=== PATIENT | male | born 1945 | race Caucasian/White ===

== ENCOUNTER 2019-06-29 15:12 | Inpatient (IN) ==
[2019-06-29 16:10] LABS: Appearance Urine Clear (Clear); Bacteria Urine Automated Negative (Negative); Blood Urine Negative (Negative); Color Urine Dark Yellow; Glucose Urine UA Negative (Negative); Ketones Urine Trace (Negative); Leukocyte Esterase Urine Negative (Negative); Nitrite Urine Negative (Negative); Protein Urine 1+ (Negative); RBC Urine Automated 0-4 /hpf (0-4); Specific Gravity Urine 1.032 (1.000-1.030); Urobilinogen Urine Negative (Negative)
[2019-06-29 16:12] LABS: Bilirubin Urine Negative (Negative); Ictotest Urine Negative (Negative)
[2019-06-29 16:20] LABS: Mucus Urine Present (None Prsent)
[2019-06-29 16:26] LABS: Basophils # (auto) 0.03 K/uL (0-0.2); Basophils % (auto) 0.3 %; Eosinophils # (auto) 0.03 K/uL (0-0.5); Eosinophils % (auto) 0.3 %; Hematocrit (blood only) 44.7 % (42-52); Immature Granulocytes # (auto) 0.03 K/uL (0.00-0.02); Immature Granulocytes % (auto) 0.3 %; Lymphocytes # (auto) 1.14 K/uL (1.2-3.4); Lymphocytes % (auto) 12.2 %; Mean Corpuscular Hemoglobin 32.9 pg (25-34); Mean Corpuscular Hgb Conc 35.8 g/dL (32-36); Mean Platelet Volume 8.2 fL (7.4-10.4); Monocytes # (auto) 1.09 K/uL (0.11-0.59); Monocytes % (auto) 11.6 %; Neutrophils # (auto) 7.04 K/uL (1.4-6.5); Neutrophils % (auto) 75.3 %; Platelet Count 213 K/uL (130-400); RDW Coefficient of Variation 12.8 % (11.5-14.5); RDW Standard Deviation 43.3 fL (36.4-46.3); Red Blood Count 4.86 M/uL (4.7-6.1); White Blood Count 9.36 K/uL (4.8-10.8)
[2019-06-29 16:33] LABS: Amphetamines+Metham, Urine Neg (Neg); Barbiturates, Urine Neg (Neg); Benzodiazepine, Urine Neg (Neg); Cocaine, Urine Neg (Neg); MDMA (Ecstacy), Urine Neg (Neg); Methadone, Urine Neg (Neg); Opiate, Urine Neg (Neg); Phencyclidine, Urine Neg (Neg)
[2019-06-29 16:44] LABS: Albumin Level 4.4 gm/dl (3.4-5.0); BUN Creatinine Ratio 20.8 (10-20); Calcium 9.7 mg/dl (8.5-10.1); Creatinine Clr Calc Pharmacy 63.5 ml/min; Est GFR (African American) 71.3; Est GFR (Non-African American) 61.5
[2019-06-29 16:49] LABS: Acetaminophen < 2 ug/ml (10-30)
[2019-06-29 16:50] LABS: Salicylate < 1.7 mg/dl (2.8-20)
[2019-06-29 16:55] LABS: Albumin Globulin Ratio 1.3 (0.9-2); Bilirubin,Total 0.9 mg/dl (0.2-1); Globulin 3.4 gm/dl (2.5-4.0); Thyroid Stimulating Hormone 2.57 uIu/ml (0.300-4.500); Total Protein 7.8 gm/dl (6.4-8.2)
--- NOTE | 2019-06-29 17:00 | CT Scan Report ---
CT head/brain wo con CLINICAL HISTORY: 73 years-old Male with confusion. Acutely altered mental status with confusion TECHNIQUE: Multiple axial CT images of the head were obtained without contrast. A dose lowering tech nique was utilized adhering to the principles of ALARA. CT DOSE: 614.27 mGy.cm COMPARISON: None. FINDINGS: No acute intracranial hemorrhage, midline shift, intracranial mass, hydrocephalus, territorial ischem ia or abnormal extra-axial collection. Mild age-related involutional changes. Cerebral vascular calci fications are noted. The calvarium is intact. Mastoid air cells are clear. Mild mucosal thickening about the paranasal si nuses. Soft tissues and orbits are unremarkable. Prior bilateral cataract repair. IMPRESSION: No acute intracranial abnormality. The above report was generated using voice recognition software. It may contain grammatical, syntax o r spelling errors. Electronically signed by: Bill Duffy M.D. 06/29/2019 4:59 PM
--- NOTE | 2019-06-29 17:24 | Emergency Department Note ---
Entered by Israel Adhikari acting as a scribe for History of Present Illness General Chief complaint: Mental Health Evaluation Stated complaint: MENTAL HEALTH EVALUATION Time Seen by Provider: 06/29/19 16:21 Source: patient Limitations: no limitations History of Present Illness Location: head Pain Consistency: + intermittent Quality: + other (hallucinations) Exacerbated By: + other (getting kicked out of son's house) Associated symptoms: + denies other symptoms (diarrhea, suicidality, ) and + other (hearing voices); no nausea/vomiting Treatments prior to arrival: none The patient is a 73 year old male who presents to the Emergency Room for a mental health evaluation. The patient states his son thinks he is crazy. He notes he used to live with his son and [id number] but states he was kicked out after his [id number]'s parents moved in. He states he has been either living his his car, his brother's house, or his daughter's house for the past few months. He notes people have been talking to him and he has been talking back. He states that no one else can see the people that he has been talking to. Nursing notes the patient's son is concerned because the patient is talking to people that are not there. The patient notes he can intermittently hear other people and nobody else can. The patient notes he has never been diagnosed with any mental disorder. He states he does not take any medications regularly. He notes he used to drink a lot of alcohol but now he usually drinks 2-3 beers a day. He notes he had his last drink 3 nights ago. The patient denies vomiting, diarrhea, trying to hurt himself before, and taking any drugs. He states he is not suicidal but he might go there. He states he chews tobacco. 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 and A total of 10 systems reviewed and were otherwise negative Physical Exam Vital Signs Vital Signs - 24 hr 06/29/19 15:22 06/29/19 17:21 Temperature 37.2 C Temperature Source Oral Sepsis Recent Fever Within 48 Hours No Sepsis Action Taken by Nursing No Action Required Pulse Rate 95 H Pulse Rate [Apical] 88 Pulse Rhythm Regular Pulse Strength Normal Respiratory Rate 16 18 Respiratory Effort / Characteristics Non-Labored Respiratory Depth Normal Respiratory Pattern Regular Blood Pressure 159/91 H Blood Pressure [Left Arm] 149/90 H Blood Pressure Mean 113 Blood Pressure Mean [Left Arm] 109 Blood Pressure Position Sitting Pulse Oximetry 97 97 Oxygen Delivery Method Room Air Room Air GENERAL: Patient is in no acute distress. HEENT: No acute trauma, normocephalic atraumatic, mucous membranes moist, no nasal congestion, no scleral icterus. NECK: No stridor, no adenopathy, no meningismus, trachea is midline. LUNGS: Clear to auscultation bilaterally, no wheeze, no rhonchi, breath sounds equal. HEART: Without murmurs gallops or rubs, regular rate and rhythm. ABDOMEN: Soft, nontender, bowel sounds positive, no hernias, no peritonitis. EXTREMITIES: No cyanosis or edema, full range of motion of all the joints without pain or difficulty, no signs for acute trauma. NEUROLOGIC: Oriented x 3, no acute motor or sensory deficits, no focal weakness. SKIN: No rash, no jaundice, no diaphoresis. PSYCH: Cooperative. Admits to hearing voices that others cannot. Denies active suicidality but is concerned that things could escalate quickly. Course 1626: The patient was evaluated in room A8, and a complete history and physical examination were performed. 1926: The patient is being referred to [address] [place] [address]. 2144: The patient has been admitted to [address] [place] [address]. Medical Decision Making Differential Diagnosis Differential Diagnosis: Intracranial bleeding, dementia, psychosis, suicidality, mental break, hallucinations, and electrolyte imbalance. Medical Records Attestation: I reviewed the patient's medical records. Home Medications Current Medication List: was personally reviewed by me Laboratory Data Attestation: I reviewed the patient's lab results. Result diagrams: 06/29/19 16:04 06/29/19 16:04 Lab Results 06/29/19 06/29/19 06/29/19 Range/Units 15:47 15:47 16:04 WBC 9.36 (4.8-10.8) K/uL RBC 4.86 (4.7-6.1) M/uL Hgb 16.0 (14.0-18.0) g/dL Hct 44.7 (42-52) % MCV 92.0 (80-100) fL MCH 32.9 (25-34) pg MCHC 35.8 (32-36) g/dL RDW Std Deviation 43.3 (36.4-46.3) fL RDW Coeff of Mavis 12.8 (11.5-14.5) % Plt Count 213 (130-400) K/uL MPV 8.2 (7.4-10.4) fL Immature Gran % (Auto) 0.3 % Neut % (Auto) 75.3 % Lymph % (Auto) 12.2 % [place] % (Auto) 11.6 % Eos % (Auto) 0.3 % Baso % (Auto) 0.3 % Immature Gran # (Auto) 0.03 H (0.00-0.02) K/uL Neut # (Auto) 7.04 H (1.4-6.5) K/uL Lymph # (Auto) 1.14 L (1.2-3.4) K/uL [place] # (Auto) 1.09 H (0.11-0.59) K/uL Eos # (Auto) 0.03 (0-0.5) K/uL Baso # (Auto) 0.03 (0-0.2) K/uL Sodium (136-145) mmol/L Potassium (3.5-5.1) mmol/L Chloride (98-107) mmol/L Carbon Dioxide (21-32) mmol/L Anion Gap (3-11) BUN (7-18) mg/dl Creatinine (0.6-1.4) mg/dl Est Cr Clr Drug Dosing ml/min Est GFR ( Amer) Est GFR (Non-Af Amer) BUN/Creatinine Ratio (10-20) Glucose (70-99) mg/dl Calcium (8.5-10.1) mg/dl Total Bilirubin (0.2-1) mg/dl AST (15-37) U/L ALT (12-78) U/L Alkaline Phosphatase (45-117) U/L Total Protein (6.4-8.2) gm/dl Albumin (3.4-5.0) gm/dl Globulin (2.5-4.0) gm/dl Albumin/Globulin Ratio (0.9-2) TSH (0.300-4.500) uIu/ml Urine Color Dark Yellow Urine Appearance Clear (Clear) Urine pH 5.0 (4.5-7.5) Ur Specific [place] 1.032 H (1.000-1.030) Urine Protein 1+ H (Negative) Urine Glucose (UA) Negative (Negative) Urine Ketones Trace H (Negative) Urine Blood Negative (Negative) Urine Nitrite Negative (Negative) Urine Bilirubin Negative (Negative) Urine Urobilinogen Negative (Negative) Ur Leukocyte Esterase Negative (Negative) Urine WBC (Auto) 1-5 (0-5) /hpf Urine RBC (Auto) 0-4 (0-4) /hpf U Hyaline Cast (Auto) 5-10 H (0-5) /lpf U Epithel Cells (Auto) 10-20 H (0-5) /lpf Urine Bacteria (Auto) Negative (Negative) Urine Mucus Present A (None Prsent) Salicylates (2.8-20) mg/dl Urine Opiates Screen Neg (Neg) Ur Methadone, Qual Neg (Neg) Acetaminophen (10-30) ug/ml Urine Barbiturates Neg (Neg) Ur Phencyclidine (PCP) Neg (Neg) U Amphetamin/Meth Scrn Neg (Neg) MDMA (Ecstasy) Screen Neg (Neg) U Benzodiazepines Scrn Neg (Neg) Ur Cocaine Metabolite Neg (Neg) U Marijuana (THC) Screen Neg (Neg) Ethyl Alcohol mg/dL (0-3) mg/dl 06/29/19 06/29/19 06/29/19 Range/Units 16:04 16:04 16:04 WBC (4.8-10.8) K/uL RBC (4.7-6.1) M/uL Hgb (14.0-18.0) g/dL Hct (42-52) % MCV (80-100) fL MCH (25-34) pg MCHC (32-36) g/dL RDW Std Deviation (36.4-46.3) fL RDW Coeff of Mavis (11.5-14.5) % Plt Count (130-400) K/uL MPV (7.4-10.4) fL Immature Gran % (Auto) % Neut % (Auto) % Lymph % (Auto) % [place] % (Auto) % Eos % (Auto) % Baso % (Auto) % Immature Gran # (Auto) (0.00-0.02) K/uL Neut # (Auto) (1.4-6.5) K/uL Lymph # (Auto) (1.2-3.4) K/uL [place] # (Auto) (0.11-0.59) K/uL Eos # (Auto) (0-0.5) K/uL Baso # (Auto) (0-0.2) K/uL Sodium 136 (136-145) mmol/L Potassium 4.0 (3.5-5.1) mmol/L Chloride 102 (98-107) mmol/L Carbon Dioxide 27 (21-32) mmol/L Anion Gap 8.0 (3-11) BUN 24 H (7-18) mg/dl Creatinine 1.17 (0.6-1.4) mg/dl Est Cr Clr Drug Dosing 63.5 ml/min Est GFR ( Amer) 71.3 Est GFR (Non-Af Amer) 61.5 BUN/Creatinine Ratio 20.8 H (10-20) Glucose 106 H (70-99) mg/dl Calcium 9.7 (8.5-10.1) mg/dl Total Bilirubin 0.9 (0.2-1) mg/dl AST 18 (15-37) U/L ALT 19 (12-78) U/L Alkaline Phosphatase 76 (45-117) U/L Total Protein 7.8 (6.4-8.2) gm/dl Albumin 4.4 (3.4-5.0) gm/dl Globulin 3.4 (2.5-4.0) gm/dl Albumin/Globulin Ratio 1.3 (0.9-2) TSH 2.570 (0.300-4.500) uIu/ml Urine Color Urine Appearance (Clear) Urine pH (4.5-7.5) Ur Specific [place] (1.000-1.030) Urine Protein (Negative) Urine Glucose (UA) (Negative) Urine Ketones (Negative) Urine Blood (Negative) Urine Nitrite (Negative) Urine Bilirubin (Negative) Urine Urobilinogen (Negative) Ur Leukocyte Esterase (Negative) Urine WBC (Auto) (0-5) /hpf Urine RBC (Auto) (0-4) /hpf U Hyaline Cast (Auto) (0-5) /lpf U Epithel Cells (Auto) (0-5) /lpf Urine Bacteria (Auto) (Negative) Urine Mucus (None Prsent) Salicylates < 1.7 L (2.8-20) mg/dl Urine Opiates Screen (Neg) Ur Methadone, Qual (Neg) Acetaminophen < 2 L (10-30) ug/ml Urine Barbiturates (Neg) Ur Phencyclidine (PCP) (Neg) U Amphetamin/Meth Scrn (Neg) MDMA (Ecstasy) Screen (Neg) U Benzodiazepines Scrn (Neg) Ur Cocaine Metabolite (Neg) U Marijuana (THC) Screen (Neg) Ethyl Alcohol mg/dL < 3.0 (0-3) mg/dl Imaging Data Radiologist's Impression: Radiology results as stated below per my review and the radiologist's interpretation: CT head/brain wo con CLINICAL HISTORY: 73 years-old Male with confusion. Acutely altered mental status with confusion TECHNIQUE: Multiple axial CT images of the head were obtained without contrast. A dose lowering technique was utilized adhering to the principles of ALARA. CT DOSE: 614.27 mGy.cm COMPARISON: None. FINDINGS: No acute intracranial hemorrhage, midline shift, intracranial mass, hydrocephalus, territorial ischemia or abnormal extra-axial collection. Mild age-related involutional changes. Cerebral vascular calcifications are noted. The calvarium is intact. Mastoid air cells are clear. Mild mucosal thickening about the paranasal sinuses. Soft tissues and orbits are unremarkable. Prior bilateral cataract repair. IMPRESSION: No acute intracranial abnormality. The above report was generated using voice recognition software. It may contain grammatical, syntax or spelling errors. Electronically signed by: Bill Duffy M.D. 06/29/2019 4:59 PM Blood Pressure Blood Pressure Findings: Elevated blood pressure Blood Pressure Disposition: further management by hospitalist CLARISSE Narrative There is no leukocytosis or concerning anemia. No significant electrolyte abnormality or kidney failure. No liver enzyme elevation. The patient appears to be in a euthyroid state. Urinalysis does not show evidence for infection, some contamination was seen. Urine tox was negative. Alcohol, Tylenol and aspirin levels were basically undetectable. Brain CT showed no acute bleed or mass-effect. The patient presents with hallucinations. He believes he is seeing people that no one else can see and he is talking to people that no one else can hear. He believes he is being watched. The patient denies active suicidality but is concerned that things may escalate to that point. His son is concerned about the patient's mental health and safety. The patient has been living out of his car and sometimes staying with family. Patient was seen by psychiatry case management. A referral was made to our psychiatric unit on [address]. They did accept the patient. Patient will be hospitalized for his psychosis. The patient has been cooperative during his ED stay. The patient was admitted voluntarily. Impression & Plan Suicidal ideation, Hallucination, Psychosis Discharge Plan Visit Data Chief Complaint: Mental Health Evaluation Stated Complaint: MENTAL HEALTH EVALUATION ED Provider: Abram Hughes Discharge Problem: Suicidal ideation, Hallucination, Psychosis Patient Disposition: Transfer Behavioral Health Fac Discharge Instructions Interventions: ED Discharge Assessment Last Done: 06/29/19 22:09 Discharge Problem: Psychosis Qualifiers: Psychosis type: unspecified psychosis type Qualified Code(s): F29 - Unspecified psychosis not due to a substance or known physiological condition The scribe's documentation has been prepared under my direction and personally reviewed by me in its entirety. I confirm that the note above accurately reflects all work, treatment, procedures, and medical decision making performed by me.
[2019-06-29] MEDS ORDERED: MAGNESIUM HYDROXIDE SUSP 30 ML UDC PO PRN (21:25)
[2019-06-29] MEDS ORDERED: BISMUTH SUBSALICYLATE PER ML OMNICELL CHARGE PO PRN (21:25)
[2019-06-29] MEDS ORDERED: SODIUM CHLORIDE 0.65% NA SOLN 45 ML (OCEAN) PRN (21:25)
[2019-06-29] MEDS ORDERED: ACETAMINOPHEN 325 MG TAB PO PRN (21:25)
[2019-06-29] MEDS ORDERED: ALUMINUM/MAGNESIUM SUSP 30 ML UDC PO PRN (21:25)
[2019-06-29 22:11] VITALS: O2SAT 98
--- NOTE | 2019-06-30 07:00 | History & Physical ---
Date of Service June 30, 2019 Impression / Recommendations Impression 73-year-old male admitted voluntarily for inpatient psychiatric treatment due to reports of auditory and visual hallucinations and paranoia. Pt demonstrated poor self-care, as he had believed he was kicked out of his son's home and began living in his car. Pt believes that he is being monitored by unknown individuals, and was told this will continue for "the rest of my life." Pt has no prior psychiatric history, which raises suspicion as to a possible organic cause for his presentation. We will require collateral information from the patient's family to better determine. Will treat as psychosis, NOS while additional information is gathered. While differential includes brief psychotic disorder, mood disorder with psychotic features, or other psychiatric etiology; it is also possible that the patient's condition may be related to organic causes. CT in the ED was unremarkable, and attempts to get an MRI prior to patient's admission were unsuccessful. Lab work in the ED was largely WNL. Would be beneficial to obtain a MoCA or other cognitive assessment during this admission as well. We will add B12, folic acid, and heavy metals testing to his fasting glucose and lipid panel tomorrow. Will suggest patient utilize risperidone 0.5mg q4h prn for psychosis/anxiety related to hallucinations. At this time, patient demonstrates a high risk of harm to self or others given reported suicidal and homicidal commands from his auditory hallucinations. Will maintain private room until his risk to others is better assessed. Inpatient psychiatric admission is medically necessary at this time due to hallucinations, paranoia, and demonstrated inability to care for self outside of a supervised setting. Dr. Pratibha Biswas was directly involved in review and discussion of the patient's case and participated in medical decision making regarding treatment recommendations. (1) Suicidal ideation: 06/30 - Denies intent to harm self, but admits to hearing commands to kill himself and others - Admitted to a locked inpatient behavioral health unit, on q15 minute safety checks - MNPR until safety can be adequately assessed - Encourage medication initiation/adjustments as indicated - Encourage participation in group and recreational therapies - Gather collateral information from outpatient providers - Suggest family meeting to involve outpatient supports in safety planning - Arrange appropriate aftercare (2) Psychosis: 06/30 - Very wide differential for this patient, as his presentation of psychosis is not typical given his age and lack of prior psychiatric history. - Gather collateral information from patient's family - Encourage use of risperidone 0.5mg q4h prn psychosis/anxiety - Fasting glucose and lipid panel ordered for tomorrow morning - Will attempt to further rule out organic cause of psychosis with additional blood work: B12, folic acid, heavy metals - Will be ideal for patient to have an MRI after discharge, as it is possible the patient's condition is organic in nature. Attempts to have an MRI prior to admission were not successful. Psychosis type: unspecified psychosis type Qualified Code(s): F29 - Unspecified psychosis not due to a substance or known physiological condition (3) Alcohol abuse: 06/30 - Pt reports rather significant history of alcohol abuse. States he has not been drinking for several days prior to admission. - Vitals every shift, with close observation for signs of withdrawal - can order AWSS protocol if needed - Pt unable to participate in intervention at this time, can readdress when more appropriate Inventory Assets Strengths: willingness for treatment, supportive family Needs: additional medical work-up, gather collateral information, initiation of medication to allow for resolution of hallucinations Risk Factors Assessment Male: Yes : Yes Do You Have Access To A Gun?: Yes (gives convoluted report, but ultimately admits to having access) Health Problems: No Mental Health Diagnoses: No Substance Use Disorders: Yes Previous Attempt: No Family History of Suicide: No Previous Psychiatric Hospitalization: No Hopelessness: No Protective Factors Assessment Anabaptist Beliefs: No : No Responsible for Young Children: No Employed: No (retired) Stable Relationships: No Supportive Family: Yes Psychiatric History Identifying Data KRISHNA CERVANTES is a 73-year-old M who reports he has been living in a car for the past 2 months, having previously lived with his son and [id number] for the past 5 years. Pt has no known psychiatric history but was admitted on 06/29/19 22:08 on a 201 voluntary commitment for reports of auditory/visual hallucinations, paranoia, disorganization, and inability to care for self. Daughter and son were reportedly concerned and suggested mental health evaluation. Information from the patient is not clearly reliable. Chief Complaint "Ok, I guess. I don't really like to talk, they're listening in now." History of Present Illness Krishna Cervantes (Russ) is a 73-year-old male admitted voluntarily for inpatient psychiatric treatment due to onset of hallucinations and paranoia in the past "couple months." Pt was reportedly living out of his car recently, and has demonstrated an inability to care for himself. Pt had reported the voices he hears are giving commands to harm both himself and others. Pt's son was present in the ED and confirmed that this is behavior that he has not previously noticed in his father, with whom he had been living for several years. Pt is agreeable to evaluation today; however, he reports he is concerned as "they are listening in now." Pt states that he believes he is being "monitored" by "them" - having people listening in on his conversations. Pt states the voices began about 2 months prior to his admission, and have informed him that they will continue to monitor him "for the rest of my life, they told me they would be with me til I ." Pt's best explanation of the voices' onset is - "They said they're getting back at me after I threatened Maddy's [DIL] parents." Pt reports that he had been living in a "rented room in my son's basement", and that "my [id number] parents lived across the stairs. They were talking about me, I could hear them." Pt states initially that he did not confront the individuals, but then later contradicts himself by reporting "I told them they're kimo I don't shoot them." Pt states that the current voices did not begin immediately after the situation, but with a "break in between." Pt reports hearing at least 6 voices, both male and female. He states they occur both individually and "altogether." When asked if there is any place he finds retreat from the voices, he states, "I haven't found it yet." Pt admits that they are listening in on the evaluation, and that they are "interrupting us." He states he is being told to "take my phone and put it in a dumpster." After making this statement, the patient huffs and shakes his head. He states they have been in his room since his admission and "even monitor me in the bathroom." When asked what patient feels he needs from this admission, he states, "You could help me figure out who these guys are, that way I can take them to court or have them arrested or something." When offered medication that could help the voices to lessen and allow him to think clearly, the patient states "ME taking a medication is going to make THEM go away, mendoza! They said they'll be here for the rest of my life." He does admit that they are telling him to harm himself - "like drive myself between two semis, or shoot myself between the eyes." Pt denies today that he has been told to harm others, but also shares with this provider that things the voices say are "things I can't repeat." In the ED, he did admit to hearing commands to harm others. Pt reports his mood has been lower that usual, but reports it is in the context of these voices. He states he has not been sleeping well, also blaming his difficulty falling and staying asleep on "the surveillance." Pt states he continues to have an appetite and is "hungry", but that he has not been eating as much since he has been living in his car. Pt believes he has been evicted from his son's house, which we were informed is not the case. Pt admits to difficulty concentrating because of the voices. He reports paranoia. Pt denies any prior history of psychiatric concerns. He has never been hospitalized for mental health conditions or was seen for counseling. He admits to consuming beer - 2-3 cans daily, for "mendoza, all my life." Pt states he has not had a drink in about 3-4 days. He denies use of illicit substances. Past Psychiatric History Previous Psych History: None Current Psychiatric Diagnosis: No prior MH diagnosis Outpatient Services: None Previous Psych Admissions: Denies Do You Have Access To A Gun?: Yes (gives convoluted report, but ultimately admits to having access) History of Previous Suicide Attempt: No Describe Attempts in the Past: None Past Medication Trials: None Past Head Trauma/Neuro History History of Concussion/Seizure: No Allergies Allergy/AdvReac Type Severity Reaction Status Date / Time Penicillins Allergy Unknown Unknown Verified 06/29/19 20:39 Home Medications Home Medications Medication Instructions Recorded Confirmed Type No Known Home Medications 06/29/19 06/29/19 History Family History Family History of: None Alcohol History Hx of Alcohol Use Over the Past 12 Months: Yes (2-3 beers daily. none past few days) AUDIT Total Score: 3 Pt reports consuming 2-3 beers a night, for "years". He states he may at times consume up to a 6-pack. Has not had a drink for several days prior to admission. He reports history of 5 DUIs, most recently in 2012. Incarcerated in 2002 for his 4th. 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 Beliefs That Will Affect Care: None Feels Safe at Home: Yes Smoking Status: Never smoker Review of Systems Review of Systems: Constitutional: reports increased fatigue Cardiovascular: reports tachycardia when hearing the voices Respiratory: reports SOB when hearing the voices Gastrointestinal: reports episodic abdominal pain Neurological: reports often feeling lightheaded in the AM, improves over the course of the day Psychiatric: denies symptoms other than stated above Musculoskeletal: reports generalized body aches, knee pain Total of at least 10 systems reviewed, pertinent positives as above and in HPI. Physical Exam Psychiatric: Orientation: alert, cooperative (superfically, preoccupied with hallucinations) and + guarded Apperance: appropriately dressed, appropriately groomed and appeared stated age Eye Contact: + fair eye contact Motor Behavior: steady gait and station and no abnormal motor movements Speech: normal rate/rhythm/volume of speech (only brief responses to questions) Affect: + flat affect Mood: + depressed mood ("really not too good") and + anxious mood Thought Process: + circumstantial thought process, + perseveration and + concrete thought process Thought Content: + preoccupation (with hallucinations, stopping conversations to report when they interrupt), + paranoid and + delusions Suicidal Thoughts: denies suicidal thoughts and denies suicidal intent But admits that voices are telling him to harm himself Homicidal Thoughts: denies homicidal thoughts but admitted in the ED that voices are telling him to harm others Hallucinations: + auditory hallucinations (at least 6 voices, male and female, occur constantly) and + visual hallucinations (verbalized visual hallucinations in the ED) Cognition: attention grossly intact and language grossly intact Estimated Intelligence: consistent with education level Insight: + severely impaired insight Judgement: + severely impaired judgement Vital Signs (Past 24 Hours): Last Vital Signs Temp 37.2 C 06/29/19 22:17 Pulse 77 06/29/19 22:17 Resp 19 06/29/19 22:17 BP 135/78 06/29/19 22:17 Pulse Ox 98 06/29/19 22:17 Exam Statement: A physical exam was performed in the ER prior to admission to the unit by Dr. Abram Hughes MD. I accept that physical as correct/medical clearance for the inpatient physical exam. Results & Data Laboratory Results Laboratory Results - last 24 hr 06/29/19 06/29/19 06/29/19 15:47 15:47 16:04 WBC 9.36 RBC 4.86 Hgb 16.0 Hct 44.7 MCV 92.0 MCH 32.9 MCHC 35.8 RDW Std Deviation 43.3 RDW Coeff of Mavis 12.8 Plt Count 213 MPV 8.2 Immature Gran % (Auto) 0.3 Neut % (Auto) 75.3 Lymph % (Auto) 12.2 Rapides % (Auto) 11.6 Eos % (Auto) 0.3 Baso % (Auto) 0.3 Immature Gran # (Auto) 0.03 H Neut # (Auto) 7.04 H Lymph # (Auto) 1.14 L Rapides # (Auto) 1.09 H Eos # (Auto) 0.03 Baso # (Auto) 0.03 Sodium Potassium Chloride Carbon Dioxide Anion Gap BUN Creatinine Est Cr Clr Drug Dosing Est GFR ( Amer) Est GFR (Non-Af Amer) BUN/Creatinine Ratio Glucose Calcium Total Bilirubin AST ALT Alkaline Phosphatase Total Protein Albumin Globulin Albumin/Globulin Ratio TSH Urine Color Dark Yellow Urine Appearance Clear Urine pH 5.0 Ur Specific Guthrie 1.032 H Urine Protein 1+ H Urine Glucose (UA) Negative Urine Ketones Trace H Urine Blood Negative Urine Nitrite Negative Urine Bilirubin Negative Urine Urobilinogen Negative Ur Leukocyte Esterase Negative Urine WBC (Auto) 1-5 Urine RBC (Auto) 0-4 U Hyaline Cast (Auto) 5-10 H U Epithel Cells (Auto) 10-20 H Urine Bacteria (Auto) Negative Urine Mucus Present A Salicylates Urine Opiates Screen Neg Ur Methadone, Qual Neg Acetaminophen Urine Barbiturates Neg Ur Phencyclidine (PCP) Neg U Amphetamin/Meth Scrn Neg MDMA (Ecstasy) Screen Neg U Benzodiazepines Scrn Neg Ur Cocaine Metabolite Neg U Marijuana (THC) Screen Neg Ethyl Alcohol mg/dL 06/29/19 06/29/19 06/29/19 16:04 16:04 16:04 WBC RBC Hgb Hct MCV MCH MCHC RDW Std Deviation RDW Coeff of Mavis Plt Count MPV Immature Gran % (Auto) Neut % (Auto) Lymph % (Auto) Rapides % (Auto) Eos % (Auto) Baso % (Auto) Immature Gran # (Auto) Neut # (Auto) Lymph # (Auto) Rapides # (Auto) Eos # (Auto) Baso # (Auto) Sodium 136 Potassium 4.0 Chloride 102 Carbon Dioxide 27 Anion Gap 8.0 BUN 24 H Creatinine 1.17 Est Cr Clr Drug Dosing 63.5 Est GFR ( Amer) 71.3 Est GFR (Non-Af Amer) 61.5 BUN/Creatinine Ratio 20.8 H Glucose 106 H Calcium 9.7 Total Bilirubin 0.9 AST 18 ALT 19 Alkaline Phosphatase 76 Total Protein 7.8 Albumin 4.4 Globulin 3.4 Albumin/Globulin Ratio 1.3 TSH 2.570 Urine Color Urine Appearance Urine pH Ur Specific Guthrie Urine Protein Urine Glucose (UA) Urine Ketones Urine Blood Urine Nitrite Urine Bilirubin Urine Urobilinogen Ur Leukocyte Esterase Urine WBC (Auto) Urine RBC (Auto) U Hyaline Cast (Auto) U Epithel Cells (Auto) Urine Bacteria (Auto) Urine Mucus Salicylates < 1.7 L Urine Opiates Screen Ur Methadone, Qual Acetaminophen < 2 L Urine Barbiturates Ur Phencyclidine (PCP) U Amphetamin/Meth Scrn MDMA (Ecstasy) Screen U Benzodiazepines Scrn Ur Cocaine Metabolite U Marijuana (THC) Screen Ethyl Alcohol mg/dL < 3.0 Current Inpatient Medications Current Inpatient Medications: Current Inpatient Medications Acetaminophen (Tylenol) 650 mg PO Q4H PRN PRN Reason: Headache or Minor Fever Stop: 07/29/19 21:24 Al Hydrox/Mg Hydrox/Simethicone (Maalox) 30 ml PO Q4H PRN PRN Reason: GI Upset Stop: 07/29/19 21:24 Bismuth Subsalicylate (Kaopectate) 15 ml PO PRN PRN PRN Reason: Loose Stool Stop: 07/29/19 21:24 Hydroxyzine HCl (Vistaril) 25 mg PO Q4H PRN PRN Reason: Anxiety Stop: 07/29/19 21:24 Hydroxyzine HCl (Vistaril) 50 mg PO HSZ PRN PRN Reason: Insomnia Stop: 07/29/19 21:24 Magnesium Hydroxide (Milk Of Magnesia) 30 ml PO DAILY PRN PRN Reason: Heartburn Stop: 07/29/19 21:24 Risperidone (Risperdal) 0.5 mg PO Q6H PRN PRN Reason: Agitation/Psychosis Stop: 07/29/19 21:26 Sodium Chloride ([place] Nasal) 1 - 2 sprays NA PRN PRN PRN Reason: Nasal Dryness/Congestion Stop: 07/29/19 21:24 CPT Code CPT Code Initial Hospital Care: 06238
[2019-06-30] MEDS: risperiDONE 0.5 MG TABLET PO PRN ×2 (13:24→20:45)
[2019-06-30] MEDS ORDERED: NICOTINE POLACRILEX 2 MG GUM MT PRN (14:13)
[2019-07-01] MEDS ORDERED: risperiDONE 0.5 MG TABLET PO PRN (07:02)
[2019-07-01] MEDS ORDERED: risperiDONE 1 MG TABLET PO PRN (07:58)
[2019-07-01 07:59] LABS: Glucose Fasting 103 mg/dl (70-99)
[2019-07-01 08:05] LABS: Chol HDL Ratio 3; Cholesterol 126 mg/dl (0-200); HDL Cholesterol 46 mg/dl; LDL Cholesterol Calculated 66 mg/dl; Triglycerides 68 mg/dl (0-150); VLDL Cholesterol 14 mg/dl
--- NOTE | 2019-07-01 08:26 | Psychiatric Progress Note ---
Date of Service July 01, 2019 Impression / Recommendations Impression 73-year-old male admitted voluntarily for inpatient psychiatric treatment due to reports of auditory and visual hallucinations and paranoia. Pt demonstrated poor self-care, as he had believed he was kicked out of his son's home and began living in his car. Pt believes that he is being monitored by unknown individuals, and was told this will continue for "the rest of my life." Pt has no prior psychiatric history, which raises suspicion as to a possible organic cause for his presentation. We will require collateral information from the patient's family to better determine. Will treat as psychosis, NOS while additional information is gathered. While differential includes brief psychotic disorder, mood disorder with psychotic features, or other psychiatric etiology; it is also possible that the patient's condition may be related to organic causes. CT in the ED was unremarkable, and attempts to get an MRI prior to patient's admission were unsuccessful. Lab work in the ED was largely WNL. Would be beneficial to obtain a MoCA or other cognitive assessment during this admission as well. Fasting lipid panel is WNL, glucose is slightly elevated at 103. Folic acid and B12 were WNL, heavy metals testing is pending. Risperidone was increased to 1mg PO q4h prn for psychosis/anxiety related to hallucinations. If risperidone remains ineffective, will consider trail of haloperidol. At this time, patient demonstrates a high risk of harm to self or others given reported suicidal and homicidal commands from his auditory hallucinations. Will maintain private room until his risk to others is better assessed. Inpatient psychiatric admission is medically necessary at this time due to hallucinations, paranoia, and demonstrated inability to care for self outside of a supervised setting. (1) Suicidal ideation: 06/30 - Denies intent to harm self, but admits to hearing commands to kill himself and others - Admitted to a locked inpatient behavioral health unit, on q15 minute safety checks - MNPR until safety can be adequately assessed - Encourage medication initiation/adjustments as indicated - Encourage participation in group and recreational therapies - Gather collateral information from outpatient providers - Suggest family meeting to involve outpatient supports in safety planning - Arrange appropriate aftercare 07/01 - Ongoing; both in that voices are telling him to hurt himself, and in that he is requesting assistance with ending his life - Continue MNPR until response to interventions is observed (2) Psychosis: 06/30 - Very wide differential for this patient, as his presentation of psychosis is not typical given his age and lack of prior psychiatric history. - Gather collateral information from patient's family - Encourage use of risperidone 0.5mg q4h prn psychosis/anxiety - Fasting glucose and lipid panel ordered for tomorrow morning - Will attempt to further rule out organic cause of psychosis with additional blood work: B12, folic acid, heavy metals - Will be ideal for patient to have an MRI after discharge, as it is possible the patient's condition is organic in nature. Attempts to have an MRI prior to admission were not successful. 07/01 - Risperidone increased to 1mg POq4h prn - if higher dosage remains ineffective, will likely trial haloperidol to target his ongoing hallucinations - Pt remains agreeable to medications, though does not believe they will be beneficial - Fasting glucose slightly elevated at 103; lipid panel is WNL - Folic acid and B12 are WNL - Heavy metals is pending (3) Alcohol abuse: 06/30 - Pt reports rather significant history of alcohol abuse. States he has not been drinking for several days prior to admission. - Vitals every shift, with close observation for signs of withdrawal - can order AWSS protocol if needed - Pt unable to participate in intervention at this time, can readdress when more appropriate 07/01 - Continue vitals every shift - no significant change to suggest AWSS is necessary at this time Inventory Assets Strengths: willingness for treatment, supportive family Needs: additional medical work-up, gather collateral information, initiation of medication to allow for resolution of hallucinations Risk Factors Assessment Male: Yes : Yes Do You Have Access To A Gun?: Yes (gives convoluted report, but ultimately admits to having access) Health Problems: No Mental Health Diagnoses: No Substance Use Disorders: Yes Previous Attempt: No Family History of Suicide: No Previous Psychiatric Hospitalization: No Hopelessness: No Protective Factors Assessment Church Beliefs: No : No Responsible for Young Children: No Employed: No (retired) Stable Relationships: No Supportive Family: Yes Interval History Identifying Information KRISHNA CERVANTES is a 73-year-old M who reports he has been living in a car for the past 2 months, having previously lived with his son and [id number] for the past 5 years. Pt has no known psychiatric history but was admitted on 06/29/19 22:08 on a 201 voluntary commitment for reports of auditory/visual hallucinations, paranoia, disorganization, and inability to care for self. Daughter and son were reportedly concerned and suggested mental health evaluation. Chief Complaint "I am feeling worse today." Review of Systems Notes Constitutional: reports fatigue Cardiovascular: denied Respiratory: denied Gastrointestinal: denied Neurological: denied Psychiatric: denies symptoms other than stated above Total of at least 10 systems reviewed, pertinent positives as above and in HPI. Sleep Information Total Hours of Sleep: 10.5 Meal Information Percent Meal Consumed - Breakfast: 0 Percent Meal Consumed - Lunch: 75 Percent Meal Consumed - Dinner: 100 Nutrition Comment: pt. asleep Subjective Subjective Patient was seen & assessed and interval progress reviewed with nursing and social work. Staff report the patient continues to isolate in his room at this time. He does feel that the voices follow him throughout the unit. Patient verbalized to staff that he wishes they would shoot him already. He reports little improvement with the use of risperidone. Patient was seen today to assess progress since admission. Patient states that he is not doing well today, believing that he is "worse than yesterday." Patient states that the auditory hallucinations are persistent, and admits that he is frustrated with having to put up with them. This provider took some time to explained to patient the medication changes that were recommended. Patient states he is agreeable to continuing to utilize medications, though he does not believe it will be helpful for him. Patient states "to have any pills that will kill me?" This provider reassured the patient that we are trying to find medications that will help him feel more comfortable here, and hopefully reduce the volume of the voices he is hearing. Patient is not optimistic that this will be helpful. He states he is not sure that he will eat lunch today as "the voices follow me, they will just tell me how to eat." The patient was encouraged to explore the unit if he felt up to it, and was reminded that there is a television, books, and other activities that he has access to. Patient requests to know where the books are located, but then states "it does not matter, I cannot read anyway. The voices just read the words over me." The patient denies specific needs or concerns at this time and continues to appear rather depressed. Physical Exam Psychiatric Orientation: alert, cooperative and + guarded Apperance: appropriately dressed, appropriately groomed and appeared stated age Eye Contact: + poor eye contact (Minimal direct eye contact, staring straight ahead) Motor Behavior: no abnormal motor movements (Observed while laying in bed) Speech: normal rate/rhythm/volume of speech (Soft volume, difficult to hear at times) Affect: + depressed affect Mood: + depressed mood Thought Process: goal directed thought process, clear/coherent thought process and + concrete thought process Thought Content: + preoccupation (With auditory hallucinations), + paranoid (Continues to believe that he is being monitored by these voices), + delusions and + hopelessness Suicidal Thoughts: + reports suicidal thoughts Patient asks this provider "do you have something that will kill me?", No reports or thoughts to harm himself here on the unit, but admits to wishing he was Hallucinations: + auditory hallucinations (Persistent) Cognition: attention grossly intact and language grossly intact Estimated Intelligence: consistent with education level Insight: + impaired insight Judgement: + impaired judgement Vital Signs (Past 24 Hours) Last Vital Signs Temp 36.3 C L 07/01/19 06:00 Pulse 102 H 07/01/19 06:58 Resp 18 07/01/19 06:00 BP 130/74 07/01/19 06:58 Pulse Ox 98 06/29/19 22:17 Results & Data Laboratory Results Laboratory Results - last 24 hr 07/01/19 07/01/19 07/01/19 07:22 07:22 07:22 Fasting Glucose 103 H Triglycerides 68 Cholesterol 126 LDL Cholesterol, Calc 66 VLDL Cholesterol, Calc 14 HDL Cholesterol 46 Cholesterol/HDL Ratio 3 Vitamin B12 Pending Folate Pending Heavy Metal Source Pending Arsenic Pending Lead Pending Mercury Pending Current Inpatient Medications Current Inpatient Medications: Current Inpatient Medications Acetaminophen (Tylenol) 650 mg PO Q4H PRN PRN Reason: Headache or Minor Fever Stop: 07/29/19 21:24 Al Hydrox/Mg Hydrox/Simethicone (Maalox) 30 ml PO Q4H PRN PRN Reason: GI Upset Stop: 07/29/19 21:24 Bismuth Subsalicylate (Kaopectate) 15 ml PO PRN PRN PRN Reason: Loose Stool Stop: 07/29/19 21:24 Hydroxyzine HCl (Vistaril) 25 mg PO Q4H PRN PRN Reason: Anxiety Stop: 07/29/19 21:24 Hydroxyzine HCl (Vistaril) 50 mg PO HSZ PRN PRN Reason: Insomnia Stop: 07/29/19 21:24 Magnesium Hydroxide (Milk Of Magnesia) 30 ml PO DAILY PRN PRN Reason: Heartburn Stop: 07/29/19 21:24 Nicotine Polacrilex (Nicorette 2mg) 1 piece MT PRN PRN PRN Reason: nicotine cravings Stop: 07/30/19 14:12 Last Admin: 06/30/19 14:47 Dose: 1 piece Documented by: Risperidone (Risperdal) 1 mg PO Q4H PRN PRN Reason: Agitation/Psychosis Stop: 07/29/19 21:26 Sodium Chloride ([place] Nasal) 1 - 2 sprays NA PRN PRN PRN Reason: Nasal Dryness/Congestion Stop: 07/29/19 21:24 Mental Health & Subst Abuse Tx Therapist Name of Therapist: None [employer]ressed [employer] Equipment Mechanic Name of Compressed Gas Equipment Mechanic: no providers Post Discharge Appointments Primary Care Physician Name Of Family Doctor: None - has not seen physician in over 53 years CPT Code CPT Code 50200 (1) Psychosis Psychosis type: unspecified psychosis type Qualified Code(s): F29 - Unspecified psychosis not due to a substance or known physiological condition
[2019-07-01 09:39] LABS: Folate (Folic Acid) 15.47 ng/ml (>5.38)
--- NOTE | 2019-07-01 12:37 | Communication Note ---
Date of Service: July 01, 2019 I personally met with the patient, and reviewed the case with MICHAEL Ramos. He was seen in his room, where he remains in bed midday. He says he does not want to get up or participate in treatment, as nothing will help. He endorses auditory hallucinations, "they're talking to me right now, saying they are going to shoot me." He is difficult to reassure that he is safe, and is declining a family meeting currently, stating it will not help. Social work contacted his daughter and confirmed that his guns have been removed and are not a family member's house. He is able to return to his son's home, and she is willing for a family meeting when the patient is able to tolerate it. Fasting lipid profile and glucose performed this morning for monitoring on an atypical antipsychotic, and notable for elevated glucose of 103. Vitamin B12 310, and folate 15.47. Heavy metals are pending.
[2019-07-01] MEDS: HALOPERIDOL 5 MG TAB PO PRN (15:33)
[2019-07-02] MEDS: HALOPERIDOL 5 MG TAB PO PRN (09:43)
--- NOTE | 2019-07-02 13:36 | Psychiatric Progress Note ---
Date of Service July 02, 2019 Impression / Recommendations Impression 73-year-old male admitted voluntarily for inpatient psychiatric treatment due to reports of auditory and visual hallucinations and paranoia. Pt demonstrated poor self-care, as he had believed he was kicked out of his son's home and began living in his car. Today, the patient provides additional information. More specifically, he is now saying that he believes that the persons who are monitoring him or who have him "under surveillance" are his zyckjcmw-qn-fpp's parents; i.e., the mother and bywxgp-lh-ryb of his son, a man with whom he had been living. Several possibly contributory factors were identified today. The patient reports that he is still grieving his 's which occurred 11 years ago. He tells me that she here at [facility] of heart disease following heart surgery and that he misses her "terribly." Also, but adds some unspecified point the patient's xtdtrrik-fn-dxe's parents moved into the home that the patient had been sharing with his son and daughter-in- law, and the patient is indicated that he felt somewhat usurped or betrayed by this decision. The patient notes that he did not get along well with the hggbqqaf-gf-aie's parents and, at one point following an argument, the patient acknowledges that he threatened at least vaguely to "shoot" the pnnzmn-yn-cgn. He acknowledges that this was an inappropriate threat, and he emphasizes that he did not have any plan or intent associated with the threat. But, because of this, the patient believes that his bdqcwmfb-ww-oxh's parents, and possibly others, are actually surveilling him and may have plans to cause him physical harm or . The patient's auditory hallucinations, as well as his delusions, appear to be mood congruent with depression. 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 The goal will be to actively treat the psychosis and the depression. (1) Suicidal ideation: 06/30 - Denies intent to harm self, but admits to hearing commands to kill himself and others - Admitted to a locked inpatient behavioral health unit, on q15 minute safety checks - MNPR until safety can be adequately assessed - Encourage medication initiation/adjustments as indicated - Encourage participation in group and recreational therapies - Gather collateral information from outpatient providers - Suggest family meeting to involve outpatient supports in safety planning - Arrange appropriate aftercare 07/01 - Ongoing; both in that voices are telling him to hurt himself, and in that he is requesting assistance with ending his life - Continue MNPR until response to interventions is observed 07/02 -Today, the patient says that he does not intend to kill himself and although at times wishes that he were , he does not want to be and has decided that he would like to live. - (2) Psychosis: 06/30 - Very wide differential for this patient, as his presentation of psychosis is not typical given his age and lack of prior psychiatric history. - Gather collateral information from patient's family - Encourage use of risperidone 0.5mg q4h prn psychosis/anxiety - Fasting glucose and lipid panel ordered for tomorrow morning - Will attempt to further rule out organic cause of psychosis with additional blood work: B12, folic acid, heavy metals - Will be ideal for patient to have an MRI after discharge, as it is possible the patient's condition is organic in nature. Attempts to have an MRI prior to admission were not successful. 07/01 - Risperidone increased to 1mg POq4h prn - if higher dosage remains ineffective, will likely trial haloperidol to target his ongoing hallucinations - Pt remains agreeable to medications, though does not believe they will be beneficial - Fasting glucose slightly elevated at 103; lipid panel is WNL - Folic acid and B12 are WNL - Heavy metals is pending (3) Alcohol abuse: 06/30 - Pt reports rather significant history of alcohol abuse. States he has not been drinking for several days prior to admission. - Vitals every shift, with close observation for signs of withdrawal - can order AWSS protocol if needed - Pt unable to participate in intervention at this time, can readdress when more appropriate 07/01 - Continue vitals every shift - no significant change to suggest AWSS is necessary at this time Inventory Assets Strengths: willingness for treatment, supportive family Needs: additional medical work-up, gather collateral information, initiation of medication to allow for resolution of hallucinations Risk Factors Assessment Male: Yes : Yes Do You Have Access To A Gun?: Yes (gives convoluted report, but ultimately admits to having access) Health Problems: No Mental Health Diagnoses: No Substance Use Disorders: Yes Previous Attempt: No Family History of Suicide: No Previous Psychiatric Hospitalization: No Hopelessness: No Protective Factors Assessment Congregation Beliefs: No : No Responsible for Young Children: No Employed: No (retired) Stable Relationships: No Supportive Family: Yes Interval History Identifying Information KRISHNA CERVANTES is a 73-year-old M who reports he has been living in a car for the past 2 months, having previously lived with his son and yjomtghw-ah-wvb for the past 5 years. Pt has no known psychiatric history but was admitted on 06/29/19 22:08 on a 201 voluntary commitment for reports of auditory/visual hallucinations, paranoia, disorganization, and inability to care for self. Daughter and son were reportedly concerned and suggested mental health evaluation. Chief Complaint "Surveillance". Review of Systems Sleep Information Total Hours of Sleep: 9 Meal Information Percent Meal Consumed - Breakfast: 0 Percent Meal Consumed - Lunch: 100 Percent Meal Consumed - Dinner: 100 Nutrition Comment: pt. asleep Subjective Subjective Patient was seen & assessed and interval progress reviewed with treatment team. I met with the patient individually in order to assess his current mental status, evaluate his response to treatment, make any necessary changes in the patient's treatment regimen, and address issues and concerns that may arise. The patient was perhaps a little bit more forthcoming today in terms of giving a history. He indicates he has been feeling depressed since his 's unexpected from heart disease approximately 11 years ago. The patient tearfully reports that he and his are very close and that she was "damn near perfect." She reportedly subsequent to open heart surgery, and the patient notes that he feels that he is never quite recovered from the loss. He had been living at the home of his adult son and snxjmdbe-vl-aaj, where he occupied the basement. At at some fairly recent point the patient's son's mother and and eurhvt-nd-ggf also moved into the home and the patient indicated that he began to feel usurped by their presence. He acknowledges that at one point he did verbally threatening to shoot his mynwbfja-qt-hmz's father, but emphasizes that this was an idle threat and was not associated with any actual plan or intent. At around this time, the patient began to "hear things through the ledezma," and noted that the voices that he was hearing where the voices of his dqvpfewa-nx-reo's parents making derogatory and threatening statements targeted at the patient. He noted at that point that he became "aware" that there was what he referred to as ongoing "surveillance" of the patient and his living spaces, and he reports that he believed that he was being monitored with video cameras as well as with sound devices. The patient notes that he reported this concern to his son on several occasions, and felt betrayed when his son refused to believe him and attempted to reassure him that he was imagining things. In frustration, the patient moved out of his son's home and has been mostly living in a car, but he notes that the car belongs to his son and the son has a backa circumstance that has rendered him not only homeless, but without a place to sleep. On questioning, the patient endorses depressed mood, apathy, anergia, initial and intermittent insomnia, anhedonia, and fleeting thoughts of suicide without any plan or intent. He explains, "sometimes I think it would be better to be , but I know that I do not want to and I am not going to." Physical Exam Psychiatric Orientation: oriented x 3 Apperance: appropriately dressed, appropriately groomed and appeared stated age Eye Contact: + fair eye contact Motor Behavior: no abnormal motor movements Speech is soft, slow, and monotonous. He does Affect: + depressed affect and + tearful affect Mood: + depressed mood and + anxious mood Thought Process: goal directed thought process Thought Content: + delusions (The patient remains convinced that his mkclcmsj-qv-gyv's parents, and possibly others are attempting to cause him physical harm and he states that he feels that he is in danger at the present time and does not feel safe because of this. The patient also continues to believe that he is under surveillance here in the hospital and that there are cameras and recording devices had been throughout the behavioral health unit.) Suicidal Thoughts: denies suicidal thoughts The patient says that he has in the past experienced fleeting thoughts of suicide but does not have any plan or. Homicidal Thoughts: denies homicidal thoughts As above, the patient acknowledges that he had once threatened to cause physical harm to his rbioxvit-bo-gkp's father, but says that he was voicing anger rather than any actual homicidal plan or intent. Hallucinations: + auditory hallucinations Patient reports the onset of "voices" that he believes are coming from his zzfvwesp-ml-ihk's parents. The content of the voices is derogatory, belittling, and at times threatening. He notes that he continued to hear the voices after he left his son's home and was living out of his car, and he notes that the voices have persisted here in the hospital. Cognition: recent memory grossly intact, remote memory grossly intact and language grossly intact Estimated Intelligence: average estimated intelligence Insight: + impaired insight The patient does acknowledge that he is depressed. He is also able to voice is feeling of betrayal associated with the fact that in his estimation his son is taking the "side" of his 's parents (i.e., the patient's qgzwsbwa-cq-ldu's parents). He seems to have no insight that the voices that he is hearing are perceptual disturbances, and he seems to be fully convinced that he is, in fact, under surveillance from his wuhjeojg-ee-khl's parents and, possibly others. Judgement: + poor judgement Vital Signs (Past 24 Hours) Last Vital Signs Temp 36.6 C 07/02/19 06:54 Pulse 78 07/02/19 06:55 Resp 16 07/02/19 06:54 BP 117/71 07/02/19 06:55 Pulse Ox 98 06/29/19 22:17 Results & Data Current Inpatient Medications Current Inpatient Medications: Current Inpatient Medications Acetaminophen (Tylenol) 650 mg PO Q4H PRN PRN Reason: Headache or Minor Fever Stop: 07/29/19 21:24 Al Hydrox/Mg Hydrox/Simethicone (Maalox) 30 ml PO Q4H PRN PRN Reason: GI Upset Stop: 07/29/19 21:24 Bismuth Subsalicylate (Kaopectate) 15 ml PO PRN PRN PRN Reason: Loose Stool Stop: 07/29/19 21:24 Haloperidol (Haldol) 5 mg PO Q6H PRN PRN Reason: psychosis/agitation Stop: 07/31/19 14:21 Last Admin: 07/02/19 09:43 Dose: 5 mg Documented by: Hydroxyzine HCl (Vistaril) 25 mg PO Q4H PRN PRN Reason: Anxiety Stop: 07/29/19 21:24 Hydroxyzine HCl (Vistaril) 50 mg PO HSZ PRN PRN Reason: Insomnia Stop: 07/29/19 21:24 Magnesium Hydroxide (Milk Of Magnesia) 30 ml PO DAILY PRN PRN Reason: Heartburn Stop: 07/29/19 21:24 Nicotine Polacrilex (Nicorette 2mg) 1 piece MT PRN PRN PRN Reason: nicotine cravings Stop: 07/30/19 14:12 Last Admin: 06/30/19 14:47 Dose: 1 piece Documented by: Risperidone (Risperdal) 1 mg PO Q4H PRN PRN Reason: Agitation/Psychosis Stop: 07/29/19 21:26 Last Admin: 07/01/19 12:55 Dose: 1 mg Documented by: Sodium Chloride ([place] Nasal) 1 - 2 sprays NA PRN PRN PRN Reason: Nasal Dryness/Congestion Stop: 07/29/19 21:24 Mental Health & Subst Abuse Tx Therapist Name of Therapist: None Advertising Specialist Name of Advertising Specialist: no providers Post Discharge Appointments Primary Care Physician Name Of Family Doctor: [facility] Date of Appointment with PCP: 07/19/19 Time of Appointment with PCP: 2:45pm Provider Appointment Comment: [address] [place] [id number] CPT Code CPT Code [id number] (1) Psychosis Psychosis type: unspecified psychosis type Qualified Code(s): F29 - Unspecified psychosis not due to a substance or known physiological condition
[2019-07-02] MEDS: SERTRALINE HCL 50 MG TABLET PO SCH (15:35)
[2019-07-02] MEDS: ARIPiprazole 5 MG TAB PO SCH (15:35)
[2019-07-03] MEDS: SERTRALINE HCL 50 MG TABLET PO SCH (08:35)
[2019-07-03] MEDS: ARIPiprazole 5 MG TAB PO SCH (08:35)
--- NOTE | 2019-07-03 09:37 | Psychiatric Progress Note ---
Date of Service July 03, 2019 Impression / Recommendations Impression 73-year-old male admitted voluntarily for inpatient psychiatric treatment due to reports of auditory and visual hallucinations and paranoia. Pt demonstrated poor self-care, as he had believed he was kicked out of his son's home and began living in his car. The patient has reported that he believes that the persons who are monitoring him or who have him "under surveillance" are his ikysqgns-bu-guo's parents; i.e., the mother and coqyox-ro-dcz of his son, a man with whom he had been living. Several possibly contributory factors were identified today. The patient reports that he is still grieving his 's which occurred 11 years ago. He tells me that she here at [facility] of heart disease following heart surgery and that he misses her "terribly." Also, but adds some unspecified point the patient's vsjdvtgw-zb-tqw's parents moved into the home that the patient had been sharing with his son and wkqxigii-jc-haz, and the patient is indicated that he felt somewhat usurped or betrayed by this decision. The patient notes that he did not get along well with the ppudyxbp-ab-umj's parents and, at one point following an argument, the patient acknowledges that he threatened at least vaguely to "shoot" the cgbwsx-st-wol. He acknowledges that this was an inappropriate threat, and he emphasizes that he did not have any plan or intent associated with the threat. But, because of this, the patient believes that his oszcxgsp-oy-psg's parents, and possibly others, are actually surveilling him and may have plans to cause him physical harm or . The patient's auditory hallucinations, as well as his delusions, appear to be mood congruent with depression. 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 The goal will be to actively treat the psychosis and the depression. Today, the patient reported no improvement in terms of his auditory hallucinations. He does indicate that his appetite is improved somewhat and, for example, today he ate 50% of his breakfast. Although nursing reports indicate that he slept as many as 10 hours last night, the patient says that he was not sleeping much of the time, even though he had his eyes closed. He notes that he is being distracted very frequently by [employer] [place] and derogatory auditory hallucinations. Thus far, he has tolerated sertraline and aripiprazole well with no noted side effects. Today, we will increase his dose of aripiprazole to a dose of 10 mg a day (with an additional 5 mg dose this evening) and, beginning tomorrow, his dose of sertraline will be increased to 100 mg a day. We have also added trazodone 50 mg at bedtime as a standing dose medication for both depression and for sleep. We are actively encouraging the patient to participate in group and activity therapies, but he declines and tells us that he is "not interested. (1) Suicidal ideation: 06/30 - Denies intent to harm self, but admits to hearing commands to kill himself and others - Admitted to a locked inpatient behavioral health unit, on q15 minute safety checks - MNPR until safety can be adequately assessed - Encourage medication initiation/adjustments as indicated - Encourage participation in group and recreational therapies - Gather collateral information from outpatient providers - Suggest family meeting to involve outpatient supports in safety planning - Arrange appropriate aftercare 07/01 - Ongoing; both in that voices are telling him to hurt himself, and in that he is requesting assistance with ending his life - Continue MNPR until response to interventions is observed 07/02 -The patient reports that he is having no suicidal thoughts. He also focuses today on future plans, such as finding a place to live. He notes that he thinks that his mind will be much relieved once he is able to locate a secure place to live. However, he also reports persistent auditory hallucinations, continues to harbor the belief that he is being persecuted by others and, in particular, by his hvatpczj-fv-vzx's parents, and he remains in need of inpatient psychiatric hospitalization because of his ongoing difficulty maintaining adequate oral intake and performing activities of daily living without the availability of 24- hour psychiatric services at the inpatient level of care. 07/03 -Today, the patient says that he does not intend to kill himself and although at times wishes that he were , he does not want to be and has decided that he would like to live. - (2) Psychosis: 06/30 - Very wide differential for this patient, as his presentation of psychosis is not typical given his age and lack of prior psychiatric history. - Gather collateral information from patient's family - Encourage use of risperidone 0.5mg q4h prn psychosis/anxiety - Fasting glucose and lipid panel ordered for tomorrow morning - Will attempt to further rule out organic cause of psychosis with additional blood work: B12, folic acid, heavy metals - Will be ideal for patient to have an MRI after discharge, as it is possible the patient's condition is organic in nature. Attempts to have an MRI prior to admission were not successful. 07/01 - Risperidone increased to 1mg POq4h prn - if higher dosage remains ineffective, will likely trial haloperidol to target his ongoing hallucinations - Pt remains agreeable to medications, though does not believe they will be beneficial - Fasting glucose slightly elevated at 103; lipid panel is WNL - Folic acid and B12 are WNL - Heavy metals is pending 07/03 -Risperidone was discontinued yesterday in favor of aripiprazole 5 mg. The patient indicated that he tolerated aripiprazole, and notes no side effects from it. However, he continues to demonstrate psychotic features. Specifically, his thought content includes paranoid and persecutory beliefs that he is at risk of being "shot" between the eyes by persons unseen. He also reports that he continues to hear persecutory and depreciating "voices," and indicates that these have not improved. -Today, we will be increasing his dose of aripiprazole to a dose of 10 mg daily to address psychosis and, hopefully, as an adjunct to sertraline. (3) Alcohol abuse: 06/30 - Pt reports rather significant history of alcohol abuse. States he has not been drinking for several days prior to admission. - Vitals every shift, with close observation for signs of withdrawal - can order AWSS protocol if needed - Pt unable to participate in intervention at this time, can readdress when more appropriate 07/01 - Continue vitals every shift - no significant change to suggest AWSS is necessary at this time 07/03 -The patient currently acknowledges that he was at one time a very heavy drinker and consumed whiskey as well as "may be 12 beers" a day. However, he reports that his alcohol consumption has more typically been "may be 2 beers a day, but not even every day." He has shown no signs of alcohol withdrawal. (4) Depression: 07/03 -The patient continues to report depression. His eyes well up when he is talking about his late , a woman who in her 50s approximately 11 years ago of heart disease following open heart surgery. The patient continues to describe his in glowing terms, and tells us that she was "very sweet" and "very kind." He also notes that he is continuing to miss her on a daily basis. He also discusses his feelings about having his fhkcbnqk-ng-xtf insist upon his returning the car that he has been using because it belongs to the son and aejfjvdf-ij-tse. (We do not know if this is true, and the son has given no indication that it is.) -Sertraline was added at 50 mg daily. The patient reports that he has had no trouble tolerating it, and plan will be to increase his dose to 100 mg a day beginning tomorrow, provided that no significant side effects emerge during the balance of today. -As noted above, aripiprazole 5 mg daily was added both for psychosis and, hopefully, as an adjunct for sertraline. The dose of aripiprazole is being increased to 10 mg daily (with an additional 5 mg dose this evening) because of persistent auditory hallucinations and delusional thought content. Present on Admission?: Yes Inventory Assets Strengths: willingness for treatment, supportive family Needs: additional medical work-up, gather collateral information, initiation of medication to allow for resolution of hallucinations Risk Factors Assessment Male: Yes : Yes Do You Have Access To A Gun?: Yes (gives convoluted report, but ultimately admits to having access) Health Problems: No Mental Health Diagnoses: No Substance Use Disorders: Yes Previous Attempt: No Family History of Suicide: No Previous Psychiatric Hospitalization: No Hopelessness: No Protective Factors Assessment Shinto Beliefs: No : No Responsible for Young Children: No Employed: No (retired) Stable Relationships: No Supportive Family: Yes Interval History Identifying Information KRISHNA CERVANTES is a 73-year-old M who reports he has been living in a car for the past 2 months, having previously lived with his son and nnabwzda-ed-rag for the past 5 years. Pt has no known psychiatric history but was admitted on 06/29/19 22:08 on a 201 voluntary commitment for reports of auditory/visual hallucinations, paranoia, disorganization, and inability to care for self. Daughter and son were reportedly concerned and suggested mental health evaluation. Chief Complaint "Still under surveillance". Review of Systems Sleep Information Total Hours of Sleep: 10 Meal Information Percent Meal Consumed - Breakfast: 50 Percent Meal Consumed - Lunch: 75 Percent Meal Consumed - Dinner: 75 Nutrition Comment: pt. asleep Subjective Subjective Patient was seen & assessed and interval progress reviewed with treatment team. I met individually with the patient in order to assess his current mental status, evaluate his response to treatment, coordinate any necessary changes in the patient's treatment regimen with the patient, and address issues and concerns that may arise. The patient begins by telling me today that he is not feeling any better, although he later notes that his appetite has improved. Nursing notes indicate that he has slept as many as 10 hours last night, but the patient tells me that although he had his eyes closed he was not sleeping because he was distracted by auditory hallucinations. We discussed the patient's long-term goals, and the patient notes that he is not interested in returning to his son's home-although the son reportedly has said that he would be welcome to return. The reason given by the patient is that he believes that the source of the "surveillance" is his daughter in law's parents. He also tells me that his jlowskhn-ob-jyb is insisting car that he is currently using be returned to her, which will leave him without transportation. The patient continues to report that he is being observed by cameras and is hearing the voices of unseen persons, such as his dprlbzna-jf-wkj's parents, making comments such as "were going to shoot him right between the eyes." Indicates that he is tolerated sertraline 50 mg well and has not noted in difficulty thus far. He also received his second dose of aripiprazole this morning notes no difficulty in this regard. The patient tells me that he is hoping that he can be discharged by tomorrow, , because he has a dental appointment to have teeth extractions. We explained to him that this would not likely be the case since we do not feel that he is ready for discharge inpatient treatment remains indicated. The family is indicated that they will reschedule his appointment. Much of today's encounter was devoted to processing issues related to the patient's 's 11 years ago. He has difficulty talking about her, but reiterates that she was a "sweet" and "very kind" woman, and he also tells me that his daughter is very much like her mother. He becomes quiet and somewhat tearful when talking about his . Physical Exam Psychiatric Orientation: oriented x 3 Apperance: appropriately dressed and + disheveled Eye Contact: + fair eye contact Motor Behavior: no abnormal motor movements The patient's speech is soft, slow, rarely spontaneous, and somewhat monotonous. Affect: + depressed affect and + tearful affect (When talking about his late .) Mood: + depressed mood and + anxious mood Thought Process: linear/logical thought process and + concrete thought process Thought Content: reality based without delusions Suicidal Thoughts: denies suicidal thoughts Homicidal Thoughts: denies homicidal thoughts Hallucinations: + auditory hallucinations; no visual hallucinations, no tactile hallucinations and no gustatory hallucinations Cognition: recent memory grossly intact, remote memory grossly intact, attention grossly intact and language grossly intact Today, he had some difficulty telling me when and where he and his met. His initial response is, "that was a long time ago. More than 50 years ago." However, when I ask a second time he told me that they had met at a dance and had on [birth year] 22[birth year] 1965. He also noted that at the time of the marriage his was with their daughter who was born in February 1966, but notes that the was not the reason for the marriage. Estimated Intelligence: average estimated intelligence Insight: + poor insight Judgement: + limited judgement Vital Signs (Past 24 Hours) Last Vital Signs Temp 36.6 C 07/03/19 07:03 Pulse 77 07/03/19 07:05 Resp 18 07/03/19 07:03 BP 114/77 07/03/19 07:05 Pulse Ox 98 06/29/19 22:17 Results & Data Laboratory Results Laboratory Results - last 24 hr 07/03/19 08:51 Lyme Disease IgG Ab Pending Lyme Disease IgM Ab Pending Current Inpatient Medications Current Inpatient Medications: Current Inpatient Medications Acetaminophen (Tylenol) 650 mg PO Q4H PRN PRN Reason: Headache or Minor Fever Stop: 07/29/19 21:24 Al Hydrox/Mg Hydrox/Simethicone (Maalox) 30 ml PO Q4H PRN PRN Reason: GI Upset Stop: 07/29/19 21:24 Aripiprazole (Abilify) 5 mg PO ONE ONE Stop: 07/03/19 16:01 Bismuth Subsalicylate (Kaopectate) 15 ml PO PRN PRN PRN Reason: Loose Stool Stop: 07/29/19 21:24 Haloperidol (Haldol) 5 mg PO Q6H PRN PRN Reason: psychosis/agitation Stop: 07/31/19 14:21 Last Admin: 07/02/19 09:43 Dose: 5 mg Documented by: Hydroxyzine HCl (Vistaril) 25 mg PO Q4H PRN PRN Reason: Anxiety Stop: 07/29/19 21:24 Hydroxyzine HCl (Vistaril) 50 mg PO HSZ PRN PRN Reason: Insomnia Stop: 07/29/19 21:24 Magnesium Hydroxide (Milk Of Magnesia) 30 ml PO DAILY PRN PRN Reason: Heartburn Stop: 07/29/19 21:24 Nicotine Polacrilex (Nicorette 2mg) 1 piece MT PRN PRN PRN Reason: nicotine cravings Stop: 07/30/19 14:12 Last Admin: 06/30/19 14:47 Dose: 1 piece Documented by: Sertraline HCl (Zoloft) 100 mg PO QAM CHAD Stop: 08/03/19 08:59 Sodium Chloride ([place] Nasal) 1 - 2 sprays NA PRN PRN PRN Reason: Nasal Dryness/Congestion Stop: 07/29/19 21:24 Mental Health & Subst Abuse Tx Therapist Name of Therapist: None Rail Grinder Name of Rail Grinder: no providers Post Discharge Appointments Primary Care Physician Name Of Family Doctor: [facility] Date of Appointment with PCP: 07/19/19 Time of Appointment with PCP: 2:45pm Provider Appointment Comment: [place] [id number] CPT Code CPT Code 17316 (1) Psychosis Psychosis type: unspecified psychosis type Qualified Code(s): F29 - Unspecified psychosis not due to a substance or known physiological condition :
[2019-07-03 13:06] LABS: Lyme Ab IgG w/WB Rflx Negative (Negative); Lyme Ab IgM w/WB Rflx Negative (Negative)
[2019-07-03 13:20] LABS: Arsenic Blood <3 mcg/L (<23); Collection Sample Venous; Lead Blood 2 mcg/dL (<5); Mercury, blood <4 mcg/L (<=10)
[2019-07-03] MEDS ORDERED: ARIPiprazole 5 MG TAB PO ONE (16:00)
[2019-07-03] MEDS: TRAZODONE HCL 50 MG TAB PO SCH (21:09)
[2019-07-04] MEDS: SERTRALINE HCL 100 MG TABLET PO SCH (08:59)
[2019-07-04] MEDS ORDERED: ARIPiprazole 10 MG TAB PO SCH (09:00)
--- NOTE | 2019-07-04 13:11 | Psychiatric Progress Note ---
Date of Service July 04, 2019 Impression / Recommendations Impression 73-year-old male admitted voluntarily for inpatient psychiatric treatment due to reports of auditory and visual hallucinations and paranoia. Pt demonstrated poor self-care, as he had believed he was kicked out of his son's home and began living in his car. The patient has reported that he believes that the persons who are monitoring him or who have him "under surveillance" are his tqzrxhrb-ml-mja's parents; i.e., the mother and vmykhm-yj-kgn of his son, a man with whom he had been living. Several possibly contributory factors were identified today. The patient reports that he is still grieving his 's which occurred 11 years ago. He tells me that she here at [facility] of heart disease following heart surgery and that he misses her "terribly." Also, but adds some unspecified point the patient's whztgbkj-il-ugv's parents moved into the home that the patient had been sharing with his son and csgmbyya-fq-zeu, and the patient is indicated that he felt somewhat usurped or betrayed by this decision. The patient notes that he did not get along well with the qhchmtgk-rz-ljd's parents and, at one point following an argument, the patient acknowledges that he threatened at least vaguely to "shoot" the qpipho-mc-ftr. He acknowledges that this was an inappropriate threat, and he emphasizes that he did not have any plan or intent associated with the threat. But, because of this, the patient believes that his fkkqgzol-hm-dtk's parents, and possibly others, are actually surveilling him and may have plans to cause him physical harm or . The patient's auditory hallucinations, as well as his delusions, appear to be mood congruent with depression. 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 The goal will be to actively treat the psychosis and the depression. Patient continues to verbalize that there has been no overwhelming improvement in his auditory hallucinations with various medication trials. Aripiprazole was titrated to 10 mg yesterday, with no additional improvements. Patient continues to be withdrawn and verbalizes hopelessness regarding his situation. Patient does appear to be apathetic in regard to medication recommendations. He then states today "give me whatever, maybe one of them will kill me." Prior to entirely discontinuing his aripiprazole, we will plan to offer patient a one- time dose of perphenazine 8 mg. If this medication makes a difference in his auditory hallucinations, we can consider scheduling the medication in place of aripiprazole, which has had no observed benefit thus far. These medication adjustments were reviewed with the patient who is agreeable. We will continue the remainder of his medication regimen as currently scheduled, with likely plan to continue titration of sertraline as tolerated. (1) Suicidal ideation: 06/30 - Denies intent to harm self, but admits to hearing commands to kill himself and others - Admitted to a locked inpatient behavioral health unit, on q15 minute safety checks - MNPR until safety can be adequately assessed - Encourage medication initiation/adjustments as indicated - Encourage participation in group and recreational therapies - Gather collateral information from outpatient providers - Suggest family meeting to involve outpatient supports in safety planning - Arrange appropriate aftercare 07/01 - Ongoing; both in that voices are telling him to hurt himself, and in that he is requesting assistance with ending his life - Continue MNPR until response to interventions is observed 07/02 -The patient reports that he is having no suicidal thoughts. He also focuses today on future plans, such as finding a place to live. He notes that he thinks that his mind will be much relieved once he is able to locate a secure place to live. However, he also reports persistent auditory hallucinations, continues to harbor the belief that he is being persecuted by others and, in particular, by his ytyczghk-ii-jda's parents, and he remains in need of inpatient psychiatric hospitalization because of his ongoing difficulty maintaining adequate oral intake and performing activities of daily living without the availability of 24- hour psychiatric services at the inpatient level of care. 07/03 -Today, the patient says that he does not intend to kill himself and although at times wishes that he were , he does not want to be and has decided that he would like to live. 07/04 - Pt does not verbalize active SI, but at one point in conversation about medication recommendations states "I'll try whatever, maybe one of them will kill me." He endorses ongoing hopelessness. (2) Psychosis: 06/30 - Very wide differential for this patient, as his presentation of psychosis is not typical given his age and lack of prior psychiatric history. - Gather collateral information from patient's family - Encourage use of risperidone 0.5mg q4h prn psychosis/anxiety - Fasting glucose and lipid panel ordered for tomorrow morning - Will attempt to further rule out organic cause of psychosis with additional blood work: B12, folic acid, heavy metals - Will be ideal for patient to have an MRI after discharge, as it is possible the patient's condition is organic in nature. Attempts to have an MRI prior to admission were not successful. 07/01 - Risperidone increased to 1mg POq4h prn - if higher dosage remains ineffective, will likely trial haloperidol to target his ongoing hallucinations - Pt remains agreeable to medications, though does not believe they will be beneficial - Fasting glucose slightly elevated at 103; lipid panel is WNL - Folic acid and B12 are WNL - Heavy metals is pending 07/03 -Risperidone was discontinued yesterday in favor of aripiprazole 5 mg. The patient indicated that he tolerated aripiprazole, and notes no side effects from it. However, he continues to demonstrate psychotic features. Specifically, his thought content includes paranoid and persecutory beliefs that he is at risk of being "shot" between the eyes by persons unseen. He also reports that he continues to hear persecutory and depreciating "voices," and indicates that these have not improved. -Today, we will be increasing his dose of aripiprazole to a dose of 10 mg daily to address psychosis and, hopefully, as an adjunct to sertraline. 07/04 - No profound benefit observed with titration of aripiprazole - patient denies any observed changes at this time. He continues to demonstrate psychotic features. Before entirely adjusting his scheduled medications, we will trial a one-time dose of perphenazine 8mg. If patient observes benefit - can consider 8mg BID dosing, with titration as tolerated. If no profound changes, would suggest titrating aripiprazole to 20mg as a consideration. (3) Alcohol abuse: 06/30 - Pt reports rather significant history of alcohol abuse. States he has not been drinking for several days prior to admission. - Vitals every shift, with close observation for signs of withdrawal - can order AWSS protocol if needed - Pt unable to participate in intervention at this time, can readdress when more appropriate 07/01 - Continue vitals every shift - no significant change to suggest AWSS is necessary at this time 07/03 -The patient currently acknowledges that he was at one time a very heavy drinker and consumed whiskey as well as "may be 12 beers" a day. However, he reports that his alcohol consumption has more typically been "may be 2 beers a day, but not even every day." He has shown no signs of alcohol withdrawal. (4) Depression: 07/03 -The patient continues to report depression. His eyes well up when he is talking about his late , a woman who in her 50s approximately 11 years ago of heart disease following open heart surgery. The patient continues to describe his in glowing terms, and tells us that she was "very sweet" and "very kind." He also notes that he is continuing to miss her on a daily basis. He also discusses his feelings about having his zifyntnc-bh-gpx insist upon his returning the car that he has been using because it belongs to the son and lftgmglm-dh-seg. (We do not know if this is true, and the son has given no indication that it is.) -Sertraline was added at 50 mg daily. The patient reports that he has had no trouble tolerating it, and plan will be to increase his dose to 100 mg a day beginning tomorrow, provided that no significant side effects emerge during the balance of today. -As noted above, aripiprazole 5 mg daily was added both for psychosis and, hopefully, as an adjunct for sertraline. The dose of aripiprazole is being increased to 10 mg daily (with an additional 5 mg dose this evening) because of persistent auditory hallucinations and delusional thought content. Inventory Assets Strengths: willingness for treatment, supportive family Needs: additional medical work-up, gather collateral information, initiation of medication to allow for resolution of hallucinations Risk Factors Assessment Male: Yes : Yes Do You Have Access To A Gun?: Yes (gives convoluted report, but ultimately admits to having access) Health Problems: No Mental Health Diagnoses: No Substance Use Disorders: Yes Previous Attempt: No Family History of Suicide: No Previous Psychiatric Hospitalization: No Hopelessness: No Protective Factors Assessment Mandaeism Beliefs: No : No Responsible for Young Children: No Employed: No (retired) Stable Relationships: No Supportive Family: Yes Interval History Identifying Information KRISHNA CERVANTES is a 73-year-old M who reports he has been living in a car for the past 2 months, having previously lived with his son and uljdzmnv-fs-zfs for the past 5 years. Pt has no known psychiatric history but was admitted on 06/29/19 22:08 on a 201 voluntary commitment for reports of auditory/visual hallucinations, paranoia, disorganization, and inability to care for self. Daughter and son were reportedly concerned and suggested mental health evaluation. Chief Complaint "About the same." Review of Systems Notes Constitutional: denied Cardiovascular: denied Respiratory: denied Gastrointestinal: reports RLQ abdominal pain, ongoing for 1 day with episodic worsening Neurological: denied Psychiatric: denies symptoms other than stated above Total of at least 10 systems reviewed, pertinent positives as above and in HPI. Sleep Information Total Hours of Sleep: 13 Meal Information Percent Meal Consumed - Breakfast: 50 Percent Meal Consumed - Lunch: 75 Percent Meal Consumed - Dinner: 100 Nutrition Comment: pt. asleep Subjective Subjective Patient was seen & assessed and interval progress reviewed with treatment team. Staff reports the patient continues to express delusional beliefs regarding being monitored and observed. Pt does not report a significant difference in the presence of his auditory hallucinations despite several medication trials. Pt's Lyme serology was negative and heavy metal testing was unremarkable. Pt was seen today to assess progress since admission. He is observed to be laying in bed, which has been his condition for most of the day. He states he has not noticed a difference in his auditory hallucinations, and continues to believe that medications will not be helpful. He states - "I've told you what you have to do. You have to find out who is doing this and figure out where they are. Medication is not going to help." Pt was informed that even if he does not believe the medications will help with the voices, that they may help with the distress he has been feeling. Pt was asked if he would be willing for adjustments to his medications - either titration of aripiprazole or trial of another agent. After discussing options, the patient states "I'll take wha tever, maybe one of them will kill me." He continues to appear very hopeless and depressed. He also reports abdominal pain, which he states is not unusual for him. Pain is located in his right lower quadrant, and is episodic. He states at its worst it is an 8/10, at its best a 1/10. Pt states this plan often lasts several days and then resolves on its own. Pt was offered to trial Tylenol or Maalox for the pain, which he declines at this time. Pt states, "I went from taking no medications to taking so much." This provider attempted to reassure the patient the he will only be discharged on medications that are effective. He states, "why bother, I'm not going to take anything when I leave." Pt was encouraged to continue medications, especially after we are able to find an effective medication to target his present concerns. He continues to report that medications will not help - "you have to find out who is behind this." Pt denies other needs or concerns at this time. Physical Exam Psychiatric Orientation: alert, oriented x 3 and cooperative (Superficially) Apperance: appropriately dressed (Casually, in T-shirt and jeans), appropriately groomed and appeared stated age Eye Contact: + poor eye contact (Only brief moments of direct eye contact) Motor Behavior: no abnormal motor movements (Observed while laying in bed) Speech: normal rate/rhythm/volume of speech (Brief responses to questions, nonspontaneous) Affect: + depressed affect Mood: + depressed mood ("There is no hope, nothing will work") Thought Process: + concrete thought process; + thought process not linear or logical Thought Content: + paranoid, + delusions, + persecution, + hopelessness and + worthlessness Suicidal Thoughts: + reports suicidal thoughts Ongoing passive suicidal ideation, but somewhat active wishes. Patient makes comments regularly suggesting his desire to no longer be alive Hallucinations: + auditory hallucinations; no visual hallucinations Cognition: attention grossly intact and language grossly intact Estimated Intelligence: average estimated intelligence Insight: + poor insight Judgement: + limited judgement Vital Signs (Past 24 Hours) Last Vital Signs Temp 36.7 C 07/04/19 06:53 Pulse 88 07/04/19 06:54 Resp 18 07/04/19 06:53 BP 107/70 07/04/19 06:54 Pulse Ox 98 06/29/19 22:17 Gastrointestinal (Abdomen) Inspection/Auscultation: abdomen normal to inspection and normal bowel sounds; abdomen not distended and no visible pulsation Percussion/Palpation: + abdomen tender (in right lower quadrant, elicited only mildly with deep palpation) and abdomen soft; no guarding, no abdominal mass and abdomen not firm Results & Data Laboratory Results Laboratory Results - last 24 hr 07/01/19 07:54 Heavy Metal Source Venous Arsenic <3 Lead 2 Mercury <4 Current Inpatient Medications Current Inpatient Medications: Current Inpatient Medications Acetaminophen (Tylenol) 650 mg PO Q4H PRN PRN Reason: Headache or Minor Fever Stop: 07/29/19 21:24 Al Hydrox/Mg Hydrox/Simethicone (Maalox) 30 ml PO Q4H PRN PRN Reason: GI Upset Stop: 07/29/19 21:24 A[facility]) [facility] [place] Stop: 08/03/19 08:59 Last Admin: 07/04/19 08:59 Dose: 10 mg Documented by: Bismuth Subsalicylate (Kaopectate) 15 ml PO PRN PRN PRN Reason: Loose Stool Stop: 07/29/19 21:24 Haloperidol (Haldol) 5 mg PO Q6H PRN PRN Reason: psychosis/agitation Stop: 07/31/19 14:21 Last Admin: 07/02/19 09:43 Dose: 5 mg Documented by: Hydroxyzine HCl (Vistaril) 25 mg PO Q4H PRN PRN Reason: Anxiety Stop: 07/29/19 21:24 Hydroxyzine HCl (Vistaril) 50 mg PO HSZ PRN PRN Reason: Insomnia Stop: 07/29/19 21:24 Magnesium Hydroxide (Milk Of Magnesia) 30 ml PO DAILY PRN PRN Reason: Heartburn Stop: 07/29/19 21:24 Nicotine Polacrilex (Nicorette 2mg) 1 piece MT PRN PRN PRN Reason: nicotine cravings Stop: 07/30/19 14:12 Last Admin: 06/30/19 14:47 Dose: 1 piece Documented by: Sertraline HCl (Zoloft) 100 [facility] [place] Stop: 08/03/19 08:59 Last Admin: 07/04/19 08:59 Dose: 100 mg Documented by: Sodium Chloride (Calvert Nasal) 1 - 2 sprays NA PRN PRN PRN Reason: Nasal Dryness/Congestion Stop: 07/29/19 21:24 Trazodone HCl (Desyrel) 50 mg PO HS [facility]AD Stop: 08/02/19 21:59 Last Admin: 07/03/19 21:09 Dose: 50 mg Documented by: Mental Health & Subst Abuse Tx Therapist Name of Therapist: None Economics Instructor Name of Economics Instructor: no providers Post Discharge Appointments Primary Care Physician Name Of Family Doctor: [facility] Date of Appointment with PCP: 07/19/19 Time of Appointment with PCP: 2:45pm Provider Appointment Comment: [facility] [place] [id number] CPT Code CPT Code 87980 (1) Psychosis Psychosis type: unspecified psychosis type Qualified Code(s): F29 - Unspecified psychosis not due to a substance or known physiological condition
[2019-07-04] MEDS ORDERED: PERPHENAZINE 2 MG TABLET PO ONE (14:33)
[2019-07-04] MEDS: TRAZODONE HCL 50 MG TAB PO SCH (21:09)
[2019-07-04] MEDS: PERPHENAZINE 2 MG TABLET PO SCH (21:09)
[2019-07-05] MEDS: SERTRALINE HCL 100 MG TABLET PO SCH (09:22)
[2019-07-05] MEDS: PERPHENAZINE 2 MG TABLET PO SCH (09:22)
--- NOTE | 2019-07-05 12:37 | Psychiatric Progress Note ---
Date of Service July 05, 2019 Impression / Recommendations Impression 73-year-old male admitted voluntarily for inpatient psychiatric treatment due to reports of auditory and visual hallucinations and paranoia. Pt demonstrated poor self-care, as he had believed he was kicked out of his son's home and began living in his car. The patient has reported that he believes that the persons who are monitoring him or who have him "under surveillance" are his fvhpvnkd-cv-jui's parents; i.e., the mother and jodayh-ig-qhp of his son, a man with whom he had been living. Several possibly contributory factors were identified today. The patient reports that he is still grieving his 's which occurred 11 years ago. He tells me that she here at [facility] of heart disease following heart surgery and that he misses her "terribly." Also, but adds some unspecified point the patient's sfnzvukc-wz-day's parents moved into the home that the patient had been sharing with his son and uphuvpgi-js-ecq, and the patient is indicated that he felt somewhat usurped or betrayed by this decision. The patient notes that he did not get along well with the bqyydewz-gl-eyq's parents and, at one point following an argument, the patient acknowledges that he threatened at least vaguely to "shoot" the ccrcgr-xx-zjj. He acknowledges that this was an inappropriate threat, and he emphasizes that he did not have any plan or intent associated with the threat. But, because of this, the patient believes that his ffpcfnjd-mm-shu's parents, and possibly others, are actually surveilling him and may have plans to cause him physical harm or . The patient's auditory hallucinations, as well as his delusions, appear to be mood congruent with depression. 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 The goal will be to actively treat the psychosis and the depression. This morning, the patient was refusing to take medications to use to believes that they will not make these individuals stop monitoring him. Patient also verbalized that he is not interested in taking multiple pills (a specific concern as jeremyazine is only formulary and 2 mg tablets). As the alternative this patient refusing to take medications that will likely benefit his symptoms of concern, this provider encouraged returning to a medication that can be given with fewer tablets. Pt is agreeable to retrail of aripiprazole at higher dosage, with continued titration. While patient continues to believe that medication could not help his condition, he is agreeable to trying the medications recommended. (1) Suicidal ideation: 06/30 - Denies intent to harm self, but admits to hearing commands to kill himself and others - Admitted to a locked inpatient behavioral health unit, on q15 minute safety checks - MNPR until safety can be adequately assessed - Encourage medication initiation/adjustments as indicated - Encourage participation in group and recreational therapies - Gather collateral information from outpatient providers - Suggest family meeting to involve outpatient supports in safety planning - Arrange appropriate aftercare 07/01 - Ongoing; both in that voices are telling him to hurt himself, and in that he is requesting assistance with ending his life - Continue MNPR until response to interventions is observed 07/02 -The patient reports that he is having no suicidal thoughts. He also focuses today on future plans, such as finding a place to live. He notes that he thinks that his mind will be much relieved once he is able to locate a secure place to live. However, he also reports persistent auditory hallucinations, continues to harbor the belief that he is being persecuted by others and, in particular, by his ejqcpxqp-ja-fyh's parents, and he remains in need of inpatient psychiatric hospitalization because of his ongoing difficulty maintaining adequate oral intake and performing activities of daily living without the availability of 24- hour psychiatric services at the inpatient level of care. 07/03 -Today, the patient says that he does not intend to kill himself and although at times wishes that he were , he does not want to be and has decided that he would like to live. 07/04 - Pt does not verbalize active SI, but at one point in conversation about medication recommendations states "I'll try whatever, maybe one of them will kill me." He endorses ongoing hopelessness. (2) Psychosis: 06/30 - Very wide differential for this patient, as his presentation of psychosis is not typical given his age and lack of prior psychiatric history. - Gather collateral information from patient's family - Encourage use of risperidone 0.5mg q4h prn psychosis/anxiety - Fasting glucose and lipid panel ordered for tomorrow morning - Will attempt to further rule out organic cause of psychosis with additional blood work: B12, folic acid, heavy metals - Will be ideal for patient to have an MRI after discharge, as it is possible the patient's condition is organic in nature. Attempts to have an MRI prior to admission were not successful. 07/01 - Risperidone increased to 1mg POq4h prn - if higher dosage remains ineffective, will likely trial haloperidol to target his ongoing hallucinations - Pt remains agreeable to medications, though does not believe they will be beneficial - Fasting glucose slightly elevated at 103; lipid panel is WNL - Folic acid and B12 are WNL - Heavy metals is pending 07/03 -Risperidone was discontinued yesterday in favor of aripiprazole 5 mg. The patient indicated that he tolerated aripiprazole, and notes no side effects from it. However, he continues to demonstrate psychotic features. Specifically, his thought content includes paranoid and persecutory beliefs that he is at risk of being "shot" between the eyes by persons unseen. He also reports that he continues to hear persecutory and depreciating "voices," and indicates that these have not improved. -Today, we will be increasing his dose of aripiprazole to a dose of 10 mg daily to address psychosis and, hopefully, as an adjunct to sertraline. 07/04 - No profound benefit observed with titration of aripiprazole - patient denies any observed changes at this time. He continues to demonstrate psychotic features. Before entirely adjusting his scheduled medications, we will trial a one-time dose of perphenazine 8mg. If patient observes benefit - can consider 8mg BID dosing, with titration as tolerated. If no profound changes, would suggest titrating aripiprazole to 20mg as a consideration. 07/05 - Pt had refused his medications this morning, and reported perphenazine 8mg last evening was not overly helpful. Although it would be suggested that his dose of perphenazine be titrated, the patient is unwilling to continue the medication because it is "too many pills". As the alternative is patient likely discontinuing medications even without relief of symptoms - this provider is suggesting return to aripiprazole with titration of the dose to 15mg today. Can continue titration of the medication as tolerated until his symptoms improve (3) Alcohol abuse: 06/30 - Pt reports rather significant history of alcohol abuse. States he has not been drinking for several days prior to admission. - Vitals every shift, with close observation for signs of withdrawal - can order AWSS protocol if needed - Pt unable to participate in intervention at this time, can readdress when more appropriate 07/01 - Continue vitals every shift - no significant change to suggest AWSS is necessary at this time 07/03 -The patient currently acknowledges that he was at one time a very heavy drinker and consumed whiskey as well as "may be 12 beers" a day. However, he reports that his alcohol consumption has more typically been "may be 2 beers a day, but not even every day." He has shown no signs of alcohol withdrawal. (4) Depression: 07/03 -The patient continues to report depression. His eyes well up when he is talking about his late , a woman who in her 50s approximately 11 years ago of heart disease following open heart surgery. The patient continues to describe his in glowing terms, and tells us that she was "very sweet" and "very kind." He also notes that he is continuing to miss her on a daily basis. He also discusses his feelings about having his ahnatjdw-ft-ajm insist upon his returning the car that he has been using because it belongs to the son and zynowgkl-bd-eum. (We do not know if this is true, and the son has given no indication that it is.) -Sertraline was added at 50 mg daily. The patient reports that he has had no trouble tolerating it, and plan will be to increase his dose to 100 mg a day beginning tomorrow, provided that no significant side effects emerge during the balance of today. -As noted above, aripiprazole 5 mg daily was added both for psychosis and, hopefully, as an adjunct for sertraline. The dose of aripiprazole is being increased to 10 mg daily (with an additional 5 mg dose this evening) because of persistent auditory hallucinations and delusional thought content. 07/05 - Continue medication regimen as above - as focus of today's conversation was adjusting his antipsychotic medication - we did not discuss adjustments to his dose of sertraline. Consider titration of the medication to 150mg if patient is willing to continue. Inventory Assets Strengths: willingness for treatment, supportive family Needs: additional medical work-up, gather collateral information, initiation of medication to allow for resolution of hallucinations Risk Factors Assessment Male: Yes : Yes Do You Have Access To A Gun?: Yes (gives convoluted report, but ultimately admits to having access) Health Problems: No Mental Health Diagnoses: No Substance Use Disorders: Yes Previous Attempt: No Family History of Suicide: No Previous Psychiatric Hospitalization: No Hopelessness: No Protective Factors Assessment Buddhist Beliefs: No : No Responsible for Young Children: No Employed: No (retired) Stable Relationships: No Supportive Family: Yes Interval History Identifying Information KRISHNA CERVANTES is a 73-year-old M who reports he has been living in a car for the past 2 months, having previously lived with his son and ywotlyrq-af-ngc for the past 5 years. Pt has no known psychiatric history but was admitted on 06/29/19 22:08 on a 201 voluntary commitment for reports of auditory/visual hallucinations, paranoia, disorganization, and inability to care for self. Daughter and son were reportedly concerned and suggested mental health evalua tion. Chief Complaint "Oh, about the same as before." Review of Systems Notes Constitutional: denied Cardiovascular: denied Respiratory: denied Gastrointestinal: reports episodic right lower abdominal/groin pain - improved from yesterday Neurological: denied Psychiatric: denies symptoms other than stated above Total of at least 10 systems reviewed, pertinent positives as above and in HPI. Sleep Information Total Hours of Sleep: 7.5 Meal Information Percent Meal Consumed - Breakfast: 50 Percent Meal Consumed - Lunch: 75 Percent Meal Consumed - Dinner: 90 Nutrition Comment: pt. asleep Subjective Subjective Patient was seen & assessed and interval progress reviewed with nursing and social work. Staff reports that the patient continues to be withdrawn to his room. It is reported that he may have noticed a small benefit from trial of perphenazine yesterday afternoon, but did not notice improvement with evening dose. He is not refusing to take his morning medications, per report. Pt did accept a visit from a friend yesterday evening. Pt was seen today to assess progress since admission. Pt states that he is "about the same as before." He states he does not want to take medications, as he continues to believe the solution to his problem is finding the people who are monitoring him. Pt admits that it is the voices of his wsvyxacz-gn-uqm's family that he hears; however, states they have "hired people to monitor me", explaining why he wants us to find these people or "the source." Pt then states, "or you can call them and ask them about it." This provider asked what his iqvbafnu-kf-fib's family would say if we called, and he states, "I don't know, you'll have to call and see." When patient was asked what would happen if the family said they weren't doing this to him and didn't know what was happening - he states, "they would lie to you like that." Pt continues to state that he has never had prior episodes of auditory hallucinations - and states, "so why would I take medicine now." This provider attempted to explain to the patient that individuals who do hear voices for most of their lives often benefit from these medications - and we think they could be helpful in his situation by translation. Pt continues to be resistant to this idea. Pt denies SI, but states the voices do continue to tell him they plan to "shoot me between the eyes." Pt denies needs at this time. Physical Exam Psychiatric Orientation: alert, oriented x 3 and + guarded Apperance: appropriately dressed (casually, in t-shirt and jeans) and appropriately groomed Eye Contact: + fair eye contact Motor Behavior: no abnormal motor movements (observed while laying in bed ) Speech: normal rate/rhythm/volume of speech (non-spontaneous, limite participation in conversation) Affect: + depressed affect Mood: + depressed mood and + anxious mood Thought Process: linear/logical thought process and + concrete thought process Thought Content: + paranoid ( believing he is being monitored ), + delusions and + hopelessness Suicidal Thoughts: denies suicidal thoughts and denies suicidal intent Homicidal Thoughts: denies homicidal thoughts Hallucinations: + auditory hallucinations (ongoing voices of D-I-L's family telling him to hurt himself); no visual hallucinations and no tactile hallucinations Cognition: attention grossly intact and language grossly intact Estimated Intelligence: consistent with education level Insight: + poor insight Judgement: + impaired judgement Vital Signs (Past 24 Hours) Last Vital Signs Temp 36.7 C 07/05/19 06:00 Pulse 88 07/05/19 06:46 Resp 17 07/05/19 06:00 BP 128/70 07/05/19 06:46 Pulse Ox 98 06/29/19 22:17 Results & Data Current Inpatient Medications Current Inpatient Medications: Current Inpatient Medications Acetaminophen (Tylenol) 650 mg PO Q4H PRN PRN Reason: Headache or Minor Fever Stop: 07/29/19 21:24 Al Hydrox/Mg Hydrox/Simethicone (Maalox) 30 ml PO Q4H PRN PRN Reason: GI Upset Stop: 07/29/19 21:24 Aripiprazole (Abilify) 15 mg PO QAM CHAD Stop: 08/04/19 12:44 Bismuth Subsalicylate (Kaopectate) 15 ml PO PRN PRN PRN Reason: Loose Stool Stop: 07/29/19 21:24 Haloperidol (Haldol) 5 mg PO Q6H PRN PRN Reason: psychosis/agitation Stop: 07/31/19 14:21 Last Admin: 07/02/19 09:43 Dose: 5 mg Documented by: Hydroxyzine HCl (Vistaril) 25 mg PO Q4H PRN PRN Reason: Anxiety Stop: 07/29/19 21:24 Hydroxyzine HCl (Vistaril) 50 mg PO HSZ PRN PRN Reason: Insomnia Stop: 07/29/19 21:24 Magnesium Hydroxide (Milk Of Magnesia) 30 ml PO DAILY PRN PRN Reason: Heartburn Stop: 07/29/19 21:24 Nicotine Polacrilex (Nicorette 2mg) 1 piece MT PRN PRN PRN Reason: nicotine cravings Stop: 07/30/19 14:12 Last Admin: 06/30/19 14:47 Dose: 1 piece Documented by: Sertraline HCl (Zoloft) 100 mg PO QAM CHAD Stop: 08/03/19 08:59 Last Admin: 07/05/19 09:22 Dose: Not Given Documented by: Sodium Chloride (Mustang Nasal) 1 - 2 sprays NA PRN PRN PRN Reason: Nasal Dryness/Congestion Stop: 07/29/19 21:24 Trazodone HCl (Desyrel) 50 mg PO HS CHAD Stop: 08/02/19 21:59 Last Admin: 07/04/19 21:09 Dose: 50 mg Documented by: Mental Health & Subst Abuse Tx Therapist Name of Therapist: None Fountain Operator Name of Fountain Operator: no providers Post Discharge Appointments Primary Care Physician Name Of Family Doctor: CATY Crawford [facility] Date of Appointment with PCP: 07/19/19 Time of Appointment with PCP: 2:45pm Provider Appointment Comment: [address] [place] [id number] CPT Code CPT Code 94143 (1) Psychosis Psychosis type: unspecified psychosis type Qualified Code(s): F29 - Unspecified psychosis not due to a substance or known physiological condition
[2019-07-05] MEDS: ARIPiprazole 10 MG TAB PO SCH (13:46)
[2019-07-05] MEDS: TRAZODONE HCL 50 MG TAB PO SCH (21:02)
[2019-07-06] MEDS: SERTRALINE HCL 100 MG TABLET PO SCH (10:32)
[2019-07-06] MEDS: ARIPiprazole 10 MG TAB PO SCH (10:32)
[2019-07-06] MEDS ORDERED: clonazePAM 0.5 MG TAB PO STA (16:48)
--- NOTE | 2019-07-06 17:16 | Psychiatric Progress Note ---
Date of Service July 06, 2019 Impression / Recommendations Impression 73-year-old male admitted voluntarily for inpatient psychiatric treatment due to reports of auditory and visual hallucinations and paranoia. Pt demonstrated poor self-care, as he had believed he was kicked out of his son's home and began living in his car. The patient has reported that he believes that the persons who are monitoring him or who have him "under surveillance" are his kzfyzces-ba-tay's parents; i.e., the mother and zvwfgt-gl-xdk of his son, a man with whom he had been living. Several possibly contributory factors were identified today. The patient reports that he is still grieving his 's which occurred 11 years ago. He tells me that she here at [facility] of heart disease following heart surgery and that he misses her "terribly." Also, but adds some unspecified point the patient's zcdneecl-jb-nwt's parents moved into the home that the patient had been sharing with his son and xscotxap-vx-fev, and the patient is indicated that he felt somewhat usurped or betrayed by this decision. The patient notes that he did not get along well with the yqmlurds-jq-zgp's parents and, at one point following an argument, the patient acknowledges that he threatened at least vaguely to "shoot" the hdpbxt-fs-gpk. He acknowledges that this was an inappropriate threat, and he emphasizes that he did not have any plan or intent associated with the threat. But, because of this, the patient believes that his qjespstw-ld-ulh's parents, and possibly others, are actually surveilling him and may have plans to cause him physical harm or . The patient's auditory hallucinations, as well as his delusions, appear to be mood congruent with depression. 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 The goal will be to actively treat the psychosis and the depression. The patient had had difficulty taking perphenazine because the unit dose from the pharmacy came as 2 mg tablets and the patient, who is somewhat concrete, had difficulty understanding that four 2 mg tablets of the same is one 8 mg tablet. Accordingly, we switched back to aripiprazole 15 mg a day. The patient may be responding slightly. Today, he is at least able to question whether some of what he has heard through the "surveillance voices" are real, or whether it is is just part of a "trick." What seems clear as the patient's associated anxious distress is interfering with his ability to function and he spends much of his time fretting because of the messages that he is receiving. Today, I am incr easing his dose of aripiprazole from 15 mg a day to 20 mg a day. I am giving him a test dose of clonazepam 0.5 mg as a way of judging whether a benzodiazepine will be helpful in managing the patient's anxiety and, possibly, and allowing him to stop focusing quite so heavily on the distress she is experiencing in association with messages that he receives through auditory hallucinations. The patient's complaint of right lower quadrant pain does not include rebound tenderness and is associated with essentially doing "sit ups" in bed periods more specifically, he notes that the pain arises when he sits up from a recumbent position. The pain does not persist when he is not putting strain on his abdominal muscles. He also tells us that he has had similar pain "off and on" for a number of years and that, in fact, the pain often is on the other side of his abdomen. I suggested that we consider a CAT scan to rule out any other problem, such as kidney stone or appendicitis, but the patient tells me that he is not concerned about it and would prefer not to pursue it at this time. (1) Suicidal ideation: 06/30 - Denies intent to harm self, but admits to hearing commands to kill himself and others - Admitted to a locked inpatient behavioral health unit, on q15 minute safety checks - MNPR until safety can be adequately assessed - Encourage medication initiation/adjustments as indicated - Encourage participation in group and recreational therapies - Gather collateral information from outpatient providers - Suggest family meeting to involve outpatient supports in safety planning - Arrange appropriate aftercare 07/01 - Ongoing; both in that voices are telling him to hurt himself, and in that he is requesting assistance with ending his life - Continue MNPR until response to interventions is observed 07/02 -The patient reports that he is having no suicidal thoughts. He also focuses today on future plans, such as finding a place to live. He notes that he thinks that his mind will be much relieved once he is able to locate a secure place to live. However, he also reports persistent auditory hallucinations, continues to harbor the belief that he is being persecuted by others and, in particular, by his fmisoslw-pq-zmp's parents, and he remains in need of inpatient psychiatric hospitalization because of his ongoing difficulty maintaining adequate oral intake and performing activities of daily living without the availability of 24- hour psychiatric services at the inpatient level of care. 07/03 -Today, the patient says that he does not intend to kill himself and although at times wishes that he were , he does not want to be and has decided that he would like to live. 07/04 - Pt does not verbalize active SI, but at one point in conversation about medication recommendations states "I'll try whatever, maybe one of them will kill me." He endorses ongoing hopelessness. 07/06 -The patient reports that he is not having any suicidal thoughts, although he acknowledges that he is very distressed by "all of the things that are going on." -The patient's son has confirmed that the guns that the patient had in his room have been locked in a safe, and the patient does not. (2) Psychosis: 06/30 - Very wide differential for this patient, as his presentation of psychosis is not typical given his age and lack of prior psychiatric history. - Gather collateral information from patient's family - Encourage use of risperidone 0.5mg q4h prn psychosis/anxiety - Fasting glucose and lipid panel ordered for tomorrow morning - Will attempt to further rule out organic cause of psychosis with additional blood work: B12, folic acid, heavy metals - Will be ideal for patient to have an MRI after discharge, as it is possible the patient's condition is organic in nature. Attempts to have an MRI prior to admission were not successful. 07/01 - Risperidone increased to 1mg POq4h prn - if higher dosage remains ineffective, will likely trial haloperidol to target his ongoing hallucinations - Pt remains agreeable to medications, though does not believe they will be beneficial - Fasting glucose slightly elevated at 103; lipid panel is WNL - Folic acid and B12 are WNL - Heavy metals is pending 07/03 -Risperidone was discontinued yesterday in favor of aripiprazole 5 mg. The patient indicated that he tolerated aripiprazole, and notes no side effects from it. However, he continues to demonstrate psychotic features. Specifically, his thought content includes paranoid and persecutory beliefs that he is at risk of being "shot" between the eyes by persons unseen. He also reports that he continues to hear persecutory and depreciating "voices," and indicates that these have not improved. -Today, we will be increasing his dose of aripiprazole to a dose of 10 mg daily to address psychosis and, hopefully, as an adjunct to sertraline. 07/04 - No profound benefit observed with titration of aripiprazole - patient denies any observed changes at this time. He continues to demonstrate psychotic features. Before entirely adjusting his scheduled medications, we will trial a one-time dose of perphenazine 8mg. If patient observes benefit - can consider 8mg BID dosing, with titration as tolerated. If no profound changes, would suggest titrating aripiprazole to 20mg as a consideration. 07/05 - Pt had refused his medications this morning, and reported perphenazine 8mg last evening was not overly helpful. Although it would be suggested that his dose of perphenazine be titrated, the patient is unwilling to continue the medication because it is "too many pills". As the alternative is patient likely discontinuing medications even without relief of symptoms - this provider is suggesting return to aripiprazole with titration of the dose to 15mg today. Can continue titration of the medication as tolerated until his symptoms improve 07/06 -We have discontinued perphenazine. It is not clear if perphenazine would or would not of help to him, but because it only comes from the pharmacy currently and 2 mg strength, and because the patient verbalizes distressed about the number of pills he is having to take (within the context of the fact that he generally does not take any medications at all) and we have decided to discontinue perphenazine and return to aripiprazole - -The patient's dose of aripiprazole is being increased to a dose of 20 mg a day. The patient was advised accordingly. -At least part of the issue in this case is that the patient's psychosis tends to lead to worsening anxiety, and there appears to be a " loop" of sorts between anxious distress and the intensity of the auditory hallucinations. Accordingly, we are offering the patient a trial of clonazepam 0.5 mg today to see if this might help reduce his anxiety and, therefore, reduce the degree to which he focuses on the distress associated with the content of the auditory hallucinations that he is continuing to experience.. (3) Alcohol abuse: 06/30 - Pt reports rather significant history of alcohol abuse. States he has not been drinking for several days prior to admission. - Vitals every shift, with close observation for signs of withdrawal - can order AWSS protocol if needed - Pt unable to participate in intervention at this time, can readdress when more appropriate 07/01 - Continue vitals every shift - no significant change to suggest AWSS is necessary at this time 07/03 -The patient currently acknowledges that he was at one time a very heavy drinker and consumed whiskey as well as "may be 12 beers" a day. However, he reports that his alcohol consumption has more typically been "may be 2 beers a day, but not even every day." He has shown no signs of alcohol withdrawal. 07/06 -There appears to possibly be discrepancy between what the patient reports as his typical alcohol consumption amount and what his son suggests may be as alcohol usage pattern. The son acknowledges that he is not sure that he is aware of his father's drinking habits, and suggests that he that his father sometimes will talk about "going down to the store" and returning him with beer. According to 1 report, the patient may be drinking as much as 30 beers over the course of a day or 2. When we talk to the patient about this, he laughed and assured us that he not only could not drink that many beers if he tried to, he could not afford to buy that many beers. He insists that he typically drinks 2, 3, or maybe 4 beers a day, but not every day. He acknowledges that on occasion he may drink a 6 pack, but he says he does not drink more than that and has not consumed alcohol in greater amounts for a number of years. (4) Depression: 07/03 -The patient continues to report depression. His eyes well up when he is talking about his late , a woman who in her 50s approximately 11 years ago of heart disease following open heart surgery. The patient continues to describe his in glowing terms, and tells us that she was "very sweet" and "very kind." He also notes that he is continuing to miss her on a daily basis. He also discusses his feelings about having his iuahneuk-vi-ifh insist upon his returning the car that he has been using because it belongs to the son and pbmduoug-jx-fuh. (We do not know if this is true, and the son has given no indication that it is.) -Sertraline was added at 50 mg daily. The patient reports that he has had no trouble tolerating it, and plan will be to increase his dose to 100 mg a day beginning tomorrow, provided that no significant side effects emerge during the balance of today. -As noted above, aripiprazole 5 mg daily was added both for psychosis and, hopefully, as an adjunct for sertraline. The dose of aripiprazole is being increased to 10 mg daily (with an additional 5 mg dose this evening) because of persistent auditory hallucinations and delusional thought content. 07/05 - Continue medication regimen as above - as focus of today's conversation was adjusting his antipsychotic medication - we did not discuss adjustments to his dose of sertraline. Consider titration of the medication to 150mg if patient is willing to continue. 07/06 -We are increasing his dose of sertraline from 100 mg a day to 150 mg a day. His working diagnosis remains major depressive disorder, severe, with psychotic features. The content of his hallucinations is mood congruent with depression. He endorses feelings of depression, and are hope is that he will respond favorably to antidepressant medications so that his psychotic features will resolve. -We will entertain the possibility of trying a different antidepressant medication if the patient continues to do not show much favorable response to sertraline. Inventory Assets Strengths: willingness for treatment, supportive family Needs: additional medical work-up, gather collateral information, initiation of medication to allow for resolution of hallucinations Risk Factors Assessment Male: Yes : Yes Do You Have Access To A Gun?: Yes (gives convoluted report, but ultimately admits to having access) Health Problems: No Mental Health Diagnoses: No Substance Use Disorders: Yes Previous Attempt: No Family History of Suicide: No Previous Psychiatric Hospitalization: No Hopelessness: No Protective Factors Assessment Confucianism Beliefs: No : No Responsible for Young Children: No Employed: No (retired) Stable Relationships: No Supportive Family: Yes Interval History Identifying Information KRISHNA CERVANTES is a 73-year-old M who reports he has been living in a car for the past 2 months, having previously lived with his son and mmecrrka-ps-tiv for the past 5 years. Pt has no known psychiatric history but was admitted on 06/29/19 22:08 on a 201 voluntary commitment for reports of auditory/visual hallucinations, paranoia, disorganization, and inability to care for self. Daughter and son were reportedly concerned and suggested mental health evaluation. Chief Complaint "You would be depressed too if you are under surveillance." Review of Systems Sleep Information Total Hours of Sleep: 8 Meal Information Percent Meal Consumed - Breakfast: 50 Percent Meal Consumed - Lunch: 100 Percent Meal Consumed - Dinner: 75 Nutrition Comment: per meal record Subjective Subjective Patient was seen & assessed and interval progress reviewed with treatment team. I met individually with the patient in order to assess his current mental status, evaluate his response to treatment, make any necessary changes in his treatment regimen and coordination with the patient, and address issues and concerns that may arise. Nursing staff have been concerned today because the patient has been complaining of right lower quadrant pain. I discussed this with him today, and he tells me that this is not a new problem for him and that he has for a number of years experienced episodic abdominal pain, sometimes on the right side, but more commonly on the left. He tells me the pain is only apparent when he strains or sits up, but he does not experience the pain at rest, such as when he is sitting or walking. "It just hurts if I try to sit up in bed. It is like a pulled muscle." The patient talked about a recent family session with his son, and he acknowledges that he feels angry at his son leaving him regarding the issue of "surveillance." He has clearly incorporated his eddbithd-oi-ogq into the delusional system, and today he was able to tell me that while the car that he drives is technically in his son's name, he makes the car payments and considers the car to be his. He further acknowledges that his belief that the car is about to be taken from him by his ozvpgwos-bf-bno comes from the "surveillance voices" that he hears. Perhaps as a positive sign, the patient is willing to accept that the idea that his son would, at his 's insistence, take the car away from him may be a matter of his mind "playing tricks on [him]." He acknowledges feeling depressed, but attributes it to hospitalization. At the same time, he acknowledges that he is also depressed because he does not have a place to live. We discussed the possibility of his living temporarily with his daughter, but his concern is that his daughter's boyfriend has a heart condition and the patient believes that it would not be "right" to add extra stress in the household. We talked about the patient's alcohol consumption amounts. Reportedly, the patient's son indicates that the patient is drinking more than he is telling us. Reportedly, the patient's son says that the patient sometimes buys "30" beers at a time. Today, the patient chuckled when I told him that has said, "for one thing, I do not have enough money to buy 30 beers. The most I ever drink is a 6 pack, but usually it is 2, 3 or sometimes 4 beers, but no more than that." He also points out that he has had no trouble not drinking since he has been in the hospital and says he does not crave alcohol, but does enjoy relaxing with a beer. He continues to believe that he is under surveillance, regardless of his location, by various persons who are organized by, and under the direction of, his dodxelus-ov-wur's parents and his jixffway-uv-qdu. At the same time, today, the patient tells me that he is feeling less distressed about it because he has come to accept that these are "just threats" and that he probably is not an actual danger since he has not had any harm come to him at all up to this point. The patient also reports that he becomes extremely anxious when he hears the voices. He says that they say things like "were going to make sure you go to [facility]!"" We are going to shoot you between the eyes!" He notes that when this happens, he feels a great deal of distress, even though he can tell himself that these are probably just threats and not actually going to happen. Physical Exam Psychiatric Orientation: alert and oriented x 3 Apperance: appropriately dressed and + disheveled Eye Contact: + fair eye contact Motor Behavior: steady gait and station Speech: normal rate/rhythm/volume of speech Affect: + depressed affect and + anxious affect Mood: + depressed mood and + anxious mood Thought Process: goal directed thought process and + concrete thought process Thought Content: + delusions (The patient harbors paranoid delusions that are mood congruent with depression) Suicidal Thoughts: denies suicidal thoughts Homicidal Thoughts: denies homicidal thoughts Hallucinations: + auditory hallucinations Cognition: recent memory grossly intact, remote memory grossly intact and language grossly intact Estimated Intelligence: average estimated intelligence Insight: + poor insight (The patient does not question is delusional believes. However, he does acknowledge that he is feeling depressed and anxious. He also understands that he is in need of detention and stable support.) Judgement: + fair judgement Vital Signs (Past 24 Hours) Last Vital Signs Temp 36.6 C 07/06/19 06:00 Pulse 78 07/06/19 06:37 Resp 17 07/06/19 06:00 BP 109/67 07/06/19 06:37 Pulse Ox 98 06/29/19 22:17 Results & Data Current Inpatient Medications Current Inpatient Medications: Current Inpatient Medications Acetaminophen (Tylenol) 650 mg PO Q4H PRN PRN Reason: Headache or Minor Fever Stop: 07/29/19 21:24 Al Hydrox/Mg Hydrox/Simethicone (Maalox) 30 ml PO Q4H PRN PRN Reason: GI Upset Stop: 07/29/19 21:24 Aripiprazole (Abilify) 20 mg PO QAM CHAD Stop: 08/06/19 08:59 Bismuth Subsalicylate (Kaopectate) 15 ml PO PRN PRN PRN Reason: Loose Stool Stop: 07/29/19 21:24 Clonazepam (Klonopin) 0.5 mg PO NOW STA Stop: 07/06/19 16:49 Haloperidol (Haldol) 5 mg PO Q6H PRN PRN Reason: psychosis/agitation Stop: 07/31/19 14:21 Last Admin: 07/02/19 09:43 Dose: 5 mg Documented by: Hydroxyzine HCl (Vistaril) 25 mg PO Q4H PRN PRN Reason: Anxiety Stop: 07/29/19 21:24 Hydroxyzine HCl (Vistaril) 50 mg PO HSZ PRN PRN Reason: Insomnia Stop: 07/29/19 21:24 Magnesium Hydroxide (Milk Of Magnesia) 30 ml PO DAILY PRN PRN Reason: Heartburn Stop: 07/29/19 21:24 Nicotine Polacrilex (Nicorette 2mg) 1 piece MT PRN PRN PRN Reason: nicotine cravings Stop: 07/30/19 14:12 Last Admin: 06/30/19 14:47 Dose: 1 piece Documented by: Sertraline HCl (Zoloft) 150 mg PO QAM CHAD Stop: 08/06/19 08:59 Sodium Chloride ([place] Nasal) 1 - 2 sprays NA PRN PRN PRN Reason: Nasal Dryness/Congestion Stop: 07/29/19 21:24 Trazodone HCl (Desyrel) 50 mg PO HS CHAD Stop: 08/02/19 21:59 Last Admin: 07/05/19 21:02 Dose: 50 mg Documented by: Mental Health & Subst Abuse Tx Therapist Name of Therapist: None Director Of Religious Activities Name of Director Of Religious Activities: no providers Post Discharge Appointments Primary Care Physician Name Of Family Doctor: [facility] Date of Appointment with PCP: 07/19/19 Time of Appointment with PCP: 2:45pm Provider Appointment Comment: [facility] [place] [id number] CPT Code CPT Code 23741 (1) Psychosis Psychosis type: unspecified psychosis type Qualified Code(s): F29 - Unspecified psychosis not due to a substance or known physiological condition
[2019-07-06] MEDS: TRAZODONE HCL 50 MG TAB PO SCH (21:40)
[2019-07-07] MEDS: ARIPiprazole 10 MG TAB PO SCH (09:22)
[2019-07-07] MEDS: SERTRALINE HCL 50 MG TABLET PO SCH (09:23)
--- NOTE | 2019-07-07 13:07 | Psychiatric Progress Note ---
Date of Service July 07, 2019 Impression / Recommendations Impression 73-year-old male admitted voluntarily for inpatient psychiatric treatment due to reports of auditory and visual hallucinations and paranoia. Pt demonstrated poor self-care, as he had believed he was kicked out of his son's home and began living in his car. The patient has reported that he believes that the persons who are monitoring him or who have him "under surveillance" are his qpjyiwyq-ih-ivy's parents; i.e., the mother and rdmvwo-lp-kkw of his son, a man with whom he had been living. Patient had a negative head CT in ED and refused an MRI as part of cognitive work up. He will not cooperate with a Mini-cog with me today (07/07). He appears to have RLQ at times but denies today and refused CT. (1) Suicidal ideation: 06/30 - Denies intent to harm self, but admits to hearing commands to kill himself and others - Admitted to a locked inpatient behavioral health unit, on q15 minute safety checks - MNPR until safety can be adequately assessed - Encourage medication initiation/adjustments as indicated - Encourage participation in group and recreational therapies - Gather collateral information from outpatient providers - Suggest family meeting to involve outpatient supports in safety planning - Arrange appropriate aftercare 07/01 - Ongoing; both in that voices are telling him to hurt himself, and in that he is requesting assistance with ending his life - Continue MNPR until response to interventions is observed 07/02 -The patient reports that he is having no suicidal thoughts. He also focuses today on future plans, such as finding a place to live. He notes that he thinks that his mind will be much relieved once he is able to locate a secure place to live. However, he also reports persistent auditory hallucinations, continues to harbor the belief that he is being persecuted by others and, in particular, by his tsgthett-dr-zsl's parents, and he remains in need of inpatient psychiatric hospitalization because of his ongoing difficulty maintaining adequate oral intake and performing activities of daily living without the availability of 24- hour psychiatric services at the inpatient level of care. 07/03 -Today, the patient says that he does not intend to kill himself and although at times wishes that he were , he does not want to be and has decided that he would like to live. 07/04 - Pt does not verbalize active SI, but at one point in conversation about medication recommendations states "I'll try whatever, maybe one of them will kill me." He endorses ongoing hopelessness. 07/06 -The patient reports that he is not having any suicidal thoughts, although he acknowledges that he is very distressed by "all of the things that are going on." -The patient's son has confirmed that the guns that the patient had in his room have been locked in a safe, and the patient does not. (2) Psychosis: 06/30 - Very wide differential for this patient, as his presentation of psychosis is not typical given his age and lack of prior psychiatric history. - Gather collateral information from patient's family - Encourage use of risperidone 0.5mg q4h prn psychosis/anxiety - Fasting glucose and lipid panel ordered for tomorrow morning - Will attempt to further rule out organic cause of psychosis with additional blood work: B12, folic acid, heavy metals - Will be ideal for patient to have an MRI after discharge, as it is possible the patient's condition is organic in nature. Attempts to have an MRI prior to admission were not successful. 07/01 - Risperidone increased to 1mg POq4h prn - if higher dosage remains ineffective, will likely trial haloperidol to target his ongoing hallucinations - Pt remains agreeable to medications, though does not believe they will be beneficial - Fasting glucose slightly elevated at 103; lipid panel is WNL - Folic acid and B12 are WNL - Heavy metals is pending 07/03 -Risperidone was discontinued yesterday in favor of aripiprazole 5 mg. The patient indicated that he tolerated aripiprazole, and notes no side effects from it. However, he continues to demonstrate psychotic features. Specifically, his thought content includes paranoid and persecutory beliefs that he is at risk of being "shot" between the eyes by persons unseen. He also reports that he continues to hear persecutory and depreciating "voices," and indicates that these have not improved. -Today, we will be increasing his dose of aripiprazole to a dose of 10 mg daily to address psychosis and, hopefully, as an adjunct to sertraline. 07/04 - No profound benefit observed with titration of aripiprazole - patient denies any observed changes at this time. He continues to demonstrate psychotic features. Before entirely adjusting his scheduled medications, we will trial a one-time dose of perphenazine 8mg. If patient observes benefit - can consider 8mg BID dosing, with titration as tolerated. If no profound changes, would suggest titrating aripiprazole to 20mg as a consideration. 07/05 - Pt had refused his medications this morning, and reported perphenazine 8mg last evening was not overly helpful. Although it would be suggested that his dose of perphenazine be titrated, the patient is unwilling to continue the medication because it is "too many pills". As the alternative is patient likely discontinuing medications even without relief of symptoms - this provider is suggesting return to aripiprazole with titration of the dose to 15mg today. Can continue titration of the medication as tolerated until his symptoms improve 07/06 -We have discontinued perphenazine. It is not clear if perphenazine would or would not of help to him, but because it only comes from the pharmacy currently and 2 mg strength, and because the patient verbalizes distressed about the number of pills he is having to take (within the context of the fact that he generally does not take any medications at all) and we have decided to discontinue perphenazine and return to aripiprazole - -The patient's dose of aripiprazole is being increased to a dose of 20 mg a day. The patient was advised accordingly. -At least part of the issue in this case is that the patient's psychosis tends to lead to worsening anxiety, and there appears to be a " loop" of sorts between anxious distress and the intensity of the auditory hallucinations. Accordingly, we are offering the patient a trial of clonazepam 0.5 mg today to see if this might help reduce his anxiety and, therefore, reduce the degree to which he focuses on the distress associated with the content of the auditory hallucinations that he is continuing to experience.. (3) Alcohol abuse: 06/30 - Pt reports rather significant history of alcohol abuse. States he has not been drinking for several days prior to admission. - Vitals every shift, with close observation for signs of withdrawal - can order AWSS protocol if needed - Pt unable to participate in intervention at this time, can readdress when more appropriate 07/01 - Continue vitals every shift - no significant change to suggest AWSS is necessary at this time 07/03 -The patient currently acknowledges that he was at one time a very heavy drinker and consumed whiskey as well as "may be 12 beers" a day. However, he reports that his alcohol consumption has more typically been "may be 2 beers a day, but not even every day." He has shown no signs of alcohol withdrawal. 07/06 -There appears to possibly be discrepancy between what the patient reports as his typical alcohol consumption amount and what his son suggests may be as alcohol usage pattern. The son acknowledges that he is not sure that he is aware of his father's drinking habits, and suggests that he that his father sometimes will talk about "going down to the store" and returning him with beer. According to 1 report, the patient may be drinking as much as 30 beers over the course of a day or 2. When we talk to the patient about this, he laughed and assured us that he not only could not drink that many beers if he tried to, he could not afford to buy that many beers. He insists that he typically drinks 2, 3, or maybe 4 beers a day, but not every day. He acknowledges that on occasion he may drink a 6 pack, but he says he does not drink more than that and has not consumed alcohol in greater amounts for a number of years. (4) Depression: 07/03 -The patient continues to report depression. His eyes well up when he is talking about his late , a woman who in her 50s approximately 11 years ago of heart disease following open heart surgery. The patient continues to describe his in glowing terms, and tells us that she was "very sweet" and "very kind." He also notes that he is continuing to miss her on a daily basis. He also discusses his feelings about having his dytekwse-wo-ysz insist upon his returning the car that he has been using because it belongs to the son and wuzadocf-no-hiq. (We do not know if this is true, and the son has given no indication that it is.) -Sertraline was added at 50 mg daily. The patient reports that he has had no trouble tolerating it, and plan will be to increase his dose to 100 mg a day beginning tomorrow, provided that no significant side effects emerge during the balance of today. -As noted above, aripiprazole 5 mg daily was added both for psychosis and, hopefully, as an adjunct for sertraline. The dose of aripiprazole is being increased to 10 mg daily (with an additional 5 mg dose this evening) because of persistent auditory hallucinations and delusional thought content. 07/05 - Continue medication regimen as above - as focus of today's conversation was adjusting his antipsychotic medication - we did not discuss adjustments to his dose of sertraline. Consider titration of the medication to 150mg if patient is willing to continue. 07/06 -We are increasing his dose of sertraline from 100 mg a day to 150 mg a day. His working diagnosis remains major depressive disorder, severe, with psychotic features. The content of his hallucinations is mood congruent with depression. He endorses feelings of depression, and are hope is that he will respond favorably to antidepressant medications so that his psychotic features will resolve. -We will entertain the possibility of trying a different antidepressant medication if the patient continues to do not show much favorable response to sertraline. Inventory Assets Strengths: willingness for treatment, supportive family Needs: additional medical work-up, gather collateral information, initiation of medication to allow for resolution of hallucinations Risk Factors Assessment Male: Yes : Yes Do You Have Access To A Gun?: Yes (gives convoluted report, but ultimately admits to having access) Health Problems: No Mental Health Diagnoses: No Substance Use Disorders: Yes Previous Attempt: No Family History of Suicide: No Previous Psychiatric Hospitalization: No Hopelessness: No Protective Factors Assessment Buddhism Beliefs: No : No Responsible for Young Children: No Employed: No (retired) Stable Relationships: No Supportive Family: Yes Interval History Identifying Information KRISHNA CERVANTES is a 73-year-old M who reports he has been living in a car for the past 2 months, having previously lived with his son and ykgmcafu-kn-iqx for the past 5 years. Pt has no known psychiatric history but was admitted on 06/29/19 22:08 on a 201 voluntary commitment for reports of auditory/visual hallucinations, paranoia, disorganization, and inability to care for self. Daughter and son were reportedly concerned and suggested mental health evaluation. Chief Complaint "Yeah I'm not going to take pills, it's not my thing.". Review of Systems Sleep Information Total Hours of Sleep: 7.5 Sleep Comments: snores softly at times Meal Information Percent Meal Consumed - Breakfast: 50 Percent Meal Consumed - Lunch: 100 Percent Meal Consumed - Dinner: 100 Nutrition Comment: per meal record Subjective Subjective Patient was seen & assessed and interval progress reviewed with nursing and social work. housing options limited as son remains concerned he will regress again, car is gone and patient also states he doesn't want to be "somewhere I'm monitored". He did complete application for [facility] but needs a check to have application processed. He only took 1 pill of Abilify 10 mg this am. Physical Exam Psychiatric Orientation: alert, oriented x 3 and + guarded Apperance: appropriately dressed, appropriately groomed and appeared stated age Eye Contact: + poor eye contact (Only brief moments of direct eye contact) Motor Behavior: steady gait and station Affect: + depressed affect, + anxious affect and + flat affect Thought Process: + perseveration and + concrete thought process Thought Content: + paranoid ( believing he is being monitored ) Suicidal Thoughts: denies suicidal thoughts and denies suicidal intent Homicidal Thoughts: denies homicidal thoughts Hallucinations: no visual hallucinations, no tactile hallucinations and no gustatory hallucinations Cognition: remote memory grossly intact and language grossly intact Estimated Intelligence: average estimated intelligence and consistent with education level Insight: + impaired insight Judgement: + poor judgement Vital Signs (Past 24 Hours) Last Vital Signs Temp 36.6 C 07/07/19 06:54 Pulse 73 07/07/19 06:55 Resp 18 07/07/19 06:54 BP 99/63 L 07/07/19 06:55 Pulse Ox 98 06/29/19 22:17 Results & Data Current Inpatient Medications Current Inpatient Medications: Current Inpatient Medications Acetaminophen (Tylenol) 650 mg PO Q4H PRN PRN Reason: Headache or Minor Fever Stop: 07/29/19 21:24 Al Hydrox/Mg Hydrox/Simethicone (Maalox) 30 ml PO Q4H PRN PRN Reason: GI Upset Stop: 07/29/19 21:24 Aripiprazole (Abilify) 20 mg PO QAM CHAD Stop: 08/06/19 08:59 Last Admin: 07/07/19 09:22 Dose: 10 mg Documented by: Bismuth Subsalicylate (Kaopectate) 15 ml PO PRN PRN PRN Reason: Loose Stool Stop: 07/29/19 21:24 Haloperidol (Haldol) 5 mg PO Q6H PRN PRN Reason: psychosis/agitation Stop: 07/31/19 14:21 Last Admin: 07/02/19 09:43 Dose: 5 mg Documented by: Hydroxyzine HCl (Vistaril) 25 mg PO Q4H PRN PRN Reason: Anxiety Stop: 07/29/19 21:24 Hydroxyzine HCl (Vistaril) 50 mg PO HSZ PRN PRN Reason: Insomnia Stop: 07/29/19 21:24 Magnesium Hydroxide (Milk Of Magnesia) 30 ml PO DAILY PRN PRN Reason: Heartburn Stop: 07/29/19 21:24 Nicotine Polacrilex (Nicorette 2mg) 1 piece MT PRN PRN PRN Reason: nicotine cravings Stop: 07/30/19 14:12 Last Admin: 06/30/19 14:47 Dose: 1 piece Documented by: Sertraline HCl (Zoloft) 150 mg PO QAM CHAD Stop: 08/06/19 08:59 Last Admin: 07/07/19 09:23 Dose: Not Given Documented by: Sodium Chloride ([place] Nasal) 1 - 2 sprays NA PRN PRN PRN Reason: Nasal Dryness/Congestion Stop: 07/29/19 21:24 Trazodone HCl (Desyrel) 50 mg PO HS CHAD Stop: 08/02/19 21:59 Last Admin: 07/06/19 21:40 Dose: 50 mg Documented by: Mental Health & Subst Abuse Tx Therapist Name of Therapist: None Event Promoter Name of Event Promoter: no providers Post Discharge Appointments Primary Care Physician Name Of Family Doctor: [facility] Date of Appointment with PCP: 07/19/19 Time of Appointment with PCP: 2:45pm Provider Appointment Comment: [address] [place] [id number] CPT Code CPT Code 88472 (1) Psychosis Psychosis type: unspecified psychosis type Qualified Code(s): F29 - Unspecified psychosis not due to a substance or known physiological condition
[2019-07-07] MEDS: TRAZODONE HCL 50 MG TAB PO SCH (20:57)
[2019-07-07] MEDS: HALOPERIDOL 5 MG TAB PO PRN (20:57)
[2019-07-08] MEDS: SERTRALINE HCL 50 MG TABLET PO SCH (10:22)
[2019-07-08] MEDS: ARIPiprazole 10 MG TAB PO SCH (10:22)
--- NOTE | 2019-07-08 13:24 | Psychiatric Progress Note ---
Date of Service July 08, 2019 Impression / Recommendations Impression 73-year-old male admitted voluntarily for inpatient psychiatric treatment due to reports of auditory and visual hallucinations and paranoia. Pt demonstrated poor self-care, as he had believed he was kicked out of his son's home and began living in his car. The patient has reported that he believes that the persons who are monitoring him or who have him "under surveillance" are his [id number]'s parents; i.e., the mother and buelbf-sd-nhl of his son, a man with whom he had been living. Patient had a negative head CT in ED and refused an MRI as part of cognitive work up. He will not cooperate with a Mini-cog with me today (07/07). He appears to have RLQ at times. (1) Suicidal ideation: 06/30 - Denies intent to harm self, but admits to hearing commands to kill himself and others - Admitted to a locked inpatient behavioral health unit, on q15 minute safety checks - MNPR until safety can be adequately assessed - Encourage medication initiation/adjustments as indicated - Encourage participation in group and recreational therapies - Gather collateral information from outpatient providers - Suggest family meeting to involve outpatient supports in safety planning - Arrange appropriate aftercare 07/01 - Ongoing; both in that voices are telling him to hurt himself, and in that he is requesting assistance with ending his life - Continue MNPR until response to interventions is observed 07/02 -The patient reports that he is having no suicidal thoughts. He also focuses today on future plans, such as finding a place to live. He notes that he thinks that his mind will be much relieved once he is able to locate a secure place to live. However, he also reports persistent auditory hallucinations, continues to harbor the belief that he is being persecuted by others and, in particular, by his antybxay-jp-pdr's parents, and he remains in need of inpatient psychiatric hospitalization because of his ongoing difficulty maintaining adequate oral intake and performing activities of daily living without the availability of 24- hour psychiatric services at the inpatient level of care. 07/03 -Today, the patient says that he does not intend to kill himself and although at times wishes that he were , he does not want to be and has decided that he would like to live. 07/04 - Pt does not verbalize active SI, but at one point in conversation about medication recommendations states "I'll try whatever, maybe one of them will kill me." He endorses ongoing hopelessness. 07/06 -The patient reports that he is not having any suicidal thoughts, although he acknowledges that he is very distressed by "all of the things that are going on." -The patient's son has confirmed that the guns that the patient had in his room have been locked in a safe, and the patient does not. (2) Psychosis: 06/30 - Very wide differential for this patient, as his presentation of psychosis is not typical given his age and lack of prior psychiatric history. - Gather collateral information from patient's family - Encourage use of risperidone 0.5mg q4h prn psychosis/anxiety - Fasting glucose and lipid panel ordered for tomorrow morning - Will attempt to further rule out organic cause of psychosis with additional blood work: B12, folic acid, heavy metals - Will be ideal for patient to have an MRI after discharge, as it is possible the patient's condition is organic in nature. Attempts to have an MRI prior to admission were not successful. 07/01 - Risperidone increased to 1mg POq4h prn - if higher dosage remains ineffective, will likely trial haloperidol to target his ongoing hallucinations - Pt remains agreeable to medications, though does not believe they will be beneficial - Fasting glucose slightly elevated at 103; lipid panel is WNL - Folic acid and B12 are WNL - Heavy metals is pending 07/03 -Risperidone was discontinued yesterday in favor of aripiprazole 5 mg. The patient indicated that he tolerated aripiprazole, and notes no side effects from it. However, he continues to demonstrate psychotic features. Specifically, his thought content includes paranoid and persecutory beliefs that he is at risk of being "shot" between the eyes by persons unseen. He also reports that he continues to hear persecutory and depreciating "voices," and indicates that these have not improved. -Today, we will be increasing his dose of aripiprazole to a dose of 10 mg daily to address psychosis and, hopefully, as an adjunct to sertraline. 07/04 - No profound benefit observed with titration of aripiprazole - patient denies any observed changes at this time. He continues to demonstrate psychotic features. Before entirely adjusting his scheduled medications, we will trial a one-time dose of perphenazine 8mg. If patient observes benefit - can consider 8mg BID dosing, with titration as tolerated. If no profound changes, would suggest titrating aripiprazole to 20mg as a consideration. 07/05 - Pt had refused his medications this morning, and reported perphenazine 8mg last evening was not overly helpful. Although it would be suggested that his dose of perphenazine be titrated, the patient is unwilling to continue the medication because it is "too many pills". As the alternative is patient likely discontinuing medications even without relief of symptoms - this provider is suggesting return to aripiprazole with titration of the dose to 15mg today. Can continue titration of the medication as tolerated until his symptoms improve 07/06 -We have discontinued perphenazine. It is not clear if perphenazine would or would not of help to him, but because it only comes from the pharmacy currently and 2 mg strength, and because the patient verbalizes distressed about the number of pills he is having to take (within the context of the fact that he generally does not take any medications at all) and we have decided to discontinue perphenazine and return to aripiprazole - -The patient's dose of aripiprazole is being increased to a dose of 20 mg a day. The patient was advised accordingly. -At least part of the issue in this case is that the patient's psychosis tends to lead to worsening anxiety, and there appears to be a " loop" of sorts between anxious distress and the intensity of the auditory hallucinations. Accordingly, we are offering the patient a trial of clonazepam 0.5 mg today to see if this might help reduce his anxiety and, therefore, reduce the degree to which he focuses on the distress associated with the content of the auditory hallucinations that he is continuing to experience.. 07/08--has been refusing adequate doses of Abilify and Zoloft so essentially self tapered. Positive response to Haldol and he is willing to take 5 mg q pm. (3) Alcohol abuse: 06/30 - Pt reports rather significant history of alcohol abuse. States he has not been drinking for several days prior to admission. - Vitals every shift, with close observation for signs of withdrawal - can order AWSS protocol if needed - Pt unable to participate in intervention at this time, can readdress when more appropriate 8/25 - Continue vitals every shift - no significant change to suggest AWSS is necessary at this time 07/03 -The patient currently acknowledges that he was at one time a very heavy drinker and consumed whiskey as well as "may be 12 beers" a day. However, he reports that his alcohol consumption has more typically been "may be 2 beers a day, but not even every day." He has shown no signs of alcohol withdrawal. 07/06 -There appears to possibly be discrepancy between what the patient reports as his typical alcohol consumption amount and what his son suggests may be as alcohol usage pattern. The son acknowledges that he is not sure that he is aware of his father's drinking habits, and suggests that he that his father sometimes will talk about "going down to the store" and returning him with beer. According to 1 report, the patient may be drinking as much as 30 beers over the course of a day or 2. When we talk to the patient about this, he laughed and assured us that he not only could not drink that many beers if he tried to, he could not afford to buy that many beers. He insists that he typically drinks 2, 3, or maybe 4 beers a day, but not every day. He acknowledges that on occasion he may drink a 6 pack, but he says he does not drink more than that and has not consumed alcohol in greater amounts for a number of years. (4) Depression: 07/03 -The patient continues to report depression. His eyes well up when he is talking about his late , a woman who in her 50s approximately 11 years ago of heart disease following open heart surgery. The patient continues to describe his in glowing terms, and tells us that she was "very sweet" and "very kind." He also notes that he is continuing to miss her on a daily basis. He also discusses his feelings about having his [id number] insist upon his returning the car that he has been using because it belongs to the son and [id number]. (We do not know if this is true, and the son has given no indication that it is.) -Sertraline was added at 50 mg daily. The patient reports that he has had no trouble tolerating it, and plan will be to increase his dose to 100 mg a day beginning tomorrow, provided that no significant side effects emerge during the balance of today. -As noted above, aripiprazole 5 mg daily was added both for psychosis and, hopefully, as an adjunct for sertraline. The dose of aripiprazole is being increased to 10 mg daily (with an additional 5 mg dose this evening) because of persistent auditory hallucinations and delusional thought content. 07/05 - Continue medication regimen as above - as focus of today's conversation was adjusting his antipsychotic medication - we did not discuss adjustments to his dose of sertraline. Consider titration of the medication to 150mg if patient is willing to continue. 07/06 -We are increasing his dose of sertraline from 100 mg a day to 150 mg a day. His working diagnosis remains major depressive disorder, severe, with psychotic features. The content of his hallucinations is mood congruent with depression. He endorses feelings of depression, and are hope is that he will respond favo rably to antidepressant medications so that his psychotic features will resolve. -We will entertain the possibility of trying a different antidepressant medication if the patient continues to do not show much favorable response to sertraline. Inventory Assets Strengths: willingness for treatment, supportive family Needs: additional medical work-up, gather collateral information, initiation of medication to allow for resolution of hallucinations Risk Factors Assessment Male: Yes : Yes Do You Have Access To A Gun?: Yes (gives convoluted report, but ultimately admits to having access) Health Problems: No Mental Health Diagnoses: No Substance Use Disorders: Yes Previous Attempt: No Family History of Suicide: No Previous Psychiatric Hospitalization: No Hopelessness: No Protective Factors Assessment L[employer] Beliefs: No : No Responsible for Young Children: No Employed: No (retired) Stable Relationships: No Supportive Family: Yes Interval History Identifying Information KRISHNA CERVANTES is a 73-year-old M who reports he has been living in a car for the past 2 months, having previously lived with his son and irtuzags-[id number] for the past 5 years. Pt has no known psychiatric history but was admitted on 06/29/19 22:08 on a 201 voluntary commitment for reports of auditory/visual hallucinations, paranoia, disorganization, and inability to care for self. Chief Complaint "I don't want pills but I took something for the voices". Review of Systems Sleep Information Total Hours of Sleep: 7 Sleep Comments: snores softly at times Meal Information Percent Meal Consumed - Breakfast: 50 Percent Meal Consumed - Lunch: 30 Percent Meal Consumed - Dinner: 100 Nutrition Comment: per meal record Subjective Subjective Patient was seen & assessed and interval progress reviewed with nursing and social work. Still resistant to medications. He refused all but 10 mg of Abilify yesterday. He is willing to take 1 pill a day. It should be noted that he had positive response to prn Haldol yesterday. He slept well. Today he is more receptive to conversation though clearly still internally preoccupied. He did attend group and is keeping door to room open/now has roommate. He took all meals yesterday in his room and staff will continue to work on this. Physical Exam Psychiatric Orientation: alert and + guarded Apperance: appropriately groomed Eye Contact: + poor eye contact non spontaneous Affect: + depressed affect Mood: + depressed mood Thought Content: + paranoid Suicidal Thoughts: denies suicidal thoughts Homicidal Thoughts: denies homicidal thoughts Hallucinations: + auditory hallucinations (to shoot him between the eyes) Cognition: language grossly intact; + recent memory not intact and + attention not intact Insight: + impaired insight Judgement: + impaired judgement Vital Signs (Past 24 Hours) Last Vital Signs Temp 36.4 C L 07/08/19 06:46 Pulse 65 07/08/19 06:46 Resp 20 07/08/19 06:46 BP 99/63 L 07/08/19 06:47 Pulse Ox 98 06/29/19 22:17 Results & Data Current Inpatient Medications Current Inpatient Medications: Current Inpatient Medications Acetaminophen (Tylenol) 650 mg PO Q4H PRN PRN Reason: Headache or Minor Fever Stop: 07/29/19 21:24 Al Hydrox/Mg Hydrox/Simethicone (Maalox) 30 ml PO Q4H PRN PRN Reason: GI Upset Stop: 07/29/19 21:24 Bismuth Subsalicylate (Kaopectate) 15 ml PO PRN PRN PRN Reason: Loose Stool Stop: 07/29/19 21:24 Haloperidol (Haldol) 5 mg PO Q6H PRN PRN Reason: psychosis/agitation Stop: 07/31/19 14:21 Last Admin: 07/07/19 20:57 Dose: 5 mg Documented by: Haloperidol (Haldol) 5 mg PO HS CHAD Stop: 08/07/19 21:59 Hydroxyzine HCl (Vistaril) 25 mg PO Q4H PRN PRN Reason: Anxiety Stop: 07/29/19 21:24 Hydroxyzine HCl (Vistaril) 50 mg PO HSZ PRN PRN Reason: Insomnia Stop: 07/29/19 21:24 Magnesium Hydroxide (Milk Of Magnesia) 30 ml PO DAILY PRN PRN Reason: Heartburn Stop: 07/29/19 21:24 Nicotine Polacrilex (Nicorette 2mg) 1 piece MT PRN PRN PRN Reason: nicotine cravings Stop: 07/30/19 14:12 Last Admin: 06/30/19 14:47 Dose: 1 piece Documented by: Sodium Chloride ([place] Nasal) 1 - 2 sprays NA PRN PRN PRN Reason: Nasal Dryness/Congestion Stop: 07/29/19 21:24 Mental Health & Subst Abuse Tx Therapist Name of Therapist: None Claims Agent Right Of Way Name of Claims Agent Right Of Way: no providers Post Discharge Appointments Primary Care Physician Name Of Family Doctor: [facility] Date of Appointment with PCP: 07/19/19 Time of Appointment with PCP: 2:45pm Provider Appointment Comment: [address] [place] [address] [place] [id number] CPT Code CPT Code 80511 (1) Psychosis Psychosis type: unspecified psychosis type Qualified Code(s): F29 - Unspecified psychosis not due to a substance or known physiological condition
[2019-07-08] MEDS: HALOPERIDOL 5 MG TAB PO SCH (20:58)
--- NOTE | 2019-07-09 12:15 | Psychiatric Progress Note ---
Date of Service July 09, 2019 Impression / Recommendations Impression 73-year-old male admitted voluntarily for inpatient psychiatric treatment due to reports of auditory and visual hallucinations and paranoia. Pt demonstrated poor self-care, as he had believed he was kicked out of his son's home and began living in his car. The patient has reported that he believes that the persons who are monitoring him or who have him "under surveillance" are his ohlpkykx-oe-ium's parents; i.e., the mother and zgywix-ay-udn of his son, a man with whom he had been living. Patient had a negative head CT in ED and refused an MRI as part of cognitive work up. (1) Suicidal ideation: 06/30 - Denies intent to harm self, but admits to hearing commands to kill himself and others - Admitted to a locked inpatient behavioral health unit, on q15 minute safety checks - MNPR until safety can be adequately assessed - Encourage medication initiation/adjustments as indicated - Encourage participation in group and recreational therapies - Gather collateral information from outpatient providers - Suggest family meeting to involve outpatient supports in safety planning - Arrange appropriate aftercare 07/01 - Ongoing; both in that voices are telling him to hurt himself, and in that he is requesting assistance with ending his life - Continue MNPR until response to interventions is observed 07/02 -The patient reports that he is having no suicidal thoughts. He also focuses today on future plans, such as finding a place to live. He notes that he thinks that his mind will be much relieved once he is able to locate a secure place to live. However, he also reports persistent auditory hallucinations, continues to harbor the belief that he is being persecuted by others and, in particular, by his xawprzkw-md-lzj's parents, and he remains in need of inpatient psychiatric hospitalization because of his ongoing difficulty maintaining adequate oral intake and performing activities of daily living without the availability of 24- hour psychiatric services at the inpatient level of care. 07/03 -Today, the patient says that he does not intend to kill himself and although at times wishes that he were , he does not want to be and has decided that he would like to live. 07/04 - Pt does not verbalize active SI, but at one point in conversation about medication recommendations states "I'll try whatever, maybe one of them will kill me." He endorses ongoing hopelessness. 07/06 -The patient reports that he is not having any suicidal thoughts, although he acknowledges that he is very distressed by "all of the things that are going on." -The patient's son has confirmed that the guns that the patient had in his room have been locked in a safe, and the patient does not. (2) Psychosis: 06/30 - Very wide differential for this patient, as his presentation of psychosis is not typical given his age and lack of prior psychiatric history. - Gather collateral information from patient's family - Encourage use of risperidone 0.5mg q4h prn psychosis/anxiety - Fasting glucose and lipid panel ordered for tomorrow morning - Will attempt to further rule out organic cause of psychosis with additional blood work: B12, folic acid, heavy metals - Will be ideal for patient to have an MRI after discharge, as it is possible the patient's condition is organic in nature. Attempts to have an MRI prior to admission were not successful. 07/01 - Risperidone increased to 1mg POq4h prn - if higher dosage remains ineffective, will likely trial haloperidol to target his ongoing hallucinations - Pt remains agreeable to medications, though does not believe they will be beneficial - Fasting glucose slightly elevated at 103; lipid panel is WNL - Folic acid and B12 are WNL - Heavy metals is pending 07/03 -Risperidone was discontinued yesterday in favor of aripiprazole 5 mg. The patient indicated that he tolerated aripiprazole, and notes no side effects from it. However, he continues to demonstrate psychotic features. Specifically, his thought content includes paranoid and persecutory beliefs that he is at risk of being "shot" between the eyes by persons unseen. He also reports that he continues to hear persecutory and depreciating "voices," and indicates that these have not improved. -Today, we will be increasing his dose of aripiprazole to a dose of 10 mg daily to address psychosis and, hopefully, as an adjunct to sertraline. 07/04 - No profound benefit observed with titration of aripiprazole - patient denies any observed changes at this time. He continues to demonstrate psychotic features. Before entirely adjusting his scheduled medications, we will trial a one-time dose of perphenazine 8mg. If patient observes benefit - can consider 8mg BID dosing, with titration as tolerated. If no profound changes, would suggest titrating aripiprazole to 20mg as a consideration. 07/05 - Pt had refused his medications this morning, and reported perphenazine 8mg last evening was not overly helpful. Although it would be suggested that his dose of perphenazine be titrated, the patient is unwilling to continue the medication because it is "too many pills". As the alternative is patient likely discontinuing medications even without relief of symptoms - this provider is suggesting return to aripiprazole with titration of the dose to 15mg today. Can continue titration of the medication as tolerated until his symptoms improve 07/06 -We have discontinued perphenazine. It is not clear if perphenazine would or would not of help to him, but because it only comes from the pharmacy currently and 2 mg strength, and because the patient verbalizes distressed about the number of pills he is having to take (within the context of the fact that he generally does not take any medications at all) and we have decided to discontinue perphenazine and return to aripiprazole - -The patient's dose of aripiprazole is being increased to a dose of 20 mg a day. The patient was advised accordingly. -At least part of the issue in this case is that the patient's psychosis tends to lead to worsening anxiety, and there appears to be a " loop" of sorts between anxious distress and the intensity of the auditory hallucinations. Accordingly, we are offering the patient a trial of clonazepam 0.5 mg today to see if this might help reduce his anxiety and, therefore, reduce the degree to which he focuses on the distress associated with the content of the auditory hallucinations that he is continuing to experience.. 07/08--has been refusing adequate doses of Abilify and Zoloft so essentially self tapered. Positive response to Haldol and he is willing to take 5 mg q pm. 07/09 continue Haldol (3) Alcohol abuse: 06/30 - Pt reports rather significant history of alcohol abuse. States he has not been drinking for several days prior to admission. - Vitals every shift, with close observation for signs of withdrawal - can order AWSS protocol if needed - Pt unable to participate in intervention at this time, can readdress when more appropriate 07/01 - Continue vitals every shift - no significant change to suggest AWSS is necessary at this time 07/03 -The patient currently acknowledges that he was at one time a very heavy drinker and consumed whiskey as well as "may be 12 beers" a day. However, he reports that his alcohol consumption has more typically been "may be 2 beers a day, but not even every day." He has shown no signs of alcohol withdrawal. 07/06 -There appears to possibly be discrepancy between what the patient reports as his typical alcohol consumption amount and what his son suggests may be as alcohol usage pattern. The son acknowledges that he is not sure that he is aware of his father's drinking habits, and suggests that he that his father sometimes will talk about "going down to the store" and returning him with beer. According to 1 report, the patient may be drinking as much as 30 beers over the course of a day or 2. When we talk to the patient about this, he laughed and assured us that he not only could not drink that many beers if he tried to, he could not afford to buy that many beers. He insists that he typically drinks 2, 3, or maybe 4 beers a day, but not every day. He acknowledges that on occasion he may drink a 6 pack, but he says he does not drink more than that and has not consumed alcohol in greater amounts for a number of years. (4) Depression: 07/03 -The patient continues to report depression. His eyes well up when he is talking about his late , a woman who in her 50s approximately 11 years ago of heart disease following open heart surgery. The patient continues to describe his in glowing terms, and tells us that she was "very sweet" and "very kind." He also notes that he is continuing to miss her on a daily basis. He also discusses his feelings about having his aasyikvn-lp-gwf insist upon his returning the car that he has been using because it belongs to the son and nuieuawy-yb-oqp. (We do not know if this is true, and the son has given no indication that it is.) -Sertraline was added at 50 mg daily. The patient reports that he has had no trouble tolerating it, and plan will be to increase his dose to 100 mg a day beginning tomorrow, provided that no significant side effects emerge during the balance of today. -As noted above, aripiprazole 5 mg daily was added both for psychosis and, hopefully, as an adjunct for sertraline. The dose of aripiprazole is being increased to 10 mg daily (with an additional 5 mg dose this evening) because of persistent auditory hallucinations and delusional thought content. 07/05 - Continue medication regimen as above - as focus of today's conversation was adjusting his antipsychotic medication - we did not discuss adjustments to his dose of sertraline. Consider titration of the medication to 150mg if patient is willing to continue. 07/06 -We are increasing his dose of sertraline from 100 mg a day to 150 mg a day. His working diagnosis remains major depressive disorder, severe, with psychotic features. The content of his hallucinations is mood congruent with depression. He endorses feelings of depression, and are hope is that he will respond favorably to antidepressant medications so that his psychotic features will resolve. -We will entertain the possibility of trying a different antidepressant medication if the patient continues to do not show much favorable response to sertraline. Inventory Assets Strengths: willingness for treatment, supportive family Needs: additional medical work-up, gather collateral information, initiation of medication to allow for resolution of hallucinations Risk Factors Assessment Male: Yes : Yes Do You Have Access To A Gun?: Yes (gives convoluted report, but ultimately admits to having access) Health Problems: No Mental Health Diagnoses: No Substance Use Disorders: Yes Previous Attempt: No Family History of Suicide: No Previous Psychiatric Hospitalization: No Hopelessness: No Protective Factors Assessment Scientologist Beliefs: No : No Responsible for Young Children: No Employed: No (retired) Stable Relationships: No Supportive Family: Yes Interval History Identifying Information KRISHNA CERVANTES is a 73-year-old M who reports he has been living in a car for the past 2 months, having previously lived with his son and bzlnrjhc-en-yac for the past 5 years. Pt has no known psychiatric history but was admitted on 06/29/19 22:08 on a 201 voluntary commitment for reports of auditory/visual hallucinations, paranoia, disorganization, and inability to care for self. Chief Complaint "I'm feeling pretty good today, I just need a place". Review of Systems Sleep Information Total Hours of Sleep: 5.75 Sleep Comments: slept in his room Meal Information Percent Meal Consumed - Breakfast: 50 Percent Meal Consumed - Lunch: 100 Percent Meal Consumed - Dinner: 100 Nutrition Comment: per meal record Subjective Subjective Patient was seen & assessed and interval progress reviewed with nursing. He reports that hallucinations are "barely there". He is tolerating having a roommate though initially he said some paranoid comments that hoping he wouldn't mess with him during the night. He is now attending group regularly and more animated in conversation. He still doesn't want to live with his son but not because he believes there are cameras there, he just doesn't want to be a burden. Tolerating Haldol without side effects and likes that he has 1 pill a day. Physical Exam Psychiatric Orientation: alert Apperance: appropriately groomed Eye Contact: + fair eye contact Motor Behavior: steady gait and station Speech: normal rate/rhythm/volume of speech Affect: + blunted affect pleasant Thought Process: goal directed thought process Thought Content: + paranoid and + delusions (lessened) Suicidal Thoughts: denies suicidal thoughts Homicidal Thoughts: denies homicidal thoughts Hallucinations: + auditory hallucinations Cognition: attention grossly intact and language grossly intact Estimated Intelligence: average estimated intelligence Insight: + limited insight Judgement: + limited judgement Vital Signs (Past 24 Hours) Last Vital Signs Temp 36.6 C 07/09/19 06:49 Pulse 73 07/09/19 06:50 Resp 18 07/09/19 06:49 BP 122/70 07/09/19 06:50 Pulse Ox 98 06/29/19 22:17 Results & Data Current Inpatient Medications Current Inpatient Medications: Current Inpatient Medications Acetaminophen (Tylenol) 650 mg PO Q4H PRN PRN Reason: Headache or Minor Fever Stop: 07/29/19 21:24 Al Hydrox/Mg Hydrox/Simethicone (Maalox) 30 ml PO Q4H PRN PRN Reason: GI Upset Stop: 07/29/19 21:24 Bismuth Subsalicylate (Kaopectate) 15 ml PO PRN PRN PRN Reason: Loose Stool Stop: 07/29/19 21:24 Haloperidol (Haldol) 5 mg PO Q6H PRN PRN Reason: psychosis/agitation Stop: 07/31/19 14:21 Last Admin: 07/07/19 20:57 Dose: 5 mg Documented by: Haloperidol (Haldol) 5 mg PO HS CHAD Stop: 08/07/19 21:59 Last Admin: 07/08/19 20:58 Dose: 5 mg Documented by: Hydroxyzine HCl (Vistaril) 25 mg PO Q4H PRN PRN Reason: Anxiety Stop: 07/29/19 21:24 Hydroxyzine HCl (Vistaril) 50 mg PO HSZ PRN PRN Reason: Insomnia Stop: 07/29/19 21:24 Magnesium Hydroxide (Milk Of Magnesia) 30 ml PO DAILY PRN PRN Reason: Heartburn Stop: 07/29/19 21:24 Nicotine Polacrilex (Nicorette 2mg) 1 piece MT PRN PRN PRN Reason: nicotine cravings Stop: 07/30/19 14:12 Last Admin: 06/30/19 14:47 Dose: 1 piece Documented by: Sodium Chloride (Norcatur Nasal) 1 - 2 sprays NA PRN PRN PRN Reason: Nasal Dryness/Congestion Stop: 07/29/19 21:24 Mental Health & Subst Abuse Tx Therapist Name of Therapist: None 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
[2019-07-09] MEDS: HALOPERIDOL 5 MG TAB PO SCH (20:37)
--- NOTE | 2019-07-10 09:00 | Psychiatric Progress Note ---
Date of Service July 10, 2019 Impression / Recommendations Impression 73-year-old male admitted voluntarily for inpatient psychiatric treatment for psychosis with auditory and visual hallucinations and paranoia. He demonstrated poor self-care, as he believed he was kicked out of his son's home and began living in his car, although this was part of his psychosis and not true per family. He has delusions that the persons who are monitoring him or who have him "under surveillance" are his yvonpjpr-po-nvw's parents; i.e., the mother and csztcg-go-wss of his son, who also live with his son. Patient had a negative head CT in ED and refused an MRI as part of cognitive work up. (1) Suicidal ideation: 06/30 - Denies intent to harm self, but admits to hearing commands to kill himself and others - Admitted to a locked inpatient behavioral health unit, on q15 minute safety checks - MNPR until safety can be adequately assessed - Encourage medication initiation/adjustments as indicated - Encourage participation in group and recreational therapies - Gather collateral information from outpatient providers - Suggest family meeting to involve outpatient supports in safety planning - Arrange appropriate aftercare 07/01 - Ongoing; both in that voices are telling him to hurt himself, and in that he is requesting assistance with ending his life - Continue MNPR until response to interventions is observed 07/02 - The patient reports that he is having no suicidal thoughts. He also focuses today on future plans, such as finding a place to live. He notes that he thinks that his mind will be much relieved once he is able to locate a secure place to live. However, he also reports persistent auditory hallucinations, continues to harbor the belief that he is being persecuted by others and, in particular, by his oicvalzk-vc-wfw's parents, and he remains in need of inpatient psychiatric hospitalization because of his ongoing difficulty maintaining adequate oral intake and performing activities of daily living without the availability of 24-hour psychiatric services at the inpatient level of care. 07/03 - Today, the patient says that he does not intend to kill himself and although at times wishes that he were , he does not want to be and has decided that he would like to live. 07/04 - Pt does not verbalize active SI, but at one point in conversation about medication recommendations states "I'll try whatever, maybe one of them will kill me." He endorses ongoing hopelessness. 07/06 - The patient reports that he is not having any suicidal thoughts, although he acknowledges that he is very distressed by "all of the things that are going on." - The patient's son has confirmed that the guns that the patient had in his room have been locked in a safe, and the patient does not have access. 07/10 - Patient denying suicidal thoughts, but reports ongoing auditory hallucinations which tell him he will be killed and they want to shoot him. He continues to believe that these are the voices of his son's in-laws, and that they wish him harm. (2) Psychosis: 06/30 - Very wide differential for this patient, as his presentation of psychosis is not typical given his age and lack of prior psychiatric history. - Gather collateral information from patient's family - Encourage use of risperidone 0.5mg q4h prn psychosis/anxiety - Fasting glucose and lipid panel ordered for tomorrow morning - Will attempt to further rule out organic cause of psychosis with additional blood work: B12, folic acid, heavy metals - Will be ideal for patient to have an MRI after discharge, as it is possible the patient's condition is organic in nature. Attempts to have an MRI prior to admission were not successful. 07/01 - Risperidone increased to 1mg POq4h prn - if higher dosage remains ineffective, will likely trial haloperidol to target his ongoing hallucinations - Pt remains agreeable to medications, though does not believe they will be beneficial - Fasting glucose slightly elevated at 103; lipid panel is WNL - Folic acid and B12 are WNL - Heavy metals is pending 07/03 -Risperidone was discontinued yesterday in favor of aripiprazole 5 mg. The patient indicated that he tolerated aripiprazole, and notes no side effects from it. However, he continues to demonstrate psychotic features. Specifically, his thought content includes paranoid and persecutory beliefs that he is at risk of being "shot" between the eyes by persons unseen. He also reports that he continues to hear persecutory and depreciating "voices," and indicates that these have not improved. -Today, we will be increasing his dose of aripiprazole to a dose of 10 mg daily to address psychosis and, hopefully, as an adjunct to sertraline. 07/04 - No profound benefit observed with titration of aripiprazole - patient denies any observed changes at this time. He continues to demonstrate psychotic features. Before entirely adjusting his scheduled medications, we will trial a one-time dose of perphenazine 8mg. If patient observes benefit - can consider 8mg BID dosing, with titration as tolerated. If no profound changes, would suggest titrating aripiprazole to 20mg as a consideration. 07/05 - Pt had refused his medications this morning, and reported perphenazine 8mg last evening was not overly helpful. Although it would be suggested that his dose of perphenazine be titrated, the patient is unwilling to continue the medication because it is "too many pills". As the alternative is patient likely discontinuing medications even without relief of symptoms - this provider is suggesting return to aripiprazole with titration of the dose to 15mg today. Can continue titration of the medication as tolerated until his symptoms improve 07/06 -We have discontinued perphenazine. It is not clear if perphenazine would or would not of help to him, but because it only comes from the pharmacy currently and 2 mg strength, and because the patient verbalizes distressed about the number of pills he is having to take (within the context of the fact that he generally does not take any medications at all) and we have decided to discontinue perphenazine and return to aripiprazole - -The patient's dose of aripiprazole is being increased to a dose of 20 mg a day. The patient was advised accordingly. -At least part of the issue in this case is that the patient's psychosis tends to lead to worsening anxiety, and there appears to be a " loop" of sorts between anxious distress and the intensity of the auditory hallucinations. Accordingly, we are offering the patient a trial of clonazepam 0.5 mg today to see if this might help reduce his anxiety and, therefore, reduce the degree to which he focuses on the distress associated with the content of the auditory hallucinations that he is continuing to experience.. 07/08--has been refusing adequate doses of Abilify and Zoloft so essentially self tapered. Positive response to Haldol and he is willing to take 5 mg q HS. 07/09--continue Haldol 07/10--continue haloperidol 5mg, as patient is improving. Continue to work on reality testing. --Explore disposition options, including staying with his daughter, other friends or family, independent living (application for [address]), and local fpc. --Refer for outpatient psychiatric care. (3) Alcohol abuse: 06/30 - Pt reports rather significant history of alcohol abuse. States he has not been drinking for several days prior to admission. - Vitals every shift, with close observation for signs of withdrawal - can or lisset AWSS protocol if needed - Pt unable to participate in intervention at this time, can readdress when more appropriate 07/01 - Continue vitals every shift - no significant change to suggest AWSS is necessary at this time 07/03 -The patient currently acknowledges that he was at one time a very heavy drinker and consumed whiskey as well as "may be 12 beers" a day. However, he reports that his alcohol consumption has more typically been "may be 2 beers a day, but not even every day." He has shown no signs of alcohol withdrawal. 07/06 -There appears to possibly be discrepancy between what the patient reports as his typical alcohol consumption amount and what his son suggests may be as alcohol usage pattern. The son acknowledges that he is not sure that he is aware of his father's drinking habits, and suggests that he that his father sometimes will talk about "going down to the store" and returning him with beer. According to 1 report, the patient may be drinking as much as 30 beers over the course of a day or 2. When we talk to the patient about this, he laughed and assured us that he not only could not drink that many beers if he tried to, he could not afford to buy that many beers. He insists that he typically drinks 2, 3, or maybe 4 beers a day, but not every day. He acknowledges that on occasion he may drink a 6 pack, but he says he does not drink more than that and has not consumed alcohol in greater amounts for a number of years. (4) Depression: 07/03 -The patient continues to report depression. His eyes well up when he is talking about his late , a woman who in her 50s approximately 11 years ago of heart disease following open heart surgery. The patient continues to describe his in glowing terms, and tells us that she was "very sweet" and "very kind." He also notes that he is continuing to miss her on a daily basis. He also discusses his feelings about having his mfoxvhxw-qe-qxr insist upon his returning the car that he has been using because it belongs to the son and hmykbtdn-az-uwd. (We do not know if this is true, and the son has given no indication that it is.) -Sertraline was added at 50 mg daily. The patient reports that he has had no trouble tolerating it, and plan will be to increase his dose to 100 mg a day beginning tomorrow, provided that no significant side effects emerge during the balance of today. -As noted above, aripiprazole 5 mg daily was added both for psychosis and, hopefully, as an adjunct for sertraline. The dose of aripiprazole is being increased to 10 mg daily (with an additional 5 mg dose this evening) because of persistent auditory hallucinations and delusional thought content. 07/05 - Continue medication regimen as above - as focus of today's conversation was adjusting his antipsychotic medication - we did not discuss adjustments to his dose of sertraline. Consider titration of the medication to 150mg if patient is willing to continue. 07/06 -We are increasing his dose of sertraline from 100 mg a day to 150 mg a day. His working diagnosis remains major depressive disorder, severe, with psychotic features. The content of his hallucinations is mood congruent with depression. He endorses feelings of depression, and are hope is that he will respond favorably to antidepressant medications so that his psychotic features will res olve. -We will entertain the possibility of trying a different antidepressant medication if the patient continues to do not show much favorable response to sertraline. Inventory Assets Strengths: willingness for treatment, supportive family Needs: additional medical work-up, gather collateral information, initiation of medication to allow for resolution of hallucinations Risk Factors Assessment Male: Yes : Yes Do You Have Access To A Gun?: Yes (gives convoluted report, but ultimately admits to having access) Health Problems: No Mental Health Diagnoses: No Substance Use Disorders: Yes Previous Attempt: No Family History of Suicide: No Previous Psychiatric Hospitalization: No Hopelessness: No Protective Factors Assessment [employer] Beliefs: No : No Responsible for Young Children: No Employed: No (retired) Stable Relationships: No Supportive Family: Yes Interval History Identifying Information KRISHNA CERVANTES is a 73-year-old M who reports he has been living in a car for the past 2 months, having previously lived with his son and lidxzqcy-hy-ezk for the past 5 years. Pt has no known psychiatric history but was admitted on 06/29/19 22:08 on a 201 voluntary commitment for reports of auditory/visual hallucinations, paranoia, disorganization, and inability to care for self. Chief Complaint "When I first come in, I heard voices all the time, don't hear them so much now". Review of Systems Sleep Information Total Hours of Sleep: 6.5 Sleep Comments: pt on q-15 minute checks Meal Information Percent Meal Consumed - Breakfast: 50 Percent Meal Consumed - Lunch: 100 Percent Meal Consumed - Dinner: 100 Nutrition Comment: per meal record Subjective Subjective Patient was seen & assessed and interval progress reviewed with treatment team. Staff report he applied for housing at [facility], although finances are a concern. He is reporting some insight into the voices and that they might be hallucinations. He has been out of his room and going to groups. He has been resistant to taking medications, but agreed to take one tab of Haldol (5mg). Today he was seen with Trace Sinclair, MS3, with his permission. He reports that he continues to hear voices daily, although it is less frequent than on admission. He says they are saying "the same stuff," which he doesn't want to disclose. He remains convinced that they are his son's in-laws, and says he can't explain how he can hear them and others can't. He says his son "doesn't believe it," and recognizes that others think these are symptoms. He reports feeling "uneasy" with a roommate, but denies concerns that someone would hurt him here. He says it's "possible" that someone might try to hurt him if he were outside the hospital. His mood is "better," denies SI and HI, and sleep and appetite are improving. He thinks the Haldol is helping "some, with the voices." He says he has no idea where he'd go if he weren't in the hospital, as he thinks he would be "a burden" to his daughter if he stayed with her. He denies having any other options for friends or family he could stay with. He reports the voices are threatening to shoot him, but denies that they've been commanding him to harm others. Physical Exam Psychiatric Orientation: alert and cooperative Apperance: appropriately dressed, appropriately groomed and appeared stated age Poor dentition, seated in NAD, arms crossed over chest. Eye Contact: + poor eye contact Motor Behavior: steady gait and station and no abnormal motor movements Speech: normal rate/rhythm/volume of speech Affect: + depressed affect and + constricted affect; + mood not congruent with affect "Better." Thought Process: goal directed thought process Thought Content: + paranoid, + delusions, + persecution and + guilt Paucity of thought content. Suicidal Thoughts: denies suicidal thoughts Homicidal Thoughts: denies homicidal thoughts But AH of voices telling him they are going to kill him. Hallucinations: + auditory hallucinations Cognition: recent memory grossly intact, attention grossly intact and language grossly intact Estimated Intelligence: consistent with education level Insight: + limited insight Judgement: + limited judgement Vital Signs (Past 24 Hours) Last Vital Signs Temp 36.5 C 07/10/19 06:56 Pulse 77 07/10/19 06:57 Resp 18 07/10/19 06:56 BP 114/64 07/10/19 06:57 Pulse Ox 98 06/29/19 22:17 Results & Data Current Inpatient Medications Current Inpatient Medications: Current Inpatient Medications Acetaminophen (Tylenol) 650 mg PO Q4H PRN PRN Reason: Headache or Minor Fever Stop: 07/29/19 21:24 Al Hydrox/Mg Hydrox/Simethicone (Maalox) 30 ml PO Q4H PRN PRN Reason: GI Upset Stop: 07/29/19 21:24 Bismuth Subsalicylate (Kaopectate) 15 ml PO PRN PRN PRN Reason: Loose Stool Stop: 07/29/19 21:24 Haloperidol (Haldol) 5 mg PO Q6H PRN PRN Reason: psychosis/agitation Stop: 07/31/19 14:21 Last Admin: 07/07/19 20:57 Dose: 5 mg Documented by: Haloperidol (Haldol) 5 mg PO HS CHAD Stop: 08/07/19 21:59 Last Admin: 07/09/19 20:37 Dose: 5 mg Documented by: Hydroxyzine HCl (Vistaril) 25 mg PO Q4H PRN PRN Reason: Anxiety Stop: 07/29/19 21:24 Hydroxyzine HCl (Vistaril) 50 mg PO HSZ PRN PRN Reason: Insomnia Stop: 07/29/19 21:24 Magnesium Hydroxide (Milk Of Magnesia) 30 ml PO DAILY PRN PRN Reason: Heartburn Stop: 07/29/19 21:24 Nicotine Polacrilex (Nicorette 2mg) 1 piece MT PRN PRN PRN Reason: nicotine cravings Stop: 07/30/19 14:12 Last Admin: 06/30/19 14:47 Dose: 1 piece Documented by: Sodium Chloride ([place] Nasal) 1 - 2 sprays NA PRN PRN PRN Reason: Nasal Dryness/Congestion Stop: 07/29/19 21:24 Mental Health & Subst Abuse Tx Therapist Name of Therapist: None Food Technology Teacher Name of Food Technology Teacher: no providers Post Discharge Appointments Primary Care Physician Name Of Family Doctor: [facility] Date of Appointment with PCP: 07/19/19 Time of Appointment with PCP: 2:45pm Provider Appointment Comment: [facility] [place] [id number] CPT Code CPT Code 81436 (1) Psychosis Psychosis type: unspecified psychosis type Qualified Code(s): F29 - Unspecified psychosis not due to a substance or known physiological condition
[2019-07-10] MEDS: HALOPERIDOL 5 MG TAB PO SCH (21:27)
--- NOTE | 2019-07-11 08:42 | Psychiatric Progress Note ---
Date of Service July 11, 2019 Impression / Recommendations Impression 73-year-old male admitted voluntarily for inpatient psychiatric treatment for psychosis with auditory and visual hallucinations and paranoia. He demonstrated poor self-care, as he believed he was kicked out of his son's home and began living in his car, although this was part of his psychosis and not true per family. He has delusions that the persons who are monitoring him or who have him "under surveillance" are his zqpuoxan-fx-eyi's parents; i.e., the mother and sdoamn-by-xvw of his son, who also live with his son. Patient had a negative head CT in ED and although he initially refused an MRI as part of cognitive work up, he is now agreeing to it. (1) Suicidal ideation: 06/30 - Denies intent to harm self, but admits to hearing commands to kill himself and others - Admitted to a locked inpatient behavioral health unit, on q15 minute safety checks - MNPR until safety can be adequately assessed - Encourage medication initiation/adjustments as indicated - Encourage participation in group and recreational therapies - Gather collateral information from outpatient providers - Suggest family meeting to involve outpatient supports in safety planning - Arrange appropriate aftercare 07/01 - Ongoing; both in that voices are telling him to hurt himself, and in that he is requesting assistance with ending his life - Continue MNPR until response to interventions is observed 07/02 - The patient reports that he is having no suicidal thoughts. He also focuses today on future plans, such as finding a place to live. He notes that he thinks that his mind will be much relieved once he is able to locate a secure place to live. However, he also reports persistent auditory hallucinations, continues to harbor the belief that he is being persecuted by others and, in particular, by his targmzwv-tr-hce's parents, and he remains in need of inpatient psychiatric hospitalization because of his ongoing difficulty maintaining adequate oral intake and performing activities of daily living without the availability of 24-hour psychiatric services at the inpatient level of care. 07/03 - Today, the patient says that he does not intend to kill himself and although at times wishes that he were , he does not want to be and has decided that he would like to live. 07/04 - Pt does not verbalize active SI, but at one point in conversation about medication recommendations states "I'll try whatever, maybe one of them will kill me." He endorses ongoing hopelessness. 07/06 - The patient reports that he is not having any suicidal thoughts, although he acknowledges that he is very distressed by "all of the things that are going on." - The patient's son has confirmed that the guns that the patient had in his room have been locked in a safe, and the patient does not have access. 07/10 - Patient denying suicidal thoughts, but reports ongoing auditory hallucinations which tell him he will be killed and they want to shoot him. He continues to believe that these are the voices of his son's in-laws, and that they wish him harm. 07/11 - AH improving, willing to pursue discharge planning w/ going to stay with daughter briefly while applying for [facility]. (2) Psychosis: 06/30 - Very wide differential for this patient, as his presentation of psychosis is not typical given his age and lack of prior psychiatric history. - Gather collateral information from patient's family - Encourage use of risperidone 0.5mg q4h prn psychosis/anxiety - Fasting glucose and lipid panel ordered for tomorrow morning - Will attempt to further rule out organic cause of psychosis with additional blood work: B12, folic acid, heavy metals - Will be ideal for patient to have an MRI after discharge, as it is possible the patient's condition is organic in nature. Attempts to have an MRI prior to admission were not successful. 07/01 - Risperidone increased to 1mg POq4h prn - if higher dosage remains ineffective, will likely trial haloperidol to target his ongoing hallucinations - Pt remains agreeable to medications, though does not believe they will be beneficial - Fasting glucose slightly elevated at 103; lipid panel is WNL - Folic acid and B12 are WNL - Heavy metals is pending 07/03 -Risperidone was discontinued yesterday in favor of aripiprazole 5 mg. The patient indicated that he tolerated aripiprazole, and notes no side effects from it. However, he continues to demonstrate psychotic features. Specifically, his thought content includes paranoid and persecutory beliefs that he is at risk of being "shot" between the eyes by persons unseen. He also reports that he continues to hear persecutory and depreciating "voices," and indicates that these have not improved. -Today, we will be increasing his dose of aripiprazole to a dose of 10 mg daily to address psychosis and, hopefully, as an adjunct to sertraline. 07/04 - No profound benefit observed with titration of aripiprazole - patient denies any observed changes at this time. He continues to demonstrate psychotic features. Before entirely adjusting his scheduled medications, we will trial a one-time dose of perphenazine 8mg. If patient observes benefit - can consider 8mg BID dosing, with titration as tolerated. If no profound changes, would suggest titrating aripiprazole to 20mg as a consideration. 07/05 - Pt had refused his medications this morning, and reported perphenazine 8mg last evening was not overly helpful. Although it would be suggested that his dose of perphenazine be titrated, the patient is unwilling to continue the medication because it is "too many pills". As the alternative is patient likely discontinuing medications even without relief of symptoms - this provider is suggesting return to aripiprazole with titration of the dose to 15mg today. Can continue titration of the medication as tolerated until his symptoms improve 07/06 -We have discontinued perphenazine. It is not clear if perphenazine would or would not of help to him, but because it only comes from the pharmacy currently and 2 mg strength, and because the patient verbalizes distressed about the number of pills he is having to take (within the context of the fact that he generally does not take any medications at all) and we have decided to discontinue perphenazine and return to aripiprazole - -The patient's dose of aripiprazole is being increased to a dose of 20 mg a day. The patient was advised accordingly. -At least part of the issue in this case is that the patient's psychosis tends to lead to worsening anxiety, and there appears to be a " loop" of sorts between anxious distress and the intensity of the auditory hallucinations. Accordingly, we are offering the patient a trial of clonazepam 0.5 mg today to see if this might help reduce his anxiety and, therefore, reduce the degree to which he focuses on the distress associated with the content of the auditory hallucinations that he is continuing to experience.. 07/08--has been refusing adequate doses of Abilify and Zoloft so essentially self tapered. Positive response to Haldol and he is willing to take 5 mg q HS. 07/09--continue Haldol 9/3--continue haloperidol 5mg, as patient is improving. Continue to work on reality testing. --Explore disposition options, including staying with his daughter, other friends or family, independent living (application for [address]), and local penitentiary. --Refer for outpatient psychiatric care. (3) Alcohol abuse: 06/30 - Pt reports rather significant history of alcohol abuse. States he has not been drinking for several days prior to admission. - Vitals every shift, with close observation for signs of withdrawal - can order AWSS protocol if needed - Pt unable to participate in intervention at this time, can readdress when more appropriate 07/01 - Continue vitals every shift - no significant change to suggest AWSS is necessary at this time 07/03 -The patient currently acknowledges that he was at one time a very heavy drinker and consumed whiskey as well as "may be 12 beers" a day. However, he reports that his alcohol consumption has more typically been "may be 2 beers a day, but not even every day." He has shown no signs of alcohol withdrawal. 07/06 -There appears to possibly be discrepancy between what the patient reports as his typical alcohol consumption amount and what his son suggests may be as alcohol usage pattern. The son acknowledges that he is not sure that he is aware of his father's drinking habits, and suggests that he that his father sometimes will talk about "going down to the store" and returning him with beer. According to 1 report, the patient may be drinking as much as 30 beers over the course of a day or 2. When we talk to the patient about this, he laughed and assured us that he not only could not drink that many beers if he tried to, he could not afford to buy that many beers. He insists that he typically drinks 2, 3, or maybe 4 beers a day, but not every day. He acknowledges that on occasion he may drink a 6 pack, but he says he does not drink more than that and has not consumed alcohol in greater amounts for a number of years. (4) Depression: 07/03 -The patient continues to report depression. His eyes well up when he is talking about his late , a woman who in her 50s approximately 11 years ago of heart disease following open heart surgery. The patient continues to describe his in glowing terms, and tells us that she was "very sweet" and "very kind." He also notes that he is continuing to miss her on a daily basis. He also discusses his feelings about having his mmagipmj-ar-zqh insist upon his returning the car that he has been using because it belongs to the son and gtqssbwy-tv-lpa. (We do not know if this is true, and the son has given no indication that it is.) -Sertraline was added at 50 mg daily. The patient reports that he has had no trouble tolerating it, and plan will be to increase his dose to 100 mg a day beginning tomorrow, provided that no significant side effects emerge during the balance of today. -As noted above, aripiprazole 5 mg daily was added both for psychosis and, hopefully, as an adjunct for sertraline. The dose of aripiprazole is being increased to 10 mg daily (with an additional 5 mg dose this evening) because of persistent auditory hallucinations and delusional thought content. 07/05 - Continue medication regimen as above - as focus of today's conversation was adjusting his antipsychotic medication - we did not discuss adjustments to his dose of sertraline. Consider titration of the medication to 150mg if patient is willing to continue. 07/06 -We are increasing his dose of sertraline from 100 mg a day to 150 mg a day. His working diagnosis remains major depressive disorder, severe, with psychotic features. The content of his hallucinations is mood congruent with depression. He endorses feelings of depression, and are hope is that he will respond favorably to antidepressant medications so that his psychotic features will resolve. -We will entertain the possibility of trying a different antidepressant medication if the patient continues to do not show much favorable response to sertraline. 07/11 - Patient refused sertraline for several days and it was ultimately discontinued 07/09. He is reporting good mood, although still appears blunted and possibly depressed. Continue to monitor. Inventory Assets Strengths: willingness for treatment, supportive family Needs: additional medical work-up, gather collateral information, initiation of medication to allow for resolution of hallucinations Risk Factors Assessment Male: Yes : Yes Do You Have Access To A Gun?: Yes (gives convoluted report, but ultimately admits to having access) Health Problems: No Mental Health Diagnoses: No Substance Use Disorders: Yes Previous Attempt: No Family History of Suicide: No Previous Psychiatric Hospitalization: No Hopelessness: No Protective Factors Assessment Bahai Beliefs: No : No Responsible for Young Children: No Employed: No (retired) Stable Relationships: No Supportive Family: Yes Interval History Identifying Information KRISHNA CERVANTES is a 73-year-old M who reports he has been living in a car for the past 2 months, having previously lived with his son and xbyoasfv-sh-ybk for the past 5 years. Pt has no known psychiatric history but was admitted on 06/29/19 22:08 on a 201 voluntary commitment for reports of auditory/visual hallucinations, paranoia, disorganization, and inability to care for self. Chief Complaint "Alright". Review of Systems Notes Denies GI symptoms, problems with sleep Sleep Information Total Hours of Sleep: 7 Sleep Comments: pt on q-15 minute checks Meal Information Percent Meal Consumed - Breakfast: 100 Percent Meal Consumed - Lunch: 100 Percent Meal Consumed - Dinner: 100 Nutrition Comment: per meal record Subjective Subjective Patient was seen & assessed and interval progress reviewed with treatment team. Staff report he met with his son and the social scientist, and remains unwilling to return to live with his son due to beliefs that he is being monitored and targeted by his son's in-laws, although his son maintains this is untrue. He did agree to get a brain MRI as recommended, and his son asked that it be done here as the patient is unlikely to follow up as an outpatient. His son did take the car back, as it is his. He continues to say he can't live with his daughter as it would be a burden. His granddaughter assisted with his [facility] application. Today he was seen with Trace Sinclair, MS2, and Yuri Santana, MS2, with his permission. He reports mood is "good," and says he met with his son today and they talked about how to get the money to apply for [address] (needed a money order). He remains hopeful about his housing, but still doesn't want to consider returning to his son's house, although willing to consider staying with his daughter. He says that "it wouldn't work" to return to live with his son, "because of his in-laws." He says they've been living there for a couple years and "just complain all the time, they're in too close proximity, I could hear them and they could hear me, it just didn't work." He continues to hear AH of voices but says it is less intense and frequent, and he feels less worried about it. He doesn't plan to see his son's in-laws anymore, although says they do have family events at times. He is taking Haldol and thinks it is helping, stating he never took medications before and is "ok taking just one pill, but not 4 or 5 pills." He denies side effects, and reports improved sleep and appetite. He denies SI and HI. Physical Exam Psychiatric Orientation: alert, oriented x 3 and cooperative Apperance: appropriately dressed and appeared stated age poor dentition, white hair and pringle Eye Contact: good eye contact Motor Behavior: steady gait and station and no abnormal motor movements Speech: normal rate/rhythm/volume of speech Affect: + blunted affect "alright" Thought Process: goal directed thought process Thought Content: + cognitive distortions Suicidal Thoughts: denies suicidal thoughts Homicidal Thoughts: denies homicidal thoughts Hallucinations: + auditory hallucinations Cognition: recent memory grossly intact and language grossly intact Insight: + impaired insight Judgement: + fair judgement Vital Signs (Past 24 Hours) Last Vital Signs Temp 36.3 C L 07/11/19 07:02 Pulse 80 07/11/19 07:03 Resp 18 07/11/19 07:02 BP 106/65 07/11/19 07:03 Pulse Ox 98 06/29/19 22:17 Results & Data Current Inpatient Medications Current Inpatient Medications: Current Inpatient Medications Acetaminophen (Tylenol) 650 mg PO Q4H PRN PRN Reason: Headache or Minor Fever Stop: 07/29/19 21:24 Al Hydrox/Mg Hydrox/Simethicone (Maalox) 30 ml PO Q4H PRN PRN Reason: GI Upset Stop: 07/29/19 21:24 Bismuth Subsalicylate (Kaopectate) 15 ml PO PRN PRN PRN Reason: Loose Stool Stop: 07/29/19 21:24 Haloperidol (Haldol) 5 mg PO Q6H PRN PRN Reason: psychosis/agitation Stop: 07/31/19 14:21 Last Admin: 07/07/19 20:57 Dose: 5 mg Documented by: Haloperidol (Haldol) 5 mg PO [facility] Stop: 08/07/19 21:59 Last Admin: 07/10/19 21:27 Dose: 5 mg Documented by: Hydroxyzine HCl (Vistaril) 25 mg PO Q4H PRN PRN Reason: Anxiety Stop: 07/29/19 21:24 Hydroxyzine HCl (Vistaril) 50 mg PO HSZ PRN PRN Reason: Insomnia Stop: 07/29/19 21:24 Magnesium Hydroxide (Milk Of Magnesia) 30 ml PO DAILY PRN PRN Reason: Heartburn Stop: 07/29/19 21:24 Nicotine Polacrilex (Nicorette 2mg) 1 piece MT PRN PRN PRN Reason: nicotine cravings Stop: 07/30/19 14:12 Last Admin: 06/30/19 14:47 Dose: 1 piece Documented by: Sodium Chloride ([place] Nasal) 1 - 2 sprays NA PRN PRN PRN Reason: Nasal Dryness/Congestion Stop: 07/29/19 21:24 Mental Health & Subst Abuse Tx Psychiatrist Name of Psychiatrist: Jacqui Golden Psychiatrist's Date of Appointment with Psychiatrist: 07/20/19 Time of Appointment with Psychiatrist: 9am Therapist Name of Therapist: None Malted Milk Supervisor Name of Malted Milk Supervisor: no providers Post Discharge Appointments Primary Care Physician Name Of Family Doctor: [facility] Date of Appointment with PCP: 07/19/19 Time of Appointment with PCP: 2:45pm Provider Appointment Comment: [address] [place] [address] [place] [address] Contact Information Discharge CPT Code CPT Code 94211 (1) Psychosis Psychosis type: unspecified psychosis type Qualified Code(s): F29 - Unspecified psychosis not due to a substance or known physiological condition
[2019-07-11] MEDS ORDERED: LORazepam 1 MG TAB PO SCH (13:00)
[2019-07-11] MEDS ORDERED: GADOBUTROL 65ML VIAL IV PRN (20:58)
--- NOTE | 2019-07-11 21:07 | Magnetic Resonance Report ---
MR brain wo/w con CLINICAL HISTORY: 73 years-old Male presenting with new onset psychosis over last 2 months, dizziness , imbalance. TECHNIQUE: Multisequence, multiplanar MR imaging of the brain was performed before and after the admi nistration of intravenous contrast. IV contrast: 8 mL of Gadavist. COMPARISON: Noncontrast CT head from 06/29/2019. FINDINGS: Localizer images: Unremarkable. Bone marrow signal intensity within the calvarium within normal limits. Normal midline sagittal structures. Proportional ventricular and sulcal prominence, likely age-relate d parenchymal volume loss. No mass effect or midline shift. No restricted diffusion or hemorrhage. Pe riventricular and subcortical white matter T2/FLAIR hyperintensity, nonspecific but likely indicative of chronic small vessel ischemic change. No abnormal parenchymal enhancement. No extra-axial fluid collection. T2 skull base flow voids preserved. Bilateral eyak lenses are abse nt. IMPRESSION: 1. Periventricular and subcortical white matter T2/FLAIR hyperintensity, nonspecific but likely maryann cative of chronic small vessel ischemic change. No abnormal parenchymal enhancement. Electronically signed by: Jose E Lerma M.D. 07/11/2019 9:06 PM
[2019-07-11] MEDS: HALOPERIDOL 5 MG TAB PO SCH (21:21)
[2019-07-12 07:04] VITALS: BP 123/73; TEMP 97.9
--- NOTE | 2019-07-12 08:32 | Discharge Summary ---
Date of Service July 12, 2019 History of Present Illness Sriram Conner (Russ)r is a 73-year-old male admitted voluntarily for inpatient psychiatric treatment due to onset of hallucinations and paranoia in the past "couple months." Pt was reportedly living out of his car recently, and has demonstrated an inability to care for himself. Pt had reported the voices he hears are giving commands to harm both himself and others. Pt's son was present in the ED and confirmed that this is behavior that he has not previously noticed in his father, with whom he had been living for several years. Pt is agreeable to evaluation today; however, he reports he is concerned as "they are listening in now." Pt states that he believes he is being "monitored" by "them" - having people listening in on his conversations. Pt states the voices began about 2 months prior to his admission, and have informed him that they will continue to monitor him "for the rest of my life, they told me they would be with me til I ." Pt's best explanation of the voices' onset is - "They said they're getting back at me after I threatened Maddy's [DIL] parents." Pt reports that he had been living in a "rented room in my son's basement", and that "my [id number]'s parents lived across the stairs. They were talking about me, I could hear them." Pt states initially that he did not confront the individuals, but then later contradicts himself by reporting "I told them they're kimo I don't shoot them." Pt states that the current voices did not begin immediately after the situation, but with a "break in between." Pt reports hearing at least 6 voices, both male and female. He states they occur both individually and "altogether." When asked if there is any place he finds retreat from the voices, he states, "I haven't found it yet." Pt admits that they are listening in on the evaluation, and that they are "interrupting us." He states he is being told to "take my phone and put it in a dumpster." After making this statement, the patient huffs and shakes his head. He states they have been in his room since his admission and "even monitor me in the bathroom." When asked what patient feels he needs from this admission, he states, "You could help me figure out who these guys are, that way I can take t hem to court or have them arrested or something." When offered medication that could help the voices to lessen and allow him to think clearly, the patient states "ME taking a medication is going to make THEM go away, mendoza! They said they'll be here for the rest of my life." He does admit that they are telling him to harm himself - "like drive myself between two semis, or shoot myself between the eyes." Pt denies today that he has been told to harm others, but also shares with this provider that things the voices say are "things I can't repeat." In the ED, he did admit to hearing commands to harm others. Pt reports his mood has been lower that usual, but reports it is in the context of these voices. He states he has not been sleeping well, also blaming his difficulty falling and staying asleep on "the surveillance." Pt states he continues to have an appetite and is "hungry", but that he has not been eating as much since he has been living in his car. Pt believes he has been evicted from his son's house, which we were informed is not the case. Pt admits to difficulty concentrating because of the voices. He reports paranoia. Pt denies any prior history of psychiatric concerns. He has never been hospitalized for mental health conditions or was seen for counseling. He admits to consuming beer - 2-3 cans daily, for "mendoza, all my life." Pt states he has not had a drink in about 3-4 days. He denies use of illicit substances. Physical Exam Psychiatric Orientation: alert and cooperative Apperance: appropriately dressed, appropriately groomed and appeared stated age Eye Contact: good eye contact Motor Behavior: steady gait and station and no abnormal motor movements Speech: normal rate/rhythm/volume of speech Affect: + blunted affect "Good now." Thought Process: goal directed thought process Thought Content: reality based without delusions Suicidal Thoughts: denies suicidal thoughts Homicidal Thoughts: denies homicidal thoughts Hallucinations: no auditory hallucinations Cognition: recent memory grossly intact, attention grossly intact and language grossly intact Insight: + fair insight Judgement: + fair judgement Vital Signs (Past 24 Hours) Last Vital Signs Temp 36.6 C 07/12/19 07:03 Pulse 86 07/12/19 07:03 Resp 18 07/12/19 07:03 BP 123/73 07/12/19 07:03 Pulse Ox 98 06/29/19 22:17 Principal Diagnosis Psychosis NOS Rule out depression Psychiatric Data Patient was hospitalized on our unit for 13 days. On admission, he was psychotic with delusions of persecution and auditory hallucinations of voices that he thought were his son's in-laws. This had led him to leave the home and he had been living in his car for the past 2 months, not caring for his personal hygiene or having adequate food to eat. He lacked insight and was unwilling to consider these experiences as psychiatric symptoms or to take medication. He continued to report suicidal thoughts and was requesting assistance to end his life. He was initially started on risperidone, and then switched to aripiprazole after a couple of days, which was titrated to 10 mg. He did not appear effective after a couple of days, so he was switched to perphenazine, which was also ineffective, and he was not willing to continue dose titration due to the large number of pills he would need to take, as the hospital only stocks 2 mg tabs. He was therefore switched to haloperidol, which he tolerated well, and was pleased that he only had to take one 5 mg tab. His psychotic symptoms gradually improved and ultimately resolved. He continued to report on the ease about his son's in-laws, stating that they "complain all the time, they're in too close proximity, I could hear them and they could hear me, it just didn't work." He denied concerns that they were monitoring him or wished him harm, and made a plan to stay with his daughter temporarily while applying for independent housing at [address]. He had a brain MRI on 07/11/2019 due to first episode psychosis. He had meetings with his son and daughter throughout his stay, who are supportive. He was assisted to reschedule a dental appointment he had in order to get his teeth pulled that he missed while he was in the hospital. He agreed to referral for outpatient psychiatric care and to a PCP, but not to therapy. Day of Discharge Assessment Patient was seen today with Yuri Santana S2 and Trace Sinclair MS2. He reports he feels ready for discharge, and is willing to stay with his daughter while looking for permanent independent housing. He reports good mood, improved sleep and appetite, and denies safety concerns. He is no longer concerns that he is under surveillance or is at risk of harm from others. He does not plan to see his son's in-laws, but indicates he would not be concerned if he did run into them. He is tolerating haloperidol well and agreeing to outpatient treatment. We reviewed the results of his brain MRI. He is requesting discharge today. Transition of Care Transition Of Care Record: was reviewed with the patient Advance Directives Advance Directives Information Provided: Yes Advance Directives: No Mental Health Advance Directive: No Advance Directives on File: No Living Will: No Power of Vet Tech: No Advance Directives Reason:: Declines as Mental Health Visit. Risk Factors Assessment Risk factors were mitigated by admission to the inpatient unit, use of medications to treat psychotic symptoms, education about his diagnoses and the recommended treatment, involvement in groups and therapy, family meetings with his adult children, working on healthy coping skills and discharge safety plan, and referral for out patient treatment. Psychotic symptoms have resolved, suicidal ideation has resolved, he is reporting good mood and tending to ADLs, taking medications as prescribed, and stating willingness to follow up with outpatient treatment. He is requesting discharge, and denies acute safety concerns. As he is no longer at imminent risk of harm to himself or others, he can be managed as an outpatient at this time. He has not endorsed thoughts to harm others here, and there is no known history of violence. Male: Yes : Yes Do You Have Access To A Gun?: Yes (gives convoluted report, but ultimately admits to having access) Health Problems: No Mental Health Diagnoses: No Substance Use Disorders: Yes Previous Attempt: No Family History of Suicide: No Previous Psychiatric Hospitalization: No Hopelessness: No Protective Factors Assessment Mandaeism Beliefs: No : No Responsible for Young Children: No Employed: No (retired) Stable Relationships: No Supportive Family: Yes Tobacco Cessation at Discharge Tobacco Cessation Medication Prescribed at Discharge: Not Applicable/Non-Smoker Total Time Total Time Spent: Greater Than 30 Minutes Total Time Includes: Examination of the patient, Discharge Planning and Medication Reconciliation Discharge Data Lab Results 06/29/19 06/29/19 06/29/19 15:47 15:47 16:04 WBC 9.36 RBC 4.86 Hgb 16.0 Hct 44.7 MCV 92.0 MCH 32.9 MCHC 35.8 RDW Std Deviation 43.3 RDW Coeff of Mavis 12.8 Plt Count 213 MPV 8.2 Immature Gran % (Auto) 0.3 Neut % (Auto) 75.3 Lymph % (Auto) 12.2 Cabell % (Auto) 11.6 Eos % (Auto) 0.3 Baso % (Auto) 0.3 Immature Gran # (Auto) 0.03 H Neut # (Auto) 7.04 H Lymph # (Auto) 1.14 L Cabell # (Auto) 1.09 H Eos # (Auto) 0.03 Baso # (Auto) 0.03 Sodium Potassium Chloride Carbon Dioxide Anion Gap BUN Creatinine Est Cr Clr Drug Dosing Est GFR ( Amer) Est GFR (Non-Af Amer) BUN/Creatinine Ratio Glucose Fasting Glucose Calcium Total Bilirubin AST ALT Alkaline Phosphatase Total Protein Albumin Globulin Albumin/Globulin Ratio Triglycerides Cholesterol LDL Cholesterol, Calc VLDL Cholesterol, Calc HDL Cholesterol Cholesterol/HDL Ratio Vitamin B12 Folate TSH Urine Color Dark Yellow Urine Appearance Clear Urine pH 5.0 Ur Specific Clay 1.032 H Urine Protein 1+ H Urine Glucose (UA) Negative Urine Ketones Trace H Urine Blood Negative Urine Nitrite Negative Urine Bilirubin Negative Urine Urobilinogen Negative Ur Leukocyte Esterase Negative Urine WBC (Auto) 1-5 Urine RBC (Auto) 0-4 U Hyaline Cast (Auto) 5-10 H U Epithel Cells (Auto) 10-20 H Urine Bacteria (Auto) Negative Urine Mucus Present A Salicylates Urine Opiates Screen Neg Ur Methadone, Qual Neg Acetaminophen Urine Barbiturates Neg Ur Phencyclidine (PCP) Neg U Amphetamin/Meth Scrn Neg MDMA (Ecstasy) Screen Neg U Benzodiazepines Scrn Neg Ur Cocaine Metabolite Neg U Marijuana (THC) Screen Neg Ethyl Alcohol mg/dL Heavy Metal Source Arsenic Lead Mercury Lyme Disease IgG Ab Lyme Disease IgM Ab 06/29/19 06/29/19 06/29/19 16:04 16:04 16:04 WBC RBC Hgb Hct MCV MCH MCHC RDW Std Deviation RDW Coeff of Mavis Plt Count MPV Immature Gran % (Auto) Neut % (Auto) Lymph % (Auto) Cabell % (Auto) Eos % (Auto) Baso % (Auto) Immature Gran # (Auto) Neut # (Auto) Lymph # (Auto) Cabell # (Auto) Eos # (Auto) Baso # (Auto) Sodium 136 Potassium 4.0 Chloride 102 Carbon Dioxide 27 Anion Gap 8.0 BUN 24 H Creatinine 1.17 Est Cr Clr Drug Dosing 63.5 Est GFR ( Amer) 71.3 Est GFR (Non-Af Amer) 61.5 BUN/Creatinine Ratio 20.8 H Glucose 106 H Fasting Glucose Calcium 9.7 Total Bilirubin 0.9 AST 18 ALT 19 Alkaline Phosphatase 76 Total Protein 7.8 Albumin 4.4 Globulin 3.4 Albumin/Globulin Ratio 1.3 Triglycerides Cholesterol LDL Cholesterol, Calc VLDL Cholesterol, Calc HDL Cholesterol Cholesterol/HDL Ratio Vitamin B12 Folate TSH 2.570 Urine Color Urine Appearance Urine pH Ur Specific Clay Urine Protein Urine Glucose (UA) Urine Ketones Urine Blood Urine Nitrite Urine Bilirubin Urine Urobilinogen Ur Leukocyte Esterase Urine WBC (Auto) Urine RBC (Auto) U Hyaline Cast (Auto) U Epithel Cells (Auto) Urine Bacteria (Auto) Urine Mucus Salicylates < 1.7 L Urine Opiates Screen Ur Methadone, Qual Acetaminophen < 2 L Urine Barbiturates Ur Phencyclidine (PCP) U Amphetamin/Meth Scrn MDMA (Ecstasy) Screen U Benzodiazepines Scrn Ur Cocaine Metabolite U Marijuana (THC) Screen Ethyl Alcohol mg/dL < 3.0 Heavy Metal Source Arsenic Lead Mercury Lyme Disease IgG Ab Lyme Disease IgM Ab 07/01/19 07/01/19 07/01/19 07:22 07:22 07:54 WBC RBC Hgb Hct MCV MCH MCHC RDW Std Deviation RDW Coeff of Mavis Plt Count MPV Immature Gran % (Auto) Neut % (Auto) Lymph % (Auto) Cabell % (Auto) Eos % (Auto) Baso % (Auto) Immature Gran # (Auto) Neut # (Auto) Lymph # (Auto) Cabell # (Auto) Eos # (Auto) Baso # (Auto) Sodium Potassium Chloride Carbon Dioxide Anion Gap BUN Creatinine Est Cr Clr Drug Dosing Est GFR ( Amer) Est GFR (Non-Af Amer) BUN/Creatinine Ratio Glucose Fasting Glucose 103 H Calcium Total Bilirubin AST ALT Alkaline Phosphatase Total Protein Albumin Globulin Albumin/Globulin Ratio Triglycerides 68 Cholesterol 126 LDL Cholesterol, Calc 66 VLDL Cholesterol, Calc 14 HDL Cholesterol 46 Cholesterol/HDL Ratio 3 Vitamin B12 310 Folate 15.47 TSH Urine Color Urine Appearance Urine pH Ur Specific Clay Urine Protein Urine Glucose (UA) Urine Ketones Urine Blood Urine Nitrite Urine Bilirubin Urine Urobilinogen Ur Leukocyte Esterase Urine WBC (Auto) Urine RBC (Auto) U Hyaline Cast (Auto) U Epithel Cells (Auto) Urine Bacteria (Auto) Urine Mucus Salicylates Urine Opiates Screen Ur Methadone, Qual Acetaminophen Urine Barbiturates Ur Phencyclidine (PCP) U Amphetamin/Meth Scrn MDMA (Ecstasy) Screen U Benzodiazepines Scrn Ur Cocaine Metabolite U Marijuana (THC) Screen Ethyl Alcohol mg/dL Heavy Metal Source Venous Arsenic <3 Lead 2 Mercury <4 Lyme Disease IgG Ab Lyme Disease IgM Ab 07/03/19 08:51 WBC RBC Hgb Hct MCV MCH MCHC RDW Std Deviation RDW Coeff of Mavis Plt Count MPV Immature Gran % (Auto) Neut % (Auto) Lymph % (Auto) Cabell % (Auto) Eos % (Auto) Baso % (Auto) Immature Gran # (Auto) Neut # (Auto) Lymph # (Auto) Cabell # (Auto) Eos # (Auto) Baso # (Auto) Sodium Potassium Chloride Carbon Dioxide Anion Gap BUN Creatinine Est Cr Clr Drug Dosing Est GFR ( Amer) Est GFR (Non-Af Amer) BUN/Creatinine Ratio Glucose Fasting Glucose Calcium Total Bilirubin AST ALT Alkaline Phosphatase Total Protein Albumin Globulin Albumin/Globulin Ratio Triglycerides Cholesterol LDL Cholesterol, Calc VLDL Cholesterol, Calc HDL Cholesterol Cholesterol/HDL Ratio Vitamin B12 Folate TSH Urine Color Urine Appearance Urine pH Ur Specific Clay Urine Protein Urine Glucose (UA) Urine Ketones Urine Blood Urine Nitrite Urine Bilirubin Urine Urobilinogen Ur Leukocyte Esterase Urine WBC (Auto) Urine RBC (Auto) U Hyaline Cast (Auto) U Epithel Cells (Auto) Urine Bacteria (Auto) Urine Mucus Salicylates Urine Opiates Screen Ur Methadone, Qual Acetaminophen Urine Barbiturates Ur Phencyclidine (PCP) U Amphetamin/Meth Scrn MDMA (Ecstasy) Screen U Benzodiazepines Scrn Ur Cocaine Metabolite U Marijuana (THC) Screen Ethyl Alcohol mg/dL Heavy Metal Source Arsenic Lead Mercury Lyme Disease IgG Ab Negative Lyme Disease IgM Ab Negative Hospital Course (1) Suicidal ideation: 06/30 - Denies intent to harm self, but admits to hearing commands to kill himself and others - Admitted to a locked inpatient behavioral health unit, on q15 minute safety checks - MNPR until safety can be adequately assessed - Encourage medication initiation/adjustments as indicated - Encourage participation in group and recreational therapies - Gather collateral information from outpatient providers - Suggest family meeting to involve outpatient supports in safety planning - Arrange appropriate aftercare 07/01 - Ongoing; both in that voices are telling him to hurt himself, and in that he is requesting assistance with ending his life - Continue MNPR until response to interventions is observed 07/02 - The patient reports that he is having no suicidal thoughts. He also focuses today on future plans, such as finding a place to live. He notes that he thinks that his mind will be much relieved once he is able to locate a secure place to live. However, he also reports persistent auditory hallucinations, continues to harbor the belief that he is being persecuted by others and, in particular, by his [id number]'s parents, and he remains in need of inpatient psychiatric hospitalization because of his ongoing difficulty maintaining adequate oral intake and performing activities of daily living without the availability of 24-hour psychiatric services at the inpatient level of care. 07/03 - Today, the patient says that he does not intend to kill himself and although at times wishes that he were , he does not want to be and has decided that he would like to live. 07/04 - Pt does not verbalize active SI, but at one point in conversation about medication recommendations states "I'll try whatever, maybe one of them will kill me." He endorses ongoing hopelessness. 07/06 - The patient reports that he is not having any suicidal thoughts, although he acknowledges that he is very distressed by "all of the things that are going on." - The patient's son has confirmed that the guns that the patient had in his room have been locked in a safe, and the patient does not have access. 07/10 - Patient denying suicidal thoughts, but reports ongoing auditory hallucinations which tell him he will be killed and they want to shoot him. He continues to believe that these are the voices of his son's in-laws, and that they wish him harm. 07/11 - AH improving, willing to pursue discharge planning w/ going to stay with daughter briefly while applying for [address]. (2) Psychosis: 06/30 - Very wide differential for this patient, as his presentation of psychosis is not typical given his age and lack of prior psychiatric history. - Gather collateral information from patient's family - Encourage use of risperidone 0.5mg q4h prn psychosis/anxiety - Fasting glucose and lipid panel ordered for tomorrow morning - Will attempt to further rule out organic cause of psychosis with additional blood work: B12, folic acid, heavy metals - Will be ideal for patient to have an MRI after discharge, as it is possible the patient's condition is organic in nature. Attempts to have an MRI prior to admission were not successful. 07/01 - Risperidone increased to 1mg POq4h prn - if higher dosage remains ineffective, will likely trial haloperidol to target his ongoing hallucinations - Pt remains agreeable to medications, though does not believe they will be beneficial - Fasting glucose slightly elevated at 103; lipid panel is WNL - Folic acid and B12 are WNL - Heavy metals is pending 07/03 -Risperidone was discontinued yesterday in favor of aripiprazole 5 mg. The patient indicated that he tolerated aripiprazole, and notes no side effects from it. However, he continues to demonstrate psychotic features. Specifically, his thought content includes paranoid and persecutory beliefs that he is at risk of being "shot" between the eyes by persons unseen. He also reports that he continues to hear persecutory and depreciating "voices," and indicates that thes e have not improved. -Today, we will be increasing his dose of aripiprazole to a dose of 10 mg daily to address psychosis and, hopefully, as an adjunct to sertraline. 07/04 - No profound benefit observed with titration of aripiprazole - patient denies any observed changes at this time. He continues to demonstrate psychotic features. Before entirely adjusting his scheduled medications, we will trial a one-time dose of perphenazine 8mg. If patient observes benefit - can consider 8mg BID dosing, with titration as tolerated. If no profound changes, would suggest titrating aripiprazole to 20mg as a consideration. 07/05 - Pt had refused his medications this morning, and reported perphenazine 8mg last evening was not overly helpful. Although it would be suggested that his dose of perphenazine be titrated, the patient is unwilling to continue the medication because it is "too many pills". As the alternative is patient likely discontinuing medications even without relief of symptoms - this provider is suggesting return to aripiprazole with titration of the dose to 15mg today. Can continue titration of the medication as tolerated until his symptoms improve 07/06 -We have discontinued perphenazine. It is not clear if perphenazine would or would not of help to him, but because it only comes from the pharmacy currently and 2 mg strength, and because the patient verbalizes distressed about the number of pills he is having to take (within the context of the fact that he generally does not take any medications at all) and we have decided to discontinue perphenazine and return to aripiprazole - -The patient's dose of aripiprazole is being increased to a dose of 20 mg a day. The patient was advised accordingly. -At least part of the issue in this case is that the patient's psychosis tends to lead to worsening anxiety, and there appears to be a " loop" of sorts between anxious distress and the intensity of the auditory hallucinations. Accordingly, we are offering the patient a trial of clonazepam 0.5 mg today to see if this might help reduce his anxiety and, therefore, reduce the degree to which he focuses on the distress associated with the content of the auditory hallucinations that he is continuing to experience.. 07/08--has been refusing adequate doses of Abilify and Zoloft so essentially self tapered. Positive response to Haldol and he is willing to take 5 mg q HS. 07/09--continue Haldol 07/10--continue haloperidol 5mg, as patient is improving. Continue to work on reality testing. --Explore disposition options, including staying with his daughter, other f riends or family, independent living (application for [address]), and local senior living. --Refer for outpatient psychiatric care. 07/12 -patient reporting resolution of psychotic symptoms, tolerating Haldol well. Referred to [facility] for outpatient care. -Agrees to plan to stay with daughter temporarily while arranging independent housing. Requesting discharge, daughter in agreement. (3) Alcohol abuse: 06/30 - Pt reports rather significant history of alcohol abuse. States he has not been drinking for several days prior to admission. - Vitals every shift, with close observation for signs of withdrawal - can order AWSS protocol if needed - Pt unable to participate in intervention at this time, can readdress when more appropriate 07/01 - Continue vitals every shift - no significant change to suggest AWSS is necessary at this time 07/03 -The patient currently acknowledges that he was at one time a very heavy drinker and consumed whiskey as well as "may be 12 beers" a day. However, he reports that his alcohol consumption has more typically been "may be 2 beers a day, but not even every day." He has shown no signs of alcohol withdrawal. 07/06 -There appears to possibly be discrepancy between what the patient reports as his typical alcohol consumption amount and what his son suggests may be as alcohol usage pattern. The son acknowledges that he is not sure that he is aware of his father's drinking habits, and suggests that he that his father sometimes will talk about "going down to the store" and returning him with beer. According to 1 report, the patient may be drinking as much as 30 beers over the course of a day or 2. When we talk to the patient about this, he laughed and assured us that he not only could not drink that many beers if he tried to, he could not afford to buy that many beers. He insists that he typically drinks 2, 3, or maybe 4 beers a day, but not every day. He acknowledges that on occasion he may drink a 6 pack, but he says he does not drink more than that and has not consumed alcohol in greater amounts for a number of years. (4) Depression: 07/03 -The patient continues to report depression. His eyes well up when he is talking about his late , a woman who in her 50s approximately 11 years ago of heart disease following open heart surgery. The patient continues to describe his in glowing terms, and tells us that she was "very sweet" and "very kind." He also notes that he is continuing to miss her on a daily basis. He also discusses his feelings about having his [id number] insist upon his returning the car that he has been using because it belongs to the son and [id number]. (We do not know if this is true, and the son has given no indication that it is.) -Sertraline was added at 50 mg daily. The patient reports that he has had no trouble tolerating it, and plan will be to increase his dose to 100 mg a day beginning tomorrow, provided that no significant side effects emerge during the balance of today. -As noted above, aripiprazole 5 mg daily was added both for psychosis and, hopefully, as an adjunct for sertraline. The dose of aripiprazole is being increased to 10 mg daily (with an additional 5 mg dose this evening) because of persistent auditory hallucinations and delusional thought content. 07/05 - Continue medication regimen as above - as focus of today's conversation was adjusting his antipsychotic medication - we did not discuss adjustments to his dose of sertraline. Consider titration of the medication to 150mg if patient is willing to continue. 07/06 -We are increasing his dose of sertraline from 100 mg a day to 150 mg a day. His working diagnosis remains major depressive disorder, severe, with psychotic features. The content of his hallucinations is mood congruent with depression. He endorses feelings of depression, and are hope is that he will respond favorably to antidepressant medications so that his psychotic features will resolve. -We will entertain the possibility of trying a different antidepressant medication if the patient continues to do not show much favorable response to sertraline. 07/11 - Patient refused sertraline for several days and it was ultimately discontinued 07/09. He is reporting good mood, although still appears blunted and possibly depressed. Continue to monitor. Mental Health & Subst Abuse Tx Psychiatrist Name of Psychiatrist: Alden [facility] Psych[facility]rist[facility] Date of Appointment with Psychiatrist: 07/20/19 Time of Appointment with Psychiatrist: 9 am Psychiatric Appointment Comment: [address] [place] [address] Therapist Name of Therapist: None Head Machinist Name of Head Machinist: [employer] Head Machinist Phone Number for Head Machinist: [phone] Case Management Appointment Comment: Call at discharge to see if able to meet and help with priority voucher Post Discharge Appointments Primary Care Physician Name Of Family Doctor: CATY Crawford - [facility] Date of Appointment with PCP: 07/19/19 Time of Appointment with PCP: 2:45pm Provider Appointment Comment: [address] [place] [address] [place] [address] Smoking Cessation Counseling Tobacco Cessation Medication Prescribed at Discharge: Not Applicable/Non-Smoker Contact Information Discharge Discharge Address: uncertain Discharge Plan Discharge Items Patient Disposition: Home - Self-Care Reason For Visit: PSYCHOSIS,NOS 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 Follow through with your scheduled aftercare appointments. If unable to keep an appointment, please call to reschedule. 2. Take your medication only as prescribed. Medication should not be changed or stopped without the approval of your doctor. In the event of worsening symptoms or concerns about side effects, contact your doctor immediately. 3. Utilize new healthy coping skills, anger management skills, and stress management skills learned during your hospitalization. Journal feelings and process them with a support person. Identify stressors or situations that may result in relapse, deterioration or inappropriate behaviors and develop a plan to deal with those issues. 4. If your coping skills are ineffective and you are in crisis, contact your outpatient providers for direction. If unable to reach your providers, please call [facility] HELP LINE AT or go to the closest Emergency Room. 5. Avoid alcohol and un-prescribed drugs. 6. You have been provided with the Mental Health Advance Directives Pamphlet for your review. AFTERCARE APPOINTMENTS: * Please call your insurance company prior to your scheduled appointment to confirm your aftercare providers are covered. Take your insurance information to your appointments. WHO TO CALL AND WHEN: Medical Emergencies: For questions or emergencies related to your hospital stay, please contact the Inpatient Behavioral Health Unit at [phone]. A production control coordinating clerk is on-call 30/05 for the Behavioral Health Unit for emergencies At any time you feel your situation is an emergency, you may also call 911 immediately. Your Doctors Instructions noted above were prepared by provider Pratibha Biswas MD. Prescriptions: New haloperidol 5 mg Tablet 5 mg PO HS Qty: 30 RF: 0 No Action No Known Home Medications RF: 0 Stand-Alone Forms: [facility] Discharge Orders: Discharge Order (Routine); Ordered 07/12/19 Ordered By: Pratibha Biswas Admission Data Admit Date/Time: 06/29/19 22:08 Attending Provider: Pratibha Biswas Admit Provider: Pratibha Biswas Primary Care Provider: PCP,NO Service: Psychiatry Other Interventions: Discharge Summary Assessment (RN) Last Done: 07/12/19 08:54 PSY Interdisciplinary Discharge Planning Last Done: 07/12/19 09:45 Pending Studies at Discharge: No DC Date/Time DO NOT enter until pt leaves facility: 07/12/19 11:47
[2019-07-12 08:57] VITALS: PULSE 77
== END 2019-07-12 11:47 | disposition home or self-care (01) | DRG 885 ==
LOC: ED 15:12 → 3S 22:08